=== PATIENT | male | born 1970 | race American Indian/Alaskan Native ===

== ENCOUNTER 2018-10-30 13:00 | Inpatient (IN) | payer OTHER ==
--- NOTE | 2018-10-30 13:41 | EDM.PDOC ---
ED HPI GENERAL MEDICAL PROBLEM - General Chief Complaint: Gastrointestinal Problem Stated Complaint: [facility] Time Seen by Provider: 10/30/18 13:40 Source of Information: Reports: Patient History Limitations: Reports: No Limitations - History of Present Illness INITIAL COMMENTS - FREE TEXT/NARRATIVE: pt arrived with jaundice and fatique. Onset: Gradual, Other (pt noticed the jaundice on thur. He has a known history of etoh abuse. He is not having pain. ) Duration: Hour(s): Location: Reports: Abdomen Associated Symptoms: Reports: Loss of Appetite, Weakness, Other (pt is very jaundiced. ) Abdomen Pain Score (Numeric/FACES): 1 - Related Data Allergies Allergy/AdvReac Type Severity Reaction Status Date / Time simvastatin Allergy Cannot Verified 10/30/18 13:08 Remember Home Meds: Home Meds Omeprazole [Prilosec] 40 mg PO DAILY 10/12/13 [History] traZODone 50 mg PO BEDTIME 06/09/16 [History] Baclofen 10 mg PO BEDTIME 10/30/18 [History] diphenhydrAMINE [Benadryl] 25 mg PO BEDTIME 10/30/18 [History] Past Medical History HEENT History: Reports: Allergic Rhinitis Cardiovascular History: Reports: High Cholesterol Respiratory History: Reports: Bronchitis, Recurrent, COPD Gastrointestinal History: Reports: GERD, Hiatal Hernia Musculoskeletal History: Reports: Back Pain, Chronic, Fracture, Osteoarthritis Hematologic History: Reports: B12 Deficiency Dermatologic History: Reports: Eczema - Infectious Disease History Infectious Disease History: Reports: Chicken Pox - Past Surgical History Dermatological Surgical History: Reports: None Social & Family History - Tobacco Use Smoking Status *Q: Former Smoker Used Tobacco, but Quit: Yes Month/Year Tobacco Last Used: 30 - Alcohol Use Days Per Week of Alcohol Use: 7 Number of Drinks Per Day: 5 Total Drinks Per Week: 35 - Recreational Drug Use Recreational Drug Use: No ED ROS GENERAL - Review of Systems Review Of Systems: See Below Constitutional: Reports: Weakness, Fatigue HEENT: Reports: No Symptoms Respiratory: Reports: No Symptoms Cardiovascular: Reports: No Symptoms Endocrine: Reports: No Symptoms GI/Abdominal: Reports: Other ( abdoman is soft. There is no sig tenderness. ) : Reports: No Symptoms Musculoskeletal: Reports: No Symptoms Skin: Reports: Jaundice Neurological: Reports: No Symptoms ED EXAM, GI/ABD - Physical Exam Exam: See Below Text/Narrative:: Pt arrived from [facility] very jaundiced. He has a 21,000 wbc. He does not have sig abdomanal pain. He is not vomiting. He has been drinking heavily until 1 week ago when he quit. General Appearance: Alert, Anxious, Mild Distress, Other (eyes show marked jaundice present. ) Ears: Normal TMs Nose: Normal Inspection Throat/Mouth: Normal Inspection Head: Atraumatic Neck: Normal Inspection Respiratory/Chest: No Respiratory Distress Cardiovascular: Regular Rate, Rhythm GI/Abdominal Exam: Soft, Other (mild lower abdomanal tenderness, no guarding. ) (Male) Exam: Deferred Rectal (Males) Exam: Deferred Back Exam: Normal Inspection Extremities: Normal Inspection Neurological: Alert, Oriented, Normal Cognition Psychiatric: Normal Affect Course - Vital Signs Last Recorded V/S: Last Vital Signs Temp 37.8 C 11/04/18 19:12 Pulse 89 11/04/18 19:12 Resp 18 11/04/18 19:12 BP 117/71 11/04/18 19:12 Pulse Ox 97 11/04/18 19:12 - Orders/Labs/Meds Orders: Medication Orders Al Hydroxide/Mg Hydroxide (Mag-Al Plus) 30 ml PO Q2H PRN PRN Reason: Epigastric pain Baclofen (Lioresal) 10 mg PO BEDTIME BONG Last Admin: 11/03/18 21:36 Dose: 10 mg Admin: 11/02/18 23:07 Dose: 10 mg Admin: 11/01/18 22:02 Dose: 10 mg Admin: 10/31/18 22:24 Dose: 10 mg Admin: 10/30/18 23:35 Dose: Not Given Diphenhydramine HCl (Benadryl) 25 mg PO Q6H PRN PRN Reason: Itching Last Admin: 11/03/18 21:36 Dose: 25 mg Furosemide (Lasix) 40 mg PO BIDDIURETIC BONG Piperacillin/Tazobactam/ (Dextrose 3.375 gm/ Premix) 50 mls @ 100 mls/hr IV Q6H BONG Last Admin: 11/04/18 17:46 Dose: 100 mls/hr Admin: 11/04/18 12:24 Dose: 100 mls/hr Admin: 11/04/18 05:50 Dose: 100 mls/hr Admin: 11/03/18 23:39 Dose: 100 mls/hr Admin: 11/03/18 17:16 Dose: 100 mls/hr Admin: 11/03/18 12:23 Dose: 100 mls/hr Admin: 11/03/18 06:14 Dose: 100 mls/hr Admin: 11/03/18 00:45 Dose: 100 mls/hr Admin: 11/02/18 17:59 Dose: 100 mls/hr Admin: 11/02/18 13:06 Dose: 100 mls/hr Admin: 11/02/18 05:50 Dose: 100 mls/hr Admin: 11/02/18 00:16 Dose: 100 mls/hr Admin: 11/01/18 18:48 Dose: 100 mls/hr Admin: 11/01/18 11:23 Dose: 100 mls/hr Admin: 11/01/18 05:24 Dose: 100 mls/hr Admin: 11/01/18 00:05 Dose: 100 mls/hr Admin: 10/31/18 17:45 Dose: 100 mls/hr Admin: 10/31/18 11:22 Dose: 100 mls/hr Melatonin (Melatonin) 9 mg PO BEDTIME [facility] Last Admin: 11/03/18 21:37 Dose: Not Given Admin: 11/02/18 23:07 Dose: 9 mg Admin: 11/01/18 22:02 Dose: 9 mg Admin: 10/31/18 22:24 Dose: 9 mg Admin: 10/30/18 23:35 Dose: Not Given Ondansetron HCl (Zofran) 4 mg IV Q4H PRN PRN Reason: Nausea/Vomiting Oxycodone HCl (Oxycodone) 5 mg PO Q4H PRN PRN Reason: Pain (moderate 4-6) Last Admin: 11/04/18 16:30 Dose: 5 mg Admin: 11/04/18 12:23 Dose: 5 mg Admin: 11/04/18 07:57 Dose: 5 mg Admin: 11/02/18 23:12 Dose: 5 mg Admin: 11/02/18 17:59 Dose: 5 mg Admin: 11/02/18 11:13 Dose: 5 mg Admin: 11/01/18 19:15 Dose: 5 mg Pantoprazole Sodium (Protonix Iv) 40 mg IVPUSH Q12H [facility] Last Admin: 11/04/18 11:10 Dose: 40 mg Admin: 11/03/18 23:39 Dose: 40 mg Admin: 11/03/18 12:15 Dose: 40 mg Phytonadione (Aquamephyton) 5 mg PO DAILY [facility] Last Admin: 11/04/18 11:04 Dose: 5 mg Admin: 11/03/18 09:26 Dose: 5 mg Admin: 11/02/18 09:20 Dose: 5 mg Admin: 11/01/18 15:36 Dose: 5 mg Senna/Docusate Sodium (Senna Plus) 1 tab PO BID PRN PRN Reason: Constipation Sodium Chloride (Saline Flush) 10 ml FLUSH ASDIRECTED PRN PRN Reason: Keep Vein Open Spironolactone (Aldactone) 25 mg PO BID [facility] Last Admin: 11/04/18 08:35 Dose: 25 mg Admin: 11/03/18 21:36 Dose: 25 mg Admin: 11/03/18 12:16 Dose: 25 mg Labs: Laboratory Tests 10/30/18 10/30/18 10/30/18 Range/Units 04:50 04:50 04:50 Ammonia (11-32) mmol/L [id number] 224 H (90-200) mg/dL Anti-Mitochondrial Ab 13.4 (0.0-20.0) Units Hepatitis A IgM Ab Negative (Negative) Hep Bs Antigen Negative (Negative) Hep B Core IgM Ab Negative (Negative) Hepatitis C Antibody <0.1 (0.0-0.9) s/co ratio 10/30/18 Range/Units 14:10 Ammonia 43 H (11-32) mmol/L [id number]-[id number] (90-200) mg/dL Anti-Mitochondrial Ab (0.0-20.0) Units Hepatitis A IgM Ab (Negative) Hep Bs Antigen (Negative) Hep B Core IgM Ab (Negative) Hepatitis C Antibody (0.0-0.9) s/co ratio Meds: Medications Generic Name Dose Route Start Last Admin Trade Name Freq PRN Reason Stop Dose Admin Al Hydroxide/Mg Hydroxide 30 ml 10/30/18 18:49 Mag-Al Plus PO Q2H PRN Epigastric pain Baclofen 10 mg 10/30/18 21:00 11/03/18 21:36 Lioresal PO 10 mg BEDTIME BONG Administration Diphenhydramine HCl 25 mg 11/03/18 11:52 11/03/18 21:36 Benadryl PO 25 mg Q6H PRN Administration Itching Furosemide 40 mg 11/05/18 08:00 Lasix PO BIDDIURETIC BONG Piperacillin/Tazobactam/ 50 mls @ 100 mls/hr 10/31/18 12:00 11/04/18 17:46 Dextrose 3.375 gm/ Premix IV 100 mls/hr Q6H BONG Administration Melatonin 9 mg 10/30/18 21:00 11/03/18 21:37 Melatonin PO Not Given BEDTIME BONG Ondansetron HCl 4 mg 10/30/18 16:45 Zofran IV Q4H PRN Nausea/Vomiting Oxycodone HCl 5 mg 10/30/18 16:45 11/04/18 16:30 Oxycodone PO 5 mg Q4H PRN Administration Pain (moderate 4-6) Pantoprazole Sodium 40 mg 11/03/18 11:30 11/04/18 11:10 Protonix Iv IVPUSH 40 mg Q12H BONG Administration Phytonadione 5 mg 11/01/18 15:00 11/04/18 11:04 Aquamephyton PO 5 mg DAILY BONG Administration Senna/Docusate Sodium 1 tab 10/30/18 16:45 Senna Plus PO BID PRN Constipation Sodium Chloride 10 ml 10/30/18 16:45 Saline Flush FLUSH ASDIRECTED PRN Keep Vein Open Spironolactone 25 mg 11/03/18 11:30 11/04/18 08:35 Aldactone PO 25 mg BID BONG Administration Discontinued Medications Generic Name Dose Route Start Last Admin Trade Name Freq PRN Reason Stop Dose Admin Bisacodyl 10 mg 10/30/18 15:02 10/30/18 16:49 Dulcolax RECTAL 10/30/18 15:03 10 mg ONETIME ONE Administration Bisacodyl Confirm 10/30/18 16:53 10/30/18 17:45 Dulcolax Administered 10/30/18 16:54 10 mg Dose Administration 10 mg .ROUTE .STK-MED ONE Bisacodyl 10 mg 11/02/18 10:30 11/02/18 10:38 Dulcolax PO 11/02/18 10:31 10 mg ONETIME ONE Administration Bisacodyl 10 mg 11/02/18 20:00 11/02/18 19:47 Dulcolax PO 11/02/18 20:01 10 mg ONETIME ONE Administration Fentanyl Confirm 11/03/18 07:45 Sublimaze Administered 11/03/18 07:46 Dose 100 mcg .ROUTE .STK-MED ONE Furosemide 20 mg 11/03/18 12:00 11/03/18 12:17 Lasix IVPUSH 11/03/18 12:01 20 mg NOW ONE Administration Furosemide 20 mg 11/04/18 10:15 11/04/18 11:10 Lasix IVPUSH 11/04/18 10:16 20 mg ONETIME ONE Administration Furosemide 20 mg 11/04/18 16:00 11/04/18 16:22 Lasix IVPUSH 11/04/18 16:01 20 mg ONETIME ONE Administration Sodium Chloride 1,000 mls @ 500 mls/hr 10/30/18 13:45 10/30/18 13:44 Normal Saline IV 500 mls/hr ASDIRECTED BONG Administration Sodium Chloride 100 mls @ 3 mls/sec 10/30/18 14:32 10/30/18 16:44 Normal Saline IV 10/30/18 14:33 3 mls/sec ONETIME ONE Administration Sodium Chloride 79 mls @ 3 mls/sec 10/30/18 15:05 10/30/18 15:09 Normal Saline IV 10/30/18 15:06 3 mls/sec ONETIME ONE Administration Piperacillin/Tazobactam/ 50 mls @ 100 mls/hr 10/30/18 18:00 10/31/18 05:38 Dextrose 3.375 gm/ Premix IV 100 mls/hr Q6H BONG Administration Sodium Chloride 1,000 mls @ 125 mls/hr 10/30/18 16:45 10/31/18 11:23 Normal Saline IV 125 mls/hr ASDIRECTED BONG Administration Potassium Chloride 20 meq/ 102 mls @ 51 mls/hr 10/31/18 06:00 10/31/18 05:59 Lidocaine HCl 2 ml/ Premix IV 10/31/18 07:59 51 mls/hr ONETIME ONE Administration Potassium Chloride Confirm 10/31/18 05:54 10/31/18 10:39 Kcl 20 Meq In Water 100 Ml Administered 10/31/18 05:55 Not Given Dose 100 mls @ as directed .ROUTE .STK-MED ONE Sodium Chloride 1,000 mls @ 500 mls/hr 11/01/18 20:30 11/01/18 20:50 Normal Saline IV 500 mls/hr ASDIRECTED BONG Administration Sodium Chloride 1,000 mls @ 125 mls/hr 11/01/18 22:00 11/02/18 05:52 Normal Saline IV 125 mls/hr ASDIRECTED BONG Administration Sodium Chloride 1,000 mls @ 50 mls/hr 11/02/18 10:00 11/02/18 19:47 Normal Saline IV 50 mls/hr ASDIRECTED BONG Administration Sodium Chloride 100 mls @ 3.5 mls/sec 11/02/18 12:04 11/02/18 12:17 Normal Saline IV 11/02/18 12:05 3 mls/sec ONETIME ONE Administration Ibuprofen 600 mg 10/30/18 23:28 11/02/18 17:13 Motrin PO 600 mg Q6H PRN Administration Fever Influenza Virus Vaccine 1 each 10/31/18 14:00 10/31/18 15:14 Pharmacy To Dose - Influenza Vaccine IM 10/31/18 14:01 Not Given ONETIME ONE Influenza Virus Vaccine 60 mcg 11/01/18 10:00 11/01/18 11:21 Fluzone Quad 2731-6905 Syringe IM 11/01/18 10:01 60 mcg .ONCE ONE Administration Iohexol 20 ml 11/02/18 10:30 11/02/18 12:18 Omnipaque PO 20 ml ASDIRECTED BONG Administration Iopamidol 150 ml 10/30/18 14:45 10/30/18 15:09 Isovue-300 (61%) IV 128 ml . DIRECTED BONG Administration Iopamidol 128 ml 10/30/18 15:15 Isovue-300 (61%) IV . DIRECTED BONG Iopamidol 100 ml 11/02/18 12:15 11/02/18 12:23 Isovue-300 (61%) IV 11/02/18 13:00 100 ml . DIRECTED BONG Administration Midazolam HCl Confirm 11/03/18 07:45 Versed 1 Mg/Ml Administered 11/03/18 07:46 Dose 2 mg .ROUTE .STK-MED ONE Polyethylene Glycol 238 gm 11/02/18 17:00 11/02/18 16:49 Miralax PO 11/02/18 17:01 238 gm ONETIME ONE Administration Potassium Chloride 20 meq 10/31/18 05:38 10/31/18 10:39 Klor-Con M20 PO 10/31/18 05:39 Not Given ONETIME ONE Potassium Chloride 40 meq 10/31/18 09:00 10/31/18 11:22 Klor-Con M20 PO 10/31/18 09:01 40 meq ONETIME ONE Administration Potassium Chloride 40 meq 10/31/18 14:30 10/31/18 15:30 Klor-Con M20 PO 10/31/18 14:31 40 meq ONETIME ONE Administration Potassium Chloride 40 meq 11/01/18 09:00 11/01/18 15:31 Klor-Con M20 PO 11/01/18 09:01 40 meq ONETIME ONE Administration Potassium Chloride 40 meq 11/01/18 15:00 11/01/18 15:51 Klor-Con M20 PO 11/01/18 15:01 40 meq ONETIME ONE Administration Potassium Chloride 40 meq 11/01/18 21:00 11/01/18 22:02 Klor-Con M20 PO 11/01/18 21:01 40 meq ONETIME ONE Administration Potassium Chloride 40 meq 11/02/18 09:00 11/02/18 09:08 Klor-Con M20 PO 11/02/18 09:01 40 meq ONETIME ONE Administration Potassium Chloride 40 meq 11/02/18 13:00 11/02/18 13:07 Klor-Con M20 PO 11/02/18 13:01 40 meq ONETIME ONE Administration Potassium Chloride 40 meq 11/04/18 09:30 11/04/18 11:10 Klor-Con M20 PO 11/04/18 09:31 40 meq ONETIME ONE Administration Propofol Confirm 11/03/18 07:45 Diprivan 20 Ml Administered 11/03/18 07:46 Dose 200 mg .ROUTE .STK-MED ONE Propofol Confirm 11/03/18 07:55 Diprivan 20 Ml Administered 11/03/18 07:56 Dose 200 mg .ROUTE .STK-MED ONE Sodium Chloride 10 ml 10/30/18 15:05 10/30/18 15:09 Saline Flush FLUSH 10 ml ONETIME PRN Administration PER RADIOLOGY PROTOCOL Sodium Chloride 10 ml 11/02/18 12:04 11/02/18 12:17 Saline Flush FLUSH 11/02/18 12:05 10 ml ONETIME ONE Administration - Re-Assessments/Exams Free Text/Narrative Re-Assessment/Exam: 10/30/18 14:11 pt has a bilirun of 23. He is not vomiting or having severe pain. He has a wbc of 21,000. > Departure - Departure Time of Disposition: 14:38 Disposition: Admitted As Inpatient 68 Condition: Fair Clinical Impression: Liver disease due to alcohol, Jaundice - Discharge Information
[2018-10-30] MEDS ORDERED: Sodium Chloride 0.9% 1,000 ML IV SCH (13:45)
[2018-10-30] MEDS ORDERED: Sodium Chloride 0.9% 100 ML IV ONE (14:32)
[2018-10-30] MEDS ORDERED: Iopamidol 612 MG/ML 150 ML Bottle IV SCH ×2 (14:45→15:15)
[2018-10-30] MEDS ORDERED: Bisacodyl 10 MG Supp RECTAL ONE (15:02)
[2018-10-30] MEDS ORDERED: Sodium Chloride 0.9% 10 ML Syringe FLUSH PRN ×2 (15:05→16:45)
--- NOTE | 2018-10-30 16:38 | PCM.HP ---
H&P History of Present Illness - General Date of Service: 10/30/18 Admit Problem/Dx: Admission Diagnosis/Problem Admission Diagnosis/Problem Jaundice Source of Information: Patient, Family, Provider, RN Notes Reviewed History Limitations: Reports: No Limitations - History of Present Illness Initial Comments - Free Text/Narative: Mr. Mckee is a 48-year-old gentleman who is admitted through the emergency department with jaundice and elevation in bilirubin of 24. He has a known and long-standing history of daily alcohol use, reporting 4-5 drinks per day. For the past week has noted development of significant jaundice and stop consuming alcohol about 6 days ago. He denies any preceding history of liver disease and also denies any family history of liver disease. Current medications include omeprazole, Lipitor, and trazodone. He has no significant risk factors for infectious hepatitis. Associated with development of jaundice has been some nausea and progressive weakness with fatigue. - Related Data Allergies/Adverse Reactions: Allergies Allergy/AdvReac Type Severity Reaction Status Date / Time simvastatin Allergy Cannot Verified 10/30/18 13:08 Remember Home Medications: Home Meds Omeprazole [Prilosec] 40 mg PO DAILY 10/12/13 [History] traZODone 50 mg PO BEDTIME 06/09/16 [History] Baclofen 10 mg PO BEDTIME 10/30/18 [History] diphenhydrAMINE [Benadryl] 25 mg PO BEDTIME 10/30/18 [History] Past Medical History HEENT History: Reports: Allergic Rhinitis Cardiovascular History: Reports: High Cholesterol Respiratory History: Reports: Bronchitis, Recurrent, COPD Gastrointestinal History: Reports: GERD, Hiatal Hernia Musculoskeletal History: Reports: Back Pain, Chronic, Fracture, Osteoarthritis Hematologic History: Reports: B12 Deficiency Dermatologic History: Reports: Eczema - Infectious Disease History Infectious Disease History: Reports: Chicken Pox - Past Surgical History Dermatological Surgical History: Reports: None Social & Family History - Tobacco Use Smoking Status *Q: Former Smoker Used Tobacco, but Quit: Yes Month/Year Tobacco Last Used: 30 - Alcohol Use Days Per Week of Alcohol Use: 7 Number of Drinks Per Day: 5 Total Drinks Per Week: 35 - Recreational Drug Use Recreational Drug Use: No H&P Review of Systems - Review of Systems: Review Of Systems: See Below General: Reports: Weakness. Denies: Fever, Chills HEENT: Reports: No Symptoms Pulmonary: Reports: No Symptoms Cardiovascular: Reports: No Symptoms Gastrointestinal: Reports: Decreased Appetite, Nausea. Denies: Abdominal Pain, Black Stool, Bloody Stool, Constipation, Diarrhea, Difficulty Swallowing, Distension, Vomiting Genitourinary: Reports: No Symptoms Musculoskeletal: Reports: No Symptoms Skin: Reports: Jaundice, Bruising, Change in Color. Denies: Pruritis, Wound, Change in Hair/Nails Psychiatric: Reports: No Symptoms Neurological: Reports: No Symptoms Hematologic/Lymphatic: Reports: No Symptoms Immunologic: Reports: No Symptoms Exam - Exam Exam: See Below - Vital Signs Vital Signs: Last Vital Signs Temp 98.3 F 10/30/18 13:06 Pulse 84 10/30/18 13:54 Resp 18 10/30/18 13:54 BP 122/70 10/30/18 13:54 Pulse Ox 97 10/30/18 13:54 Weight: 188 lb - Exam Quality Assessment: DVT Prophylaxis General: Alert, Oriented, Cooperative, Mild Distress HEENT: Conjunctiva Clear, Hearing Intact, Mucosa Moist & [place], Normal Nasal Septum, Posterior Pharynx Clear, Pupils Equal Neck: Supple, Trachea Midline, +2 Carotid Pulse wo Bruit Lungs: Clear to Auscultation, Normal Respiratory Effort Cardiovascular: Regular Rate, Regular Rhythm, Normal S1, Normal S2. No: Systolic Murmur, Diastolic Murmur GI/Abdominal Exam: Soft, Non-Tender, No Organomegaly, No Distention Back Exam: Normal Inspection, Full Range of Motion Extremities: Non-Tender, No Pedal Edema Skin: Warm, Dry, Intact, Other (Jaundice, spider angiomas upper chest and back) Neurological: Cranial Nerves Intact, Strength Equal Bilateral, Normal Speech, Normal Tone, Sensation Intact. No: Focal Deficit Neuro Extensive - Mental Status: Alert, Oriented x3, Normal Mood/Affect, Normal Cognition, Memory Intact - Patient Data Lab Results Last 24 hrs: Laboratory Results - last 24 hr 10/30/18 Range/Units 14:10 Ammonia 43 H (11-32) mmol/L *Q Meaningful Use (ADM) - VTE Risk Assess *Q Each Risk Factor Represents 1 Point: Age 41 - 59 years, Obesity ( BMI > 25 kg/m2 ) Total Score 1 Point Risk Factors: 2 Each Risk Factor Represents 2 Points: None Total Score 2 Point Risk Factors: 0 Each Risk Factor Represents 3 Points: None Total Score 3 Point Risk Factors: 0 Each Risk Factor Represents 5 Points: None Total Score 5 Point Risk Factors: 0 Venous Thromboembolism Risk Factor Score *Q: 2 Problem List Initiated/Reviewed/Updated: Yes Orders Last 24hrs: Active Orders 24 hr Category Date Time Status Patient Status Manage Transfer [TRANSFER] Routine ADT 10/30/18 15:59 Active Enema [RC] ASDIRECTED Care 10/30/18 15:02 Active Abdomen Ltd [US] Stat Exams 10/30/18 13:35 Taken Abdomen Pelvis w Cont [CT] Stat Exams 10/30/18 14:22 Taken Iopamidol [Isovue-300 (61%)] Med 10/30/18 15:15 Active 128 ml IV . DIRECTED Sodium Chloride 0.9% [Normal Saline] 1,000 ml Med 10/30/18 13:45 Active IV ASDIRECTED Sodium Chloride 0.9% [Saline Flush] Med 10/30/18 15:05 Active 10 ml FLUSH ONETIME PRN Resuscitation Status Routine Resus Stat 10/30/18 16:02 Ordered Medication Orders Sodium Chloride (Normal Saline) 1,000 mls @ 500 mls/hr IV ASDIRECTED BONG Last Admin: 10/30/18 13:44 Dose: 500 mls/hr Iopamidol (Isovue-300 (61%)) 128 ml IV . DIRECTED BONG Sodium Chloride (Saline Flush) 10 ml FLUSH ONETIME PRN PRN Reason: PER RADIOLOGY PROTOCOL Last Admin: 10/30/18 15:09 Dose: 10 ml Assessment/Plan Comment:: ASSESSMENT AND PLAN SEVERE JAUNDICE-likely secondary to underlying cirrhosis, history of chronic alcohol use. Will require further evaluation for other underlying liver disease. CT scan shows evidence of cirrhosis, spider angiomas noted upper chest and back. Bilirubin elevated at 24 with a direct bilirubin of 19. Ferritin level significantly elevated at 2400. -Stop all alcohol use -IV fluids for hydration -Medication for pain and nausea as needed -Further laboratory evaluation including; iron and iron-binding, serology for viral hepatitis, alpha-1 antitrypsin, JAQUELINE, anti-smooth muscle antibody, antimitochondrial antibody, ceruloplasmin -MRCP in a.m. to rule out obstructing process -Outpatient referral to gastroenterology CHRONIC ALCOHOL DEPENDENCE -Alcohol cessation -Outpatient alcohol treatment MAINTENANCE ISSUES -DVT prophylaxis; INR elevated at greater than 2 -GI prophylaxis; not indicated -Oneal catheter; not indicated -Nutrition; regular diet -Nicotine dependence; not required CODE STATUS-FULL CODE ADMISSION STATUS-patient will be admitted to inpatient status, expect at least a 2 night hospital stay for evaluation and management of problems as outlined above. At the time of this admission I do not reasonably expected evaluation and management of this problem will require more than a 96 hour hospital stay. DISPOSITION-anticipate discharge to home after the hospital stay. PRIMARY CARE PROVIDER-
[2018-10-30] MEDS ORDERED: Ondansetron 4 MG/2 ML SDV IV PRN (16:45)
[2018-10-30] MEDS ORDERED: Bisacodyl 10 MG Supp ONE (16:53)
[2018-10-30] MEDS: Sodium Chloride 0.9% 1,000 ML IV SCH (17:40)
[2018-10-30] MEDS: Piperacillin/Tazobactam/Dext 3.375 GM in Premix Bag 1 BAG IV SCH ×2 (17:41→23:39)
[2018-10-30] MEDS ORDERED: Aluminum Hydroxide/Magnesium Hydroxide/Simethicone Susp 30 ML Cup PO PRN (18:49)
[2018-10-30] MEDS: Baclofen 10 MG Tab PO SCH (23:35)
[2018-10-30] MEDS: Melatonin 3 MG Tab PO SCH (23:35)
[2018-10-30] MEDS: Ibuprofen 600 MG Tab PO PRN (23:38)
--- NOTE | 2018-10-31 01:04 | PCM.SN ---
- Free Text/Narrative Note: call at 23:28 call from [address] [place] [address], request for medication for fever O:temp 101.5-94-18 B/P 119/73 O2 sat 96% A: fever P: continue IV fluids and medications, add Motrin 600mg po every 6 hours as needed for pain or fever.
[2018-10-31] MEDS: Sodium Chloride 0.9% 1,000 ML IV SCH ×2 (02:50→11:23)
[2018-10-31] MEDS: Piperacillin/Tazobactam/Dext 3.375 GM in Premix Bag 1 BAG IV SCH ×3 (05:38→17:45)
[2018-10-31] MEDS ORDERED: Potassium Chloride 20 MEQ Tab.ER PO ONE ×3 (05:38→14:30)
[2018-10-31] MEDS ORDERED: Potassium Chloride 20 MEQ, Lidocaine 1% 2 ML in Sodium Chloride 0.9% 100 ML IV SCH (05:45)
[2018-10-31] MEDS ORDERED: Potassium Chloride 100 ML ONE (05:54)
[2018-10-31] MEDS ORDERED: Potassium Chloride 20 MEQ, Lidocaine 1% 2 ML in Premix Bag 1 BAG IV ONE (06:00)
--- NOTE | 2018-10-31 14:11 | PCM.PN ---
- General Info Date of Service: 10/31/18 Subjective Update: Mr. Mckee has been stable since yesterday, he's had no nausea or vomiting and appetite has been excellent. Modest improvement in bilirubin level since admission. Evaluation for underlying etiology pending with several laboratory studies having been sent to the reference lab. Functional Status: Reports: Pain Controlled, Tolerating Diet, Urinating - Review of Systems General: Reports: Fever, Weakness. Denies: Chills Pulmonary: Reports: No Symptoms Cardiovascular: Reports: No Symptoms Gastrointestinal: Denies: Abdominal Pain, Difficulty Swallowing, Nausea, Vomiting Skin: Reports: Jaundice - Patient Data Vitals - Most Recent: Last Vital Signs Temp 96.4 F 10/31/18 10:29 Pulse 91 10/31/18 10:29 Resp 16 10/31/18 10:29 BP 136/73 10/31/18 10:29 Pulse Ox 98 10/31/18 10:29 Weight - Most Recent: 186 lb 5.99 oz I&O - Last 24 Hours: Intake & Output 10/30/18 10/31/18 10/31/18 22:59 06:59 14:59 Intake Total 1379 240 Output Total 300 Balance -300 1379 240 Lab Results Last 24 Hours: Laboratory Results - last 24 hr 10/30/18 10/30/18 10/31/18 Range/Units 14:10 16:45 04:50 WBC 19.4 H (4.5-11.0) K/uL RBC 3.77 L (4.30-5.90) M/uL Hgb 12.9 D (12.0-15.0) g/dL Hct 36.1 L (40.0-54.0) % MCV 96 (80-98) fL MCH 34 H (27-31) pg MCHC 36 (32-36) % Plt Count 328 (150-400) K/uL Neut % (Auto) 83 H (36-66) % Lymph % (Auto) 6 L (24-44) % [place] % (Auto) 10 H (2-6) % Eos % (Auto) 1 L (2-4) % Baso % (Auto) 1 (0-1) % PT (9.5-12.0) sec INR (0.80-1.20) Sodium (140-148) mmol/L Potassium (3.6-5.2) mmol/L Chloride (100-108) mmol/L Carbon Dioxide (21-32) mmol/L Anion Gap (5.0-14.0) mmol/L BUN (7-18) mg/dL Creatinine (0.8-1.3) mg/dL Est Cr Clr Drug Dosing mL/min Estimated GFR (MDRD) (>60) Glucose (74-106) mg/dL Calcium (8.5-10.1) mg/dL Magnesium (1.8-2.4) mg/dL Iron (65-175) ug/dL TIBC (250-450) ug/dl % Saturation (20-55) % Ferritin 2417 H (8-388) ng/ml Total Bilirubin (0.2-1.0) mg/dL Direct Bilirubin 19.83 H (0.0-0.2) mg/dL AST (15-37) U/L ALT (12-78) U/L Alkaline Phosphatase (46-116) U/L Ammonia 43 H (11-32) mmol/L Total Protein (6.4-8.2) g/dL Albumin (3.4-5.0) g/dL Globulin (2.3-3.5) g/dL Albumin/Globulin Ratio (1.2-2.2) 10/31/18 10/31/18 10/31/18 Range/Units 04:50 04:50 04:50 WBC (4.5-11.0) K/uL RBC (4.30-5.90) M/uL Hgb (12.0-15.0) g/dL Hct (40.0-54.0) % MCV (80-98) fL MCH (27-31) pg MCHC (32-36) % Plt Count (150-400) K/uL Neut % (Auto) (36-66) % Lymph % (Auto) (24-44) % [place] % (Auto) (2-6) % Eos % (Auto) (2-4) % Baso % (Auto) (0-1) % PT 22.6 H (9.5-12.0) sec INR 2.15 H (0.80-1.20) Sodium 136 L (140-148) mmol/L Potassium 2.8 L* (3.6-5.2) mmol/L Chloride 101 (100-108) mmol/L Carbon Dioxide 24 (21-32) mmol/L Anion Gap 13.8 (5.0-14.0) mmol/L BUN 15 (7-18) mg/dL Creatinine 1.2 (0.8-1.3) mg/dL Est Cr Clr Drug Dosing 74.42 mL/min Estimated GFR (MDRD) > 60 (>60) Glucose 94 (74-106) mg/dL Calcium 7.2 L (8.5-10.1) mg/dL Magnesium (1.8-2.4) mg/dL Iron 78 (65-175) ug/dL TIBC 90 L (250-450) ug/dl % Saturation 87 H (20-55) % Ferritin (8-388) ng/ml Total Bilirubin 21.0 H D (0.2-1.0) mg/dL Direct Bilirubin 18.55 H (0.0-0.2) mg/dL AST 130 H (15-37) U/L ALT 43 (12-78) U/L Alkaline Phosphatase 190 H (46-116) U/L Ammonia (11-32) mmol/L Total Protein 5.9 L (6.4-8.2) g/dL Albumin 1.5 L (3.4-5.0) g/dL Globulin 4.4 H (2.3-3.5) g/dL Albumin/Globulin Ratio 0.3 L (1.2-2.2) 10/31/18 Range/Units 05:37 WBC (4.5-11.0) K/uL RBC (4.30-5.90) M/uL Hgb (12.0-15.0) g/dL Hct (40.0-54.0) % MCV (80-98) fL MCH (27-31) pg MCHC (32-36) % Plt Count (150-400) K/uL Neut % (Auto) (36-66) % Lymph % (Auto) (24-44) % [place] % (Auto) (2-6) % Eos % (Auto) (2-4) % Baso % (Auto) (0-1) % PT (9.5-12.0) sec INR (0.80-1.20) Sodium (140-148) mmol/L Potassium (3.6-5.2) mmol/L Chloride (100-108) mmol/L Carbon Dioxide (21-32) mmol/L Anion Gap (5.0-14.0) mmol/L BUN (7-18) mg/dL Creatinine (0.8-1.3) mg/dL Est Cr Clr Drug Dosing mL/min Estimated GFR (MDRD) (>60) Glucose (74-106) mg/dL Calcium (8.5-10.1) mg/dL Magnesium 2.1 (1.8-2.4) mg/dL Iron (65-175) ug/dL TIBC (250-450) ug/dl % Saturation (20-55) % Ferritin (8-388) ng/ml Total Bilirubin (0.2-1.0) mg/dL Direct Bilirubin (0.0-0.2) mg/dL AST (15-37) U/L ALT (12-78) U/L Alkaline Phosphatase (46-116) U/L Ammonia (11-32) mmol/L Total Protein (6.4-8.2) g/dL Albumin (3.4-5.0) g/dL Globulin (2.3-3.5) g/dL Albumin/Globulin Ratio (1.2-2.2) Med Orders - Current: Current Medications Al Hydroxide/Mg Hydroxide (Mag-Al Plus) 30 ml PO Q2H PRN PRN Reason: Epigastric pain Baclofen (Lioresal) 10 mg PO BEDTIME [facility] Last Admin: 10/30/18 23:35 Dose: Not Given Piperacillin/Tazobactam/ (Dextrose 3.375 gm/ Premix) 50 mls @ 100 mls/hr IV Q6H [facility] Last Admin: 10/31/18 11:22 Dose: 100 mls/hr Ibuprofen (Motrin) 600 mg PO Q6H PRN PRN Reason: Fever Last Admin: 10/30/18 23:38 Dose: 600 mg Melatonin (Melatonin) 9 mg PO BEDTIME [facility] Last Admin: 10/30/18 23:35 Dose: Not Given Ondansetron HCl (Zofran) 4 mg IV Q4H PRN PRN Reason: Nausea/Vomiting Oxycodone HCl (Oxycodone) 5 mg PO Q4H PRN PRN Reason: Pain (moderate 4-6) Potassium Chloride (Klor-Con M20) 40 meq PO ONETIME ONE Stop: 10/31/18 14:31 Senna/Docusate Sodium (Senna Plus) 1 tab PO BID PRN PRN Reason: Constipation Sodium Chloride (Saline Flush) 10 ml FLUSH ASDIRECTED PRN PRN Reason: Keep Vein Open Discontinued Medications Bisacodyl (Dulcolax) 10 mg RECTAL ONETIME ONE Stop: 10/30/18 15:03 Last Admin: 10/30/18 16:49 Dose: 10 mg Bisacodyl (Dulcolax) Confirm Administered Dose 10 mg .ROUTE .STK-MED ONE Stop: 10/30/18 16:54 Last Admin: 10/30/18 17:45 Dose: 10 mg Sodium Chloride (Normal Saline) 1,000 mls @ 500 mls/hr IV ASDIRECTED [facility] Last Admin: 10/30/18 13:44 Dose: 500 mls/hr Sodium Chloride (Normal Saline) 100 mls @ 3 mls/sec IV ONETIME ONE Stop: 10/30/18 14:33 Last Admin: 10/30/18 16:44 Dose: 3 mls/sec Sodium Chloride (Normal Saline) 79 mls @ 3 mls/sec IV ONETIME ONE Stop: 10/30/18 15:06 Last Admin: 10/30/18 15:09 Dose: 3 mls/sec Piperacillin/Tazobactam/ (Dextrose 3.375 gm/ Premix) 50 mls @ 100 mls/hr IV Q6H [facility] Last Admin: 10/31/18 05:38 Dose: 100 mls/hr Sodium Chloride (Normal Saline) 1,000 mls @ 125 mls/hr IV ASDIRECTED [facility] Last Admin: 10/31/18 11:23 Dose: 125 mls/hr Potassium Chloride 20 meq/ (Lidocaine HCl 2 ml/ Premix) 102 mls @ 51 mls/hr IV ONETIME ONE Stop: 10/31/18 07:59 Last Admin: 10/31/18 05:59 Dose: 51 mls/hr Potassium Chloride (Kcl 20 Meq In Water 100 Ml) Confirm Administered Dose 100 mls @ as directed .ROUTE .STK-MED ONE Stop: 10/31/18 05:55 Last Admin: 10/31/18 10:39 Dose: Not Given Influenza Virus Vaccine (Pharmacy To Dose - Influenza Vaccine) 1 each IM ONETIME ONE Stop: 10/31/18 14:01 Iopamidol (Isovue-300 (61%)) 150 ml IV . DIRECTED [facility] Last Admin: 10/30/18 15:09 Dose: 128 ml Iopamidol (Isovue-300 (61%)) 128 ml IV . DIRECTED [facility] Potassium Chloride (Klor-Con M20) 20 meq PO ONETIME ONE Stop: 10/31/18 05:39 Last Admin: 10/31/18 10:39 Dose: Not Given Potassium Chloride (Klor-Con M20) 40 meq PO ONETIME ONE Stop: 10/31/18 09:01 Last Admin: 10/31/18 11:22 Dose: 40 meq Sodium Chloride (Saline Flush) 10 ml FLUSH ONETIME PRN PRN Reason: PER RADIOLOGY PROTOCOL Last Admin: 10/30/18 15:09 Dose: 10 ml - Exam Quality Assessment: DVT Prophylaxis General: Alert, Oriented, Cooperative, Mild Distress Lungs: Clear to Auscultation, Normal Respiratory Effort Cardiovascular: Regular Rate, Regular Rhythm, No Murmurs GI/Abdominal Exam: Soft, Non-Tender, No Organomegaly, No Distention Extremities: Normal Inspection, Non-Tender, No Pedal Edema Skin: Other (Jaundice) - Problem List Review Problem List Initiated/Reviewed/Updated: Yes - My Orders Last 24 Hours: My Active Orders 10/30/18 16:02 Resuscitation Status Routine 10/30/18 16:45 Patient Status [ADT] Routine Ambulate [RC] QID Height and Weight [RC] DAILY Intake and Output [RC] QSHIFT Notify Provider Vital Signs [RC] ASDIRECTED Oxygen Therapy [RC] PRN Peripheral IV Care [RC] Q12H Up to Chair [RC] QID Vital Signs [RC] Q4H Docusate Sodium/Sennosides [Senna Plus] 1 tab PO BID PRN Ondansetron [Zofran] 4 mg IV Q4H PRN Sodium Chloride 0.9% [Saline Flush] 10 ml FLUSH ASDIRECTED PRN oxyCODONE 5 mg PO Q4H PRN Peripheral IV Insertion Adult [OM.PC] Routine Sequential Compression Device [OM.PC] Per Unit Routine 10/30/18 17:00 ACTIN (SMOOTH MUSCLE) ANTIBODY Routine JAQUELINE W/RFX TO ALL IF POSITIVE Routine CERULOPLASMIN Routine 10/30/18 18:49 Alum Hydrox/Mag Hydrox/Simeth [Mag-Al Plus] 30 ml PO Q2H PRN 10/30/18 21:00 Baclofen [Lioresal] 10 mg PO BEDTIME Melatonin 9 mg PO BEDTIME 10/31/18 12:00 Piperacillin/Tazobactam/Dext [Zosyn in Dextrose Iso-Osmotic 3.375 GM] 3.375 gm Premix Bag 1 bag IV Q6H 10/31/18 13:58 Potassium Chloride [Klor-Con M20] 40 meq PO ONETIME ONE 10/31/18 14:00 Convert IV to Saline Lock [OM.PC] Routine 10/31/18 17:00 POTASSIUM,K [CHEM] Stat 11/01/18 05:00 CBC WITH AUTO DIFF [HEME] Timed COMPREHENSIVE METABOLIC PN,CMP [CHEM] Timed MAGNESIUM [CHEM] Timed 11/01/18 08:00 Cholangiopancreatography [MR] Urgent - Plan Plan:: ASSESSMENT AND PLAN SEVERE JAUNDICE-likely secondary to underlying cirrhosis, history of chronic alcohol use. Will require further evaluation for other underlying liver disease. CT scan shows evidence of cirrhosis, spider angiomas noted upper chest and back. On June improvement in bilirubin since yesterday, no nausea or vomiting, appetite improved. Unable to obtain MRCP today because of the weather , staff was unable to make it into the hospital. -Stop all alcohol use -Saline lock IV -Medication for pain and nausea as needed -Further laboratory evaluation including; serology for viral hepatitis, alpha-1 antitrypsin, JAQUELINE, anti-smooth muscle antibody, antimitochondrial antibody, ceruloplasmin -MRCP in a.m. to rule out obstructing process -Outpatient referral to gastroenterology CHRONIC ALCOHOL DEPENDENCE -Alcohol cessation -Outpatient alcohol treatment MAINTENANCE ISSUES -DVT prophylaxis; INR elevated at greater than 2 -GI prophylaxis; not indicated -Oneal catheter; not indicated -Nutrition; regular diet -Nicotine dependence; not required CODE STATUS-FULL CODE ADMISSION STATUS-patient will be admitted to inpatient status, expect at least a 2 night hospital stay for evaluation and management of problems as outlined above. At the time of this admission I do not reasonably expected evaluation and management of this problem will require more than a 96 hour hospital stay. DISPOSITION-anticipate discharge to home after the hospital stay. PRIMARY CARE PROVIDER-
[2018-10-31] MEDS: Ibuprofen 600 MG Tab PO PRN (19:32)
[2018-10-31] MEDS: Melatonin 3 MG Tab PO SCH (22:24)
[2018-10-31] MEDS: Baclofen 10 MG Tab PO SCH (22:24)
[2018-11-01] MEDS: Piperacillin/Tazobactam/Dext 3.375 GM in Premix Bag 1 BAG IV SCH ×4 (00:05→18:48)
[2018-11-01] MEDS ORDERED: Potassium Chloride 20 MEQ Tab.ER PO ONE ×3 (09:00→21:00)
--- NOTE | 2018-11-01 13:46 | MR ---
MRCP Technique: Routine MRCP sequences. The gallbladder wall is markedly thickened. The wall measures 9 mm. There is pericholecystic fluid. There is trace ascites around the margins of the liver. There is material within the gallbladder. The findings may reflect tumefactive sludge. Stones are not excluded. The common bile duct is within normal limits. The duct measures 5 mm. There is fatty infiltration throughout the liver. There are no focal hepatic lesions. The liver is enlarged measuring 23 cm. The pancreas is unremarkable. The spleen is normal in size. Impression: 1. Fatty infiltration of the liver. There is hepatomegaly. 2. Trace ascites. 3. Gallbladder wall thickening with sludge and/or stones. There is pericholecystic fluid. There is no evidence for common bile duct obstruction.
--- NOTE | 2018-11-01 14:58 | PCM.PN ---
- General Info Date of Service: 11/01/18 Subjective Update: Mr. Mehta has noted further improvement since yesterday, no nausea, vomiting, or abdominal pain. Appetite has been good with stable vital signs. White count remains elevated but he has been afebrile since yesterday. Over the last 24 hours has noted some intermittent blood in the stool, which he reports is a fairly small amount. MRCP performed today showing no evidence of ductal obstruction but does document appearance of acute cholecystitis. Functional Status: Reports: Tolerating Diet, Urinating - Review of Systems General: Reports: Weakness. Denies: Fever, Chills Pulmonary: Reports: Shortness of Breath. Denies: Pleuritic Chest Pain, Cough, Sputum, Hemoptysis, Wheezing Cardiovascular: Reports: Dyspnea on Exertion. Denies: Chest Pain, Palpitations , Orthopnea, PND, Edema, Lightheadedness Gastrointestinal: Reports: No Symptoms - Patient Data Vitals - Most Recent: Last Vital Signs Temp 98.7 F 11/01/18 14:36 Pulse 91 11/01/18 14:36 Resp 16 11/01/18 14:36 BP 123/67 11/01/18 14:36 Pulse Ox 95 11/01/18 14:36 Weight - Most Recent: 194 lb I&O - Last 24 Hours: Intake & Output 10/31/18 11/01/18 11/01/18 22:59 06:59 14:59 Intake Total 650 605 Output Total 825 Balance 650 -220 Lab Results Last 24 Hours: Laboratory Results - last 24 hr 10/31/18 11/01/18 11/01/18 Range/Units 17:00 04:15 04:15 WBC 18.7 H (4.5-11.0) K/uL RBC 3.73 L (4.30-5.90) M/uL Hgb 13.0 (12.0-15.0) g/dL Hct 35.9 L (40.0-54.0) % MCV 96 (80-98) fL MCH 35 H (27-31) pg MCHC 36 (32-36) % Plt Count 332 (150-400) K/uL Neut % (Auto) 81 H (36-66) % Lymph % (Auto) 6 L (24-44) % [place] % (Auto) 12 H (2-6) % Eos % (Auto) 1 L (2-4) % Baso % (Auto) 0 (0-1) % Sodium 136 L (140-148) mmol/L Potassium 3.2 L 3.1 L (3.6-5.2) mmol/L Chloride 104 (100-108) mmol/L Carbon Dioxide 19 L (21-32) mmol/L Anion Gap 16.1 H (5.0-14.0) mmol/L BUN 14 (7-18) mg/dL Creatinine 1.0 (0.8-1.3) mg/dL Est Cr Clr Drug Dosing 89.63 mL/min Estimated GFR (MDRD) > 60 (>60) Glucose 94 (74-106) mg/dL Calcium 7.1 L (8.5-10.1) mg/dL Magnesium 2.2 (1.8-2.4) mg/dL Total Bilirubin 19.6 H (0.2-1.0) mg/dL AST 129 H (15-37) U/L ALT 41 (12-78) U/L Alkaline Phosphatase 214 H (46-116) U/L Total Protein 5.7 L (6.4-8.2) g/dL Albumin 1.5 L (3.4-5.0) g/dL Globulin 4.2 H (2.3-3.5) g/dL Albumin/Globulin Ratio 0.4 L (1.2-2.2) Med Orders - Current: Current Medications Al Hydroxide/Mg Hydroxide (Mag-Al Plus) 30 ml PO Q2H PRN PRN Reason: Epigastric pain Baclofen (Lioresal) 10 mg PO BEDTIME [facility] Last Admin: 10/31/18 22:24 Dose: 10 mg Piperacillin/Tazobactam/ (Dextrose 3.375 gm/ Premix) 50 mls @ 100 mls/hr IV Q6H [facility] Last Admin: 11/01/18 11:23 Dose: 100 mls/hr Ibuprofen (Motrin) 600 mg PO Q6H PRN PRN Reason: Fever Last Admin: 10/31/18 19:32 Dose: 600 mg Melatonin (Melatonin) 9 mg PO BEDTIME [facility] Last Admin: 10/31/18 22:24 Dose: 9 mg Ondansetron HCl (Zofran) 4 mg IV Q4H PRN PRN Reason: Nausea/Vomiting Oxycodone HCl (Oxycodone) 5 mg PO Q4H PRN PRN Reason: Pain (moderate 4-6) Phytonadione (Aquamephyton) 5 mg PO DAILY [facility] Potassium Chloride (Klor-Con M20) 40 meq PO ONETIME ONE Stop: 11/01/18 15:01 Potassium Chloride (Klor-Con M20) 40 meq PO ONETIME ONE Stop: 11/01/18 21:01 Senna/Docusate Sodium (Senna Plus) 1 tab PO BID PRN PRN Reason: Constipation Sodium Chloride (Saline Flush) 10 ml FLUSH ASDIRECTED PRN PRN Reason: Keep Vein Open Discontinued Medications Bisacodyl (Dulcolax) 10 mg RECTAL ONETIME ONE Stop: 10/30/18 15:03 Last Admin: 10/30/18 16:49 Dose: 10 mg Bisacodyl (Dulcolax) Confirm Administered Dose 10 mg .ROUTE .STK-MED ONE Stop: 10/30/18 16:54 Last Admin: 10/30/18 17:45 Dose: 10 mg Sodium Chloride (Normal Saline) 1,000 mls @ 500 mls/hr IV ASDIRECTED [facility] Last Admin: 10/30/18 13:44 Dose: 500 mls/hr Sodium Chloride (Normal Saline) 100 mls @ 3 mls/sec IV ONETIME ONE Stop: 10/30/18 14:33 Last Admin: 10/30/18 16:44 Dose: 3 mls/sec Sodium Chloride (Normal Saline) 79 mls @ 3 mls/sec IV ONETIME ONE Stop: 10/30/18 15:06 Last Admin: 10/30/18 15:09 Dose: 3 mls/sec Piperacillin/Tazobactam/ (Dextrose 3.375 gm/ Premix) 50 mls @ 100 mls/hr IV Q6H [facility] Last Admin: 10/31/18 05:38 Dose: 100 mls/hr Sodium Chloride (Normal Saline) 1,000 mls @ 125 mls/hr IV ASDIRECTED [facility] Last Admin: 10/31/18 11:23 Dose: 125 mls/hr Potassium Chloride 20 meq/ (Lidocaine HCl 2 ml/ Premix) 102 mls @ 51 mls/hr IV ONETIME ONE Stop: 10/31/18 07:59 Last Admin: 10/31/18 05:59 Dose: 51 mls/hr Potassium Chloride (Kcl 20 Meq In Water 100 Ml) Confirm Administered Dose 100 mls @ as directed .ROUTE .STK-MED ONE Stop: 10/31/18 05:55 Last Admin: 10/31/18 10:39 Dose: Not Given Influenza Virus Vaccine (Pharmacy To Dose - Influenza Vaccine) 1 each IM ONETIME ONE Stop: 10/31/18 14:01 Last Admin: 10/31/18 15:14 Dose: Not Given Influenza Virus Vaccine (Fluzone Quad [id number] Syringe) 60 mcg IM .ONCE ONE Stop: 11/01/18 10:01 Last Admin: 11/01/18 11:21 Dose: 60 mcg Iopamidol (Isovue-300 (61%)) 150 ml IV . DIRECTED [facility] Last Admin: 10/30/18 15:09 Dose: 128 ml Iopamidol (Isovue-300 (61%)) 128 ml IV . DIRECTED [facility] Potassium Chloride (Klor-Con M20) 20 meq PO ONETIME ONE Stop: 10/31/18 05:39 Last Admin: 10/31/18 10:39 Dose: Not Given Potassium Chloride (Klor-Con M20) 40 meq PO ONETIME ONE Stop: 10/31/18 09:01 Last Admin: 10/31/18 11:22 Dose: 40 meq Potassium Chloride (Klor-Con M20) 40 meq PO ONETIME ONE Stop: 10/31/18 14:31 Last Admin: 10/31/18 15:30 Dose: 40 meq Potassium Chloride (Klor-Con M20) 40 meq PO ONETIME ONE Stop: 11/01/18 09:01 Sodium Chloride (Saline Flush) 10 ml FLUSH ONETIME PRN PRN Reason: PER RADIOLOGY PROTOCOL Last Admin: 10/30/18 15:09 Dose: 10 ml - Exam Quality Assessment: DVT Prophylaxis General: Alert, Oriented, Cooperative, No Acute Distress Lungs: Clear to Auscultation, Normal Respiratory Effort Cardiovascular: Regular Rate, Regular Rhythm, No Murmurs GI/Abdominal Exam: Soft, Non-Tender, No Organomegaly, No Distention Extremities: Non-Tender, No Pedal Edema - Problem List Review Problem List Initiated/Reviewed/Updated: Yes - My Orders Last 24 Hours: My Active Orders 10/31/18 14:00 Convert IV to Saline Lock [OM.PC] Routine 11/01/18 14:46 Potassium Chloride [Klor-Con M20] 40 meq PO ONETIME ONE 11/01/18 15:00 Phytonadione [AquaMephyton] 5 mg PO DAILY 11/01/18 17:00 HGB [HEMOGLOBIN] [HEME] Stat POTASSIUM,K [CHEM] Stat 11/01/18 21:00 Potassium Chloride [Klor-Con M20] 40 meq PO ONETIME ONE 11/01/18 Dinner Low Fat Diet [DIET] 11/02/18 05:00 CBC WITH AUTO DIFF [HEME] Timed COMPREHENSIVE METABOLIC PN,CMP [CHEM] Timed INR,PT,PROTHROMBIN TIME [COAG] Timed MAGNESIUM [CHEM] Timed - Plan Plan:: ASSESSMENT AND PLAN HEPATIC CIRRHOSIS- with elevation in bilirubin and INR, history of chronic alcohol use. Will require further evaluation for other underlying liver disease. CT scan shows evidence of cirrhosis, spider angiomas noted upper chest and back. Bilirubin modestly improved over the last 24 hours. MRCP shows no evidence of ductal obstruction, but does show evidence of acute cholecystitis -Stop all alcohol use -Saline lock IV -Consider upper GI endoscopy when stable -Medication for pain and nausea as needed -Further laboratory evaluation including; serology for viral hepatitis, alpha-1 antitrypsin, JAQUELINE, anti-smooth muscle antibody, antimitochondrial antibody, ceruloplasmin -Outpatient referral to gastroenterology ACUTE CHOLECYSTITIS-evidence of gallbladder infection noted on MRCP as well as ultrasound. White blood cell count remains elevated but he is symptomatically improved since admission. -Continue current IV antibiotic therapy with Zosyn -He'll need cholecystectomy, will try and defer this until his liver situation has improved and stabilized LOWER GI BLEED-by description seems to be fairly mild, complicated by elevated INR -Serial hemoglobin levels -Colonoscopy, try to defer until stable, if bleeding increases we'll need to do emergently CHRONIC ALCOHOL DEPENDENCE -Alcohol cessation -Outpatient alcohol treatment MAINTENANCE ISSUES -DVT prophylaxis; INR elevated at greater than 2 -GI prophylaxis; not indicated -Oneal catheter; not indicated -Nutrition; regular diet -Nicotine dependence; not required CODE STATUS-FULL CODE ADMISSION STATUS-patient will be admitted to inpatient status, expect at least a 2 night hospital stay for evaluation and management of problems as outlined above. At the time of this admission I do not reasonably expected evaluation and management of this problem will require more than a 96 hour hospital stay. DISPOSITION-anticipate discharge to home after the hospital stay. PRIMARY CARE PROVIDER-Landon Koenig
[2018-11-01] MEDS: Phytonadione ORAL 5mg/5ml Soln Simple Syrup U/D PO SCH (15:36)
[2018-11-01] MEDS: oxyCODONE 5 MG Tab PO PRN (19:15)
--- NOTE | 2018-11-01 20:22 | PCM.SN ---
- Free Text/Narrative Note: Time 17:30 call from [address] [place] [address], concerns of increased shortness of breath , increased abdominal distension, decreased urine output.
[2018-11-01] MEDS ORDERED: Sodium Chloride 0.9% 1,000 ML IV SCH (20:30)
[2018-11-01] MEDS: Baclofen 10 MG Tab PO SCH (22:02)
[2018-11-01] MEDS: Melatonin 3 MG Tab PO SCH (22:02)
[2018-11-01] MEDS: Sodium Chloride 0.9% 1,000 ML IV SCH (22:57)
[2018-11-02] MEDS: Piperacillin/Tazobactam/Dext 3.375 GM in Premix Bag 1 BAG IV SCH ×4 (00:16→17:59)
[2018-11-02] MEDS: Sodium Chloride 0.9% 1,000 ML IV SCH ×3 (05:52→19:47)
[2018-11-02 08:13] LABS: HBSAG SCREEN Negative (Negative); HEP A AB, IGM Negative (Negative); HEP B CORE AB, IGM Negative (Negative); HEP C VIRUS AB <0.1 s/co ratio (0.0-0.9)
[2018-11-02] MEDS ORDERED: Potassium Chloride 20 MEQ Tab.ER PO ONE ×2 (09:00→13:00)
[2018-11-02] MEDS: Phytonadione ORAL 5mg/5ml Soln Simple Syrup U/D PO SCH (09:20)
--- NOTE | 2018-11-02 09:54 | PCM.PN ---
- General Info Date of Service: 11/02/18 Subjective Update: Mr. Mckee has not felt as well over the last 24 hours, experienced dyspnea last night but that has resolved. Chest x-ray showed no obvious infiltrates or fluid. He has had ongoing difficulty with hematochezia and this morning had one stool that appeared to be black and tarry. Hemoglobin has remained fairly stable. White count remains elevated and he is now developed some abdominal distention and right lower quadrant abdominal pain. Functional Status: Reports: Tolerating Diet, Ambulating, Urinating - Review of Systems General: Reports: Weakness. Denies: Fever, Chills Pulmonary: Reports: No Symptoms Cardiovascular: Reports: No Symptoms Gastrointestinal: Reports: Abdominal Pain, Diarrhea, Hematochezia, Melena. Denies: Constipation, Difficulty Swallowing, Nausea, Vomiting Skin: Reports: Jaundice - Patient Data Vitals - Most Recent: Last Vital Signs Temp 99.9 F 11/02/18 07:45 Pulse 89 11/02/18 07:45 Resp 16 11/02/18 07:45 BP 119/72 11/02/18 07:45 Pulse Ox 97 11/02/18 07:45 Weight - Most Recent: 194 lb I&O - Last 24 Hours: Intake & Output 11/01/18 11/02/18 11/02/18 22:59 06:59 14:59 Intake Total 2090 1545 240 Output Total 50 325 Balance 2040 1220 240 Lab Results Last 24 Hours: Laboratory Results - last 24 hr 10/30/18 11/01/18 11/01/18 Range/Units 04:50 18:50 18:50 WBC (4.5-11.0) K/uL RBC (4.30-5.90) M/uL Hgb 12.2 (12.0-15.0) g/dL Hct (40.0-54.0) % MCV (80-98) fL MCH (27-31) pg MCHC (32-36) % Plt Count (150-400) K/uL Neut % (Auto) (36-66) % Lymph % (Auto) (24-44) % Jerome % (Auto) (2-6) % Eos % (Auto) (2-4) % Baso % (Auto) (0-1) % PT (9.5-12.0) sec INR (0.80-1.20) Sodium (140-148) mmol/L Potassium 3.7 (3.6-5.2) mmol/L Chloride (100-108) mmol/L Carbon Dioxide (21-32) mmol/L Anion Gap (5.0-14.0) mmol/L BUN (7-18) mg/dL Creatinine (0.8-1.3) mg/dL Est Cr Clr Drug Dosing mL/min Estimated GFR (MDRD) (>60) Glucose (74-106) mg/dL Calcium (8.5-10.1) mg/dL Magnesium (1.8-2.4) mg/dL Total Bilirubin (0.2-1.0) mg/dL AST (15-37) U/L ALT (12-78) U/L Alkaline Phosphatase (46-116) U/L Total Protein (6.4-8.2) g/dL Albumin (3.4-5.0) g/dL Globulin (2.3-3.5) g/dL Albumin/Globulin Ratio (1.2-2.2) Hepatitis A IgM Ab Negative (Negative) Hep Bs Antigen Negative (Negative) Hep B Core IgM Ab Negative (Negative) Hepatitis C Antibody <0.1 (0.0-0.9) s/co ratio 11/02/18 11/02/18 11/02/18 Range/Units 04:00 04:00 04:00 WBC 18.4 H (4.5-11.0) K/uL RBC 3.84 L (4.30-5.90) M/uL Hgb 13.0 (12.0-15.0) g/dL Hct 37.4 L (40.0-54.0) % MCV 97 (80-98) fL MCH 34 H (27-31) pg MCHC 35 (32-36) % Plt Count 334 (150-400) K/uL Neut % (Auto) 79 H (36-66) % Lymph % (Auto) 7 L (24-44) % Jerome % (Auto) 12 H (2-6) % Eos % (Auto) 1 L (2-4) % Baso % (Auto) 1 (0-1) % PT 16.8 H (9.5-12.0) sec INR 1.57 H (0.80-1.20) Sodium 136 L (140-148) mmol/L Potassium 3.6 (3.6-5.2) mmol/L Chloride 103 (100-108) mmol/L Carbon Dioxide 23 (21-32) mmol/L Anion Gap 13.6 (5.0-14.0) mmol/L BUN 13 (7-18) mg/dL Creatinine 1.0 (0.8-1.3) mg/dL Est Cr Clr Drug Dosing 89.63 mL/min Estimated GFR (MDRD) > 60 (>60) Glucose 87 (74-106) mg/dL Calcium 7.2 L (8.5-10.1) mg/dL Magnesium 2.1 (1.8-2.4) mg/dL Total Bilirubin 20.6 H (0.2-1.0) mg/dL AST 154 H (15-37) U/L ALT 48 (12-78) U/L Alkaline Phosphatase 218 H (46-116) U/L Total Protein 6.2 L (6.4-8.2) g/dL Albumin 1.6 L (3.4-5.0) g/dL Globulin 4.6 H (2.3-3.5) g/dL Albumin/Globulin Ratio 0.4 L (1.2-2.2) Hepatitis A IgM Ab (Negative) Hep Bs Antigen (Negative) Hep B Core IgM Ab (Negative) Hepatitis C Antibody (0.0-0.9) s/co ratio Med Orders - Current: Current Medications Al Hydroxide/Mg Hydroxide (Mag-Al Plus) 30 ml PO Q2H PRN PRN Reason: Epigastric pain Baclofen (Lioresal) 10 mg PO BEDTIME [facility] Last Admin: 11/01/18 22:02 Dose: 10 mg Bisacodyl (Dulcolax) 10 mg PO ONETIME ONE Stop: 11/02/18 09:48 Bisacodyl (Dulcolax) 10 mg PO ONETIME ONE Stop: 11/02/18 20:01 Piperacillin/Tazobactam/ (Dextrose 3.375 gm/ Premix) 50 mls @ 100 mls/hr IV Q6H [facility] Last Admin: 11/02/18 05:50 Dose: 100 mls/hr Sodium Chloride (Normal Saline) 1,000 mls @ 125 mls/hr IV ASDIRECTED [facility] Last Admin: 11/02/18 05:52 Dose: 125 mls/hr Ibuprofen (Motrin) 600 mg PO Q6H PRN PRN Reason: Fever Last Admin: 10/31/18 19:32 Dose: 600 mg Melatonin (Melatonin) 9 mg PO BEDTIME [facility] Last Admin: 11/01/18 22:02 Dose: 9 mg Ondansetron HCl (Zofran) 4 mg IV Q4H PRN PRN Reason: Nausea/Vomiting Oxycodone HCl (Oxycodone) 5 mg PO Q4H PRN PRN Reason: Pain (moderate 4-6) Last Admin: 11/01/18 19:15 Dose: 5 mg Phytonadione (Aquamephyton) 5 mg PO DAILY [facility] Last Admin: 11/02/18 09:20 Dose: 5 mg Polyethylene Glycol (Miralax) 238 gm PO ONETIME ONE Stop: 11/02/18 17:01 Potassium Chloride (Klor-Con M20) 40 meq PO ONETIME ONE Stop: 11/02/18 13:01 Senna/Docusate Sodium (Senna Plus) 1 tab PO BID PRN PRN Reason: Constipation Sodium Chloride (Saline Flush) 10 ml FLUSH ASDIRECTED PRN PRN Reason: Keep Vein Open Discontinued Medications Bisacodyl (Dulcolax) 10 mg RECTAL ONETIME ONE Stop: 10/30/18 15:03 Last Admin: 10/30/18 16:49 Dose: 10 mg Bisacodyl (Dulcolax) Confirm Administered Dose 10 mg .ROUTE .STK-MED ONE Stop: 10/30/18 16:54 Last Admin: 10/30/18 17:45 Dose: 10 mg Sodium Chloride (Normal Saline) 1,000 mls @ 500 mls/hr IV ASDIRECTED [facility] Last Admin: 10/30/18 13:44 Dose: 500 mls/hr Sodium Chloride (Normal Saline) 100 mls @ 3 mls/sec IV ONETIME ONE Stop: 10/30/18 14:33 Last Admin: 10/30/18 16:44 Dose: 3 mls/sec Sodium Chloride (Normal Saline) 79 mls @ 3 mls/sec IV ONETIME ONE Stop: 10/30/18 15:06 Last Admin: 10/30/18 15:09 Dose: 3 mls/sec Piperacillin/Tazobactam/ (Dextrose 3.375 gm/ Premix) 50 mls @ 100 mls/hr IV Q6H [facility] Last Admin: 10/31/18 05:38 Dose: 100 mls/hr Sodium Chloride (Normal Saline) 1,000 mls @ 125 mls/hr IV ASDIRECTED [facility] Last Admin: 10/31/18 11:23 Dose: 125 mls/hr Potassium Chloride 20 meq/ (Lidocaine HCl 2 ml/ Premix) 102 mls @ 51 mls/hr IV ONETIME ONE Stop: 10/31/18 07:59 Last Admin: 10/31/18 05:59 Dose: 51 mls/hr Potassium Chloride (Kcl 20 Meq In Water 100 Ml) Confirm Administered Dose 100 mls @ as directed .ROUTE .STK-MED ONE Stop: 10/31/18 05:55 Last Admin: 10/31/18 10:39 Dose: Not Given Sodium Chloride (Normal Saline) 1,000 mls @ 500 mls/hr IV ASDIRECTED [facility] Last Admin: 11/01/18 20:50 Dose: 500 mls/hr Influenza Virus Vaccine (Pharmacy To Dose - Influenza Vaccine) 1 each IM ONETIME ONE Stop: 10/31/18 14:01 Last Admin: 10/31/18 15:14 Dose: Not Given Influenza Virus Vaccine (Fluzone Quad 6210-7467 Syringe) 60 mcg IM .ONCE ONE Stop: 11/01/18 10:01 Last Admin: 11/01/18 11:21 Dose: 60 mcg Iopamidol (Isovue-300 (61%)) 150 ml IV . DIRECTED [facility] Last Admin: 10/30/18 15:09 Dose: 128 ml Iopamidol (Isovue-300 (61%)) 128 ml IV . DIRECTED [facility] Potassium Chloride (Klor-Con M20) 20 meq PO ONETIME ONE Stop: 10/31/18 05:39 Last Admin: 10/31/18 10:39 Dose: Not Given Potassium Chloride (Klor-Con M20) 40 meq PO ONETIME ONE Stop: 10/31/18 09:01 Last Admin: 10/31/18 11:22 Dose: 40 meq Potassium Chloride (Klor-Con M20) 40 meq PO ONETIME ONE Stop: 10/31/18 14:31 Last Admin: 10/31/18 15:30 Dose: 40 meq Potassium Chloride (Klor-Con M20) 40 meq PO ONETIME ONE Stop: 11/01/18 09:01 Last Admin: 11/01/18 15:31 Dose: 40 meq Potassium Chloride (Klor-Con M20) 40 meq PO ONETIME ONE Stop: 11/01/18 15:01 Last Admin: 11/01/18 15:51 Dose: 40 meq Potassium Chloride (Klor-Con M20) 40 meq PO ONETIME ONE Stop: 11/01/18 21:01 Last Admin: 11/01/18 22:02 Dose: 40 meq Potassium Chloride (Klor-Con M20) 40 meq PO ONETIME ONE Stop: 11/02/18 09:01 Last Admin: 11/02/18 09:08 Dose: 40 meq Sodium Chloride (Saline Flush) 10 ml FLUSH ONETIME PRN PRN Reason: PER RADIOLOGY PROTOCOL Last Admin: 10/30/18 15:09 Dose: 10 ml - Exam Quality Assessment: DVT Prophylaxis General: Alert, Oriented, Cooperative, Mild Distress Lungs: Clear to Auscultation, Normal Respiratory Effort Cardiovascular: Regular Rate, Regular Rhythm, No Murmurs GI/Abdominal Exam: Soft, No Organomegaly, Distended, Tender. No: Guarding, Rigid, Rebound Extremities: Non-Tender, No Pedal Edema - Problem List Review Problem List Initiated/Reviewed/Updated: Yes - My Orders Last 24 Hours: My Active Orders 11/01/18 15:00 Phytonadione [AquaMephyton] 5 mg PO DAILY 11/01/18 Dinner Low Fat Diet [DIET] 11/02/18 09:44 Abdomen Pelvis w Cont [CT] Routine 11/02/18 09:46 Consult to Physician [CONS] Routine 11/02/18 09:47 Notify Provider Consults [RC] ASDIRECTED Verify Patient Consent Obtain [RC] ASDIRECTED Bisacodyl [Dulcolax] 10 mg PO ONETIME ONE Schedule Procedure [COMM] Routine 11/02/18 13:00 Potassium Chloride [Klor-Con M20] 40 meq PO ONETIME ONE 11/02/18 17:00 Polyethylene Glycol 3350 [MiraLAX] 238 gm PO ONETIME ONE 11/02/18 20:00 Bisacodyl [Dulcolax] 10 mg PO ONETIME ONE 11/03/18 05:00 CBC WITH AUTO DIFF [HEME] Timed COMPREHENSIVE METABOLIC PN,CMP [CHEM] Timed INR,PT,PROTHROMBIN TIME [COAG] Timed MAGNESIUM [CHEM] Timed 11/03/18 Breakfast Nothing per Oral After Midnight Diet [DIET] - Plan Plan:: ASSESSMENT AND PLAN HEPATIC CIRRHOSIS- with elevation in bilirubin and INR, history of chronic alcohol use. Will require further evaluation for other underlying liver disease. CT scan shows evidence of cirrhosis, spider angiomas noted upper chest and back. Bilirubin up slightly today, INR improved. He has noted increased abdominal distention associated with right lower quadrant abdominal pain -CT scan of the abdomen and pelvis with IV and oral contrast -Stop all alcohol use -Saline lock IV -Medication for pain and nausea as needed -Further laboratory evaluation including; serology for viral hepatitis, alpha-1 antitrypsin, JAQUELINE, anti-smooth muscle antibody, antimitochondrial antibody, ceruloplasmin -Outpatient referral to gastroenterology ACUTE CHOLECYSTITIS-evidence of gallbladder infection noted on MRCP as well as ultrasound. White blood cell count remains elevated but he is symptomatically improved since admission. -Continue current IV antibiotic therapy with Zosyn -He'll need cholecystectomy, will try and defer this until his liver situation has improved and stabilized HEMATOCHEZIA AND MELENA-black tarry stool noted this morning with intermittent episodes of red blood per rectum -Serial hemoglobin levels -Consult Dr. Lowery for EGD and colonoscopy CHRONIC ALCOHOL DEPENDENCE -Alcohol cessation -Outpatient alcohol treatment MAINTENANCE ISSUES -DVT prophylaxis; INR elevated at greater than 2 -GI prophylaxis; not indicated -Oneal catheter; not indicated -Nutrition; regular diet -Nicotine dependence; not required CODE STATUS-FULL CODE ADMISSION STATUS-patient will be admitted to inpatient status, expect at least a 2 night hospital stay for evaluation and management of problems as outlined above. At the time of this admission I do not reasonably expected evaluation and management of this problem will require more than a 96 hour hospital stay. DISPOSITION-anticipate discharge to home after the hospital stay. PRIMARY CARE PROVIDER-Landon Koenig
[2018-11-02] MEDS ORDERED: Bisacodyl 5 MG Tab PO ONE ×2 (10:30→20:00)
[2018-11-02] MEDS: Iohexol 300 MG/ML 30 ML Bottle PO SCH ×2 (10:37→12:18)
[2018-11-02] MEDS: oxyCODONE 5 MG Tab PO PRN ×3 (11:13→23:12)
[2018-11-02] MEDS ORDERED: Sodium Chloride 0.9% 100 ML IV ONE (12:04)
[2018-11-02] MEDS ORDERED: Sodium Chloride 0.9% 10 ML Syringe FLUSH ONE (12:04)
[2018-11-02] MEDS ORDERED: Iopamidol 612 MG/ML 100 ML Bottle IV SCH (12:15)
[2018-11-02] MEDS ORDERED: Polyethylene Glycol 3350 Powder 238 GM Bot PO ONE (17:00)
[2018-11-02] MEDS: Ibuprofen 600 MG Tab PO PRN (17:13)
[2018-11-02] MEDS: Melatonin 3 MG Tab PO SCH (23:07)
[2018-11-02] MEDS: Baclofen 10 MG Tab PO SCH (23:07)
[2018-11-03] MEDS: Piperacillin/Tazobactam/Dext 3.375 GM in Premix Bag 1 BAG IV SCH ×5 (00:45→23:39)
[2018-11-03] MEDS ORDERED: Midazolam 1 MG/ML 2 ML SDV ONE (07:45)
[2018-11-03] MEDS ORDERED: Propofol 200 MG/20 ML SDV ONE ×2 (07:45→07:55)
[2018-11-03] MEDS ORDERED: fentaNYL 100 MCG/2 ML SDV ONE (07:45)
[2018-11-03] MEDS: Phytonadione ORAL 5mg/5ml Soln Simple Syrup U/D PO SCH (09:26)
--- NOTE | 2018-11-03 11:34 | PCM.PN ---
- General Info Date of Service: 11/03/18 Subjective Update: Mr. Mehta has been stable since yesterday, no further red blood or melenic- appearing stools. EGD was performed this morning by Dr. Lowery that did show evidence of 1 esophageal varicie as well as gastritis and duodenitis. Continues to feel abdominal distention likely related to progressive ascites. Bilirubin levels stable from yesterday, INR improved from admission at 1.57. Functional Status: Reports: Pain Controlled, Tolerating Diet, Urinating - Review of Systems General: Reports: Weakness. Denies: Fever, Chills Pulmonary: Reports: No Symptoms Cardiovascular: Reports: No Symptoms Gastrointestinal: Reports: Abdominal Pain (Distention). Denies: Difficulty Swallowing, Hematochezia, Melena, Nausea, Vomiting - Patient Data Vitals - Most Recent: Last Vital Signs Temp 97.9 F 11/03/18 11:05 Pulse 86 11/03/18 11:05 Resp 16 11/03/18 11:05 BP 110/75 11/03/18 11:05 Pulse Ox 97 11/03/18 11:05 Weight - Most Recent: 204 lb 6.4 oz I&O - Last 24 Hours: Intake & Output 11/02/18 11/03/18 11/03/18 22:59 06:59 14:59 Intake Total 1058 50 150 Output Total 100 Balance 958 50 150 Lab Results Last 24 Hours: Laboratory Results - last 24 hr 10/30/18 10/30/18 11/02/18 Range/Units 04:50 17:00 17:00 WBC (4.5-11.0) K/uL RBC (4.30-5.90) M/uL Hgb 13.2 (12.0-15.0) g/dL Hct (40.0-54.0) % MCV (80-98) fL MCH (27-31) pg MCHC (32-36) % Plt Count (150-400) K/uL Neut % (Auto) (36-66) % Lymph % (Auto) (24-44) % [place] % (Auto) (2-6) % Eos % (Auto) (2-4) % Baso % (Auto) (0-1) % PT (9.5-12.0) sec INR (0.80-1.20) Sodium (140-148) mmol/L Potassium (3.6-5.2) mmol/L Chloride (100-108) mmol/L Carbon Dioxide (21-32) mmol/L Anion Gap (5.0-14.0) mmol/L BUN (7-18) mg/dL Creatinine (0.8-1.3) mg/dL Est Cr Clr Drug Dosing mL/min Estimated GFR (MDRD) (>60) Glucose (74-106) mg/dL Lactic Acid (0.4-2.0) mmol/L Calcium (8.5-10.1) mg/dL Magnesium (1.8-2.4) mg/dL Total Bilirubin (0.2-1.0) mg/dL AST (15-37) U/L ALT (12-78) U/L Alkaline Phosphatase (46-116) U/L Total Protein (6.4-8.2) g/dL Albumin (3.4-5.0) g/dL Globulin (2.3-3.5) g/dL Albumin/Globulin Ratio (1.2-2.2) Anti-Mitochondrial Ab 13.4 (0.0-20.0) Units Anti-Smooth Muscle Ab 26 H (0-19) Units 11/03/18 11/03/18 11/03/18 Range/Units 05:30 05:30 05:30 WBC 16.7 H (4.5-11.0) K/uL RBC 3.68 L (4.30-5.90) M/uL Hgb 12.6 (12.0-15.0) g/dL Hct 36.0 L (40.0-54.0) % MCV 98 (80-98) fL MCH 34 H (27-31) pg MCHC 35 (32-36) % Plt Count 333 (150-400) K/uL Neut % (Auto) 82 H (36-66) % Lymph % (Auto) 6 L (24-44) % [place] % (Auto) 10 H (2-6) % Eos % (Auto) 2 (2-4) % Baso % (Auto) 1 (0-1) % PT 16.7 H (9.5-12.0) sec INR 1.56 H (0.80-1.20) Sodium 133 L (140-148) mmol/L Potassium 3.9 (3.6-5.2) mmol/L Chloride 105 (100-108) mmol/L Carbon Dioxide 19 L (21-32) mmol/L Anion Gap 12.9 (5.0-14.0) mmol/L BUN 13 (7-18) mg/dL Creatinine 0.9 (0.8-1.3) mg/dL Est Cr Clr Drug Dosing 99.22 mL/min Estimated GFR (MDRD) > 60 (>60) Glucose 88 (74-106) mg/dL Lactic Acid (0.4-2.0) mmol/L Calcium 7.5 L (8.5-10.1) mg/dL Magnesium 2.1 (1.8-2.4) mg/dL Total Bilirubin 20.2 H (0.2-1.0) mg/dL AST 138 H (15-37) U/L ALT 45 (12-78) U/L Alkaline Phosphatase 212 H (46-116) U/L Total Protein 5.7 L (6.4-8.2) g/dL Albumin 1.3 L (3.4-5.0) g/dL Globulin 4.4 H (2.3-3.5) g/dL Albumin/Globulin Ratio 0.3 L (1.2-2.2) Anti-Mitochondrial Ab (0.0-20.0) Units Anti-Smooth Muscle Ab (0-19) Units 11/03/18 Range/Units 08:42 WBC (4.5-11.0) K/uL RBC (4.30-5.90) M/uL Hgb (12.0-15.0) g/dL Hct (40.0-54.0) % MCV (80-98) fL MCH (27-31) pg MCHC (32-36) % Plt Count (150-400) K/uL Neut % (Auto) (36-66) % Lymph % (Auto) (24-44) % [place] % (Auto) (2-6) % Eos % (Auto) (2-4) % Baso % (Auto) (0-1) % PT (9.5-12.0) sec INR (0.80-1.20) Sodium (140-148) mmol/L Potassium (3.6-5.2) mmol/L Chloride (100-108) mmol/L Carbon Dioxide (21-32) mmol/L Anion Gap (5.0-14.0) mmol/L BUN (7-18) mg/dL Creatinine (0.8-1.3) mg/dL Est Cr Clr Drug Dosing mL/min Estimated GFR (MDRD) (>60) Glucose (74-106) mg/dL Lactic Acid 1.5 (0.4-2.0) mmol/L Calcium (8.5-10.1) mg/dL Magnesium (1.8-2.4) mg/dL Total Bilirubin (0.2-1.0) mg/dL AST (15-37) U/L ALT (12-78) U/L Alkaline Phosphatase (46-116) U/L Total Protein (6.4-8.2) g/dL Albumin (3.4-5.0) g/dL Globulin (2.3-3.5) g/dL Albumin/Globulin Ratio (1.2-2.2) Anti-Mitochondrial Ab (0.0-20.0) Units Anti-Smooth Muscle Ab (0-19) Units Med Orders - Current: Current Medications Al Hydroxide/Mg Hydroxide (Mag-Al Plus) 30 ml PO Q2H PRN PRN Reason: Epigastric pain Baclofen (Lioresal) 10 mg PO BEDTIME [facility] Last Admin: 11/02/18 23:07 Dose: 10 mg Furosemide (Lasix) 20 mg IVPUSH NOW ONE Stop: 11/03/18 11:23 Piperacillin/Tazobactam/ (Dextrose 3.375 gm/ Premix) 50 mls @ 100 mls/hr IV Q6H [facility] Last Admin: 11/03/18 06:14 Dose: 100 mls/hr Ibuprofen (Motrin) 600 mg PO Q6H PRN PRN Reason: Fever Last Admin: 11/02/18 17:13 Dose: 600 mg Melatonin (Melatonin) 9 mg PO BEDTIME [facility] Last Admin: 11/02/18 23:07 Dose: 9 mg Ondansetron HCl (Zofran) 4 mg IV Q4H PRN PRN Reason: Nausea/Vomiting Oxycodone HCl (Oxycodone) 5 mg PO Q4H PRN PRN Reason: Pain (moderate 4-6) Last Admin: 11/02/18 23:12 Dose: 5 mg Pantoprazole Sodium (Protonix Iv) 40 mg IVPUSH Q12H [facility] Phytonadione (Aquamephyton) 5 mg PO DAILY [facility] Last Admin: 11/03/18 09:26 Dose: 5 mg Senna/Docusate Sodium (Senna Plus) 1 tab PO BID PRN PRN Reason: Constipation Sodium Chloride (Saline Flush) 10 ml FLUSH ASDIRECTED PRN PRN Reason: Keep Vein Open Spironolactone (Aldactone) 25 mg PO BID [facility] Discontinued Medications Bisacodyl (Dulcolax) 10 mg RECTAL ONETIME ONE Stop: 10/30/18 15:03 Last Admin: 10/30/18 16:49 Dose: 10 mg Bisacodyl (Dulcolax) Confirm Administered Dose 10 mg .ROUTE .STK-MED ONE Stop: 10/30/18 16:54 Last Admin: 10/30/18 17:45 Dose: 10 mg Bisacodyl (Dulcolax) 10 mg PO ONETIME ONE Stop: 11/02/18 10:31 Last Admin: 11/02/18 10:38 Dose: 10 mg Bisacodyl (Dulcolax) 10 mg PO ONETIME ONE Stop: 11/02/18 20:01 Last Admin: 11/02/18 19:47 Dose: 10 mg Fentanyl (Sublimaze) Confirm Administered Dose 100 mcg .ROUTE .STK-MED ONE Stop: 11/03/18 07:46 Sodium Chloride (Normal Saline) 1,000 mls @ 500 mls/hr IV ASDIRECTED [facility] Last Admin: 10/30/18 13:44 Dose: 500 mls/hr Sodium Chloride (Normal Saline) 100 mls @ 3 mls/sec IV ONETIME ONE Stop: 10/30/18 14:33 Last Admin: 10/30/18 16:44 Dose: 3 mls/sec Sodium Chloride (Normal Saline) 79 mls @ 3 mls/sec IV ONETIME ONE Stop: 10/30/18 15:06 Last Admin: 10/30/18 15:09 Dose: 3 mls/sec Piperacillin/Tazobactam/ (Dextrose 3.375 gm/ Premix) 50 mls @ 100 mls/hr IV Q6H [facility] Last Admin: 10/31/18 05:38 Dose: 100 mls/hr Sodium Chloride (Normal Saline) 1,000 mls @ 125 mls/hr IV ASDIRECTED [facility] Last Admin: 10/31/18 11:23 Dose: 125 mls/hr Potassium Chloride 20 meq/ (Lidocaine HCl 2 ml/ Premix) 102 mls @ 51 mls/hr IV ONETIME ONE Stop: 10/31/18 07:59 Last Admin: 10/31/18 05:59 Dose: 51 mls/hr Potassium Chloride (Kcl 20 Meq In Water 100 Ml) Confirm Administered Dose 100 mls @ as directed .ROUTE .STK-MED ONE Stop: 10/31/18 05:55 Last Admin: 10/31/18 10:39 Dose: Not Given Sodium Chloride (Normal Saline) 1,000 mls @ 500 mls/hr IV ASDIRECTED [facility] Last Admin: 11/01/18 20:50 Dose: 500 mls/hr Sodium Chloride (Normal Saline) 1,000 mls @ 125 mls/hr IV ASDIRECTED [facility] Last Admin: 11/02/18 05:52 Dose: 125 mls/hr Sodium Chloride (Normal Saline) 1,000 mls @ 50 mls/hr IV ASDIRECTED [facility] Last Admin: 11/02/18 19:47 Dose: 50 mls/hr Sodium Chloride (Normal Saline) 100 mls @ 3.5 mls/sec IV ONETIME ONE Stop: 11/02/18 12:05 Last Admin: 11/02/18 12:17 Dose: 3 mls/sec Influenza Virus Vaccine (Pharmacy To Dose - Influenza Vaccine) 1 each IM ONETIME ONE Stop: 10/31/18 14:01 Last Admin: 10/31/18 15:14 Dose: Not Given Influenza Virus Vaccine (Fluzone Quad 9300-1017 Syringe) 60 mcg IM .ONCE ONE Stop: 11/01/18 10:01 Last Admin: 11/01/18 11:21 Dose: 60 mcg Iohexol (Omnipaque) 20 ml PO ASDIRECTED [facility] Last Admin: 11/02/18 12:18 Dose: 20 ml Iopamidol (Isovue-300 (61%)) 150 ml IV . DIRECTED [facility] Last Admin: 10/30/18 15:09 Dose: 128 ml Iopamidol (Isovue-300 (61%)) 128 ml IV . DIRECTED [facility] Iopamidol (Isovue-300 (61%)) 100 ml IV . DIRECTED [facility] Stop: 11/02/18 13:00 Last Admin: 11/02/18 12:23 Dose: 100 ml Midazolam HCl (Versed 1 Mg/Ml) Confirm Administered Dose 2 mg .ROUTE .STK-MED ONE Stop: 11/03/18 07:46 Polyethylene Glycol (Miralax) 238 gm PO ONETIME ONE Stop: 11/02/18 17:01 Last Admin: 11/02/18 16:49 Dose: 238 gm Potassium Chloride (Klor-Con M20) 20 meq PO ONETIME ONE Stop: 10/31/18 05:39 Last Admin: 10/31/18 10:39 Dose: Not Given Potassium Chloride (Klor-Con M20) 40 meq PO ONETIME ONE Stop: 10/31/18 09:01 Last Admin: 10/31/18 11:22 Dose: 40 meq Potassium Chloride (Klor-Con M20) 40 meq PO ONETIME ONE Stop: 10/31/18 14:31 Last Admin: 10/31/18 15:30 Dose: 40 meq Potassium Chloride (Klor-Con M20) 40 meq PO ONETIME ONE Stop: 11/01/18 09:01 Last Admin: 11/01/18 15:31 Dose: 40 meq Potassium Chloride (Klor-Con M20) 40 meq PO ONETIME ONE Stop: 11/01/18 15:01 Last Admin: 11/01/18 15:51 Dose: 40 meq Potassium Chloride (Klor-Con M20) 40 meq PO ONETIME ONE Stop: 11/01/18 21:01 Last Admin: 11/01/18 22:02 Dose: 40 meq Potassium Chloride (Klor-Con M20) 40 meq PO ONETIME ONE Stop: 11/02/18 09:01 Last Admin: 11/02/18 09:08 Dose: 40 meq Potassium Chloride (Klor-Con M20) 40 meq PO ONETIME ONE Stop: 11/02/18 13:01 Last Admin: 11/02/18 13:07 Dose: 40 meq Propofol (Diprivan 20 Ml) Confirm Administered Dose 200 mg .ROUTE .STK-MED ONE Stop: 11/03/18 07:46 Propofol (Diprivan 20 Ml) Confirm Administered Dose 200 mg .ROUTE .STK-MED ONE Stop: 11/03/18 07:56 Sodium Chloride (Saline Flush) 10 ml FLUSH ONETIME PRN PRN Reason: PER RADIOLOGY PROTOCOL Last Admin: 10/30/18 15:09 Dose: 10 ml Sodium Chloride (Saline Flush) 10 ml FLUSH ONETIME ONE Stop: 11/02/18 12:05 Last Admin: 11/02/18 12:17 Dose: 10 ml - Exam General: Alert, Oriented, Cooperative, Mild Distress Lungs: Clear to Auscultation, Normal Respiratory Effort Cardiovascular: Regular Rate, Regular Rhythm, No Murmurs GI/Abdominal Exam: Soft, Non-Tender, Distended, Tender. No: Guarding, Rigid, Rebound Extremities: Non-Tender, No Pedal Edema - Problem List Review Problem List Initiated/Reviewed/Updated: Yes - My Orders Last 24 Hours: My Active Orders 11/03/18 11:20 Convert IV to Saline Lock [OM.PC] Routine 11/03/18 11:22 Furosemide [Lasix] 20 mg IVPUSH NOW ONE 11/03/18 11:30 Pantoprazole [ProTONIX IV] 40 mg IVPUSH Q12H Spironolactone [Aldactone] 25 mg PO BID 11/03/18 Breakfast Nothing per Oral After Midnight Diet [DIET] 11/04/18 05:00 CBC WITH AUTO DIFF [HEME] Timed COMPREHENSIVE METABOLIC PN,CMP [CHEM] Timed INR,PT,PROTHROMBIN TIME [COAG] Timed - Plan Plan:: ASSESSMENT AND PLAN HEPATIC CIRRHOSIS- with elevation in bilirubin and INR, history of chronic alcohol use. Will require further evaluation for other underlying liver disease. CT scan shows evidence of cirrhosis, spider angiomas noted upper chest and back. Bilirubin up slightly today, INR improved. He has noted increased abdominal distention associated with abdominal pain. Repeat CT scan obtained yesterday shows no acute or new findings to otherwise explain his increase in abdominal pain, moderate amount of ascites was noted to be present. EGD performed by Dr. Lowery that show evidence of esophageal varices. Ferritin levels significantly elevated at 2400, iron saturation significantly elevated. Anti-smooth muscle antibody slightly elevated, other labs are pending -Stop all alcohol use -Saline lock IV -Medication for pain and nausea as needed -Further laboratory evaluation including; serology for viral hepatitis, alpha-1 antitrypsin, JAQUELINE, antimitochondrial antibody, ceruloplasmin -Outpatient referral to gastroenterology ACUTE CHOLECYSTITIS-evidence of gallbladder infection noted on MRCP as well as ultrasound. White blood cell count improved from admission, but still elevated. -Continue conservative management -IV Zosyn ASCITES-IV fluids have been used intermittently since admission because of low urine output and dehydration on initial presentation. During that period time ascites has moderately progressed with sensation of abdominal distention. -Discontinue IV fluids -Spironolactone 25 mg by mouth twice daily -Furosemide 20 mg IV now GASTRITIS AND DUODENITIS-no further bleeding noted since yesterday, she D showed evidence of inflammation in the stomach and duodenum as well as esophageal varices -Protonix 40 mg IV every 12 hours -Surgical follow-up per Dr. Lowery CHRONIC ALCOHOL DEPENDENCE -Alcohol cessation -Outpatient alcohol treatment MAINTENANCE ISSUES -DVT prophylaxis; INR elevated at greater than 2 -GI prophylaxis; not indicated -Oneal catheter; not indicated -Nutrition; regular diet -Nicotine dependence; not required CODE STATUS-FULL CODE ADMISSION STATUS-patient will be admitted to inpatient status, expect at least a 2 night hospital stay for evaluation and management of problems as outlined above. At the time of this admission I do not reasonably expected evaluation and management of this problem will require more than a 96 hour hospital stay. DISPOSITION-anticipate discharge to home after the hospital stay. PRIMARY CARE PROVIDER-Landon Koenig
[2018-11-03] MEDS ORDERED: diphenhydrAMINE 25 MG Cap PO PRN (11:52)
[2018-11-03] MEDS ORDERED: Furosemide 20 MG/2 ML VIAL IVPUSH ONE (12:00)
[2018-11-03] MEDS: Pantoprazole 40 MG Vial IVPUSH SCH ×2 (12:15→23:39)
[2018-11-03] MEDS: Spironolactone 25 MG Tab PO SCH ×2 (12:16→21:36)
[2018-11-03] MEDS: Baclofen 10 MG Tab PO SCH (21:36)
[2018-11-03] MEDS: Melatonin 3 MG Tab PO SCH (21:37)
[2018-11-04] MEDS: Piperacillin/Tazobactam/Dext 3.375 GM in Premix Bag 1 BAG IV SCH ×4 (05:50→23:16)
[2018-11-04] MEDS: oxyCODONE 5 MG Tab PO PRN ×4 (07:57→23:17)
[2018-11-04] MEDS: Spironolactone 25 MG Tab PO SCH ×2 (08:35→20:31)
[2018-11-04] MEDS ORDERED: Potassium Chloride 20 MEQ Tab.ER PO ONE (09:30)
--- NOTE | 2018-11-04 09:55 | PCM.PN ---
- General Info Date of Service: 11/04/18 Subjective Update: There were no acute events overnight. Patient does report a couple more episodes of bright red blood per rectum. Abdominal distention persists but is a little better today. His abdominal pain did improve after diuresis yesterday. Most of his abdominal pain is right upper quadrant. Appetite has been good. Bilirubin slightly better today but still very elevated. He has not had any fevers. Functional Status: Reports: Pain Controlled, Tolerating Diet - Review of Systems General: Reports: Weakness Cardiovascular: Reports: Dyspnea on Exertion Gastrointestinal: Reports: Abdominal Pain, Hematochezia - Patient Data Vitals - Most Recent: Last Vital Signs Temp 37.4 C 11/04/18 07:00 Pulse 94 11/04/18 07:00 Resp 18 11/04/18 07:00 BP 123/74 11/04/18 07:00 Pulse Ox 97 11/04/18 07:00 Weight - Most Recent: 93.939 kg I&O - Last 24 Hours: Intake & Output 11/03/18 11/04/18 11/04/18 22:59 06:59 14:59 Intake Total 480 600 Output Total 500 500 175 Balance -20 100 -175 Lab Results Last 24 Hours: Laboratory Results - last 24 hr 10/30/18 10/30/18 11/04/18 Range/Units 04:50 17:00 04:30 WBC 17.5 H (4.5-11.0) K/uL RBC 3.42 L (4.30-5.90) M/uL Hgb 12.1 (12.0-15.0) g/dL Hct 33.1 L (40.0-54.0) % MCV 97 (80-98) fL MCH 35 H (27-31) pg MCHC 37 H (32-36) % Plt Count 279 (150-400) K/uL Neut % (Auto) 80 H (36-66) % Lymph % (Auto) 6 L (24-44) % Calvert % (Auto) 13 H (2-6) % Eos % (Auto) 1 L (2-4) % Baso % (Auto) 1 (0-1) % PT (9.5-12.0) sec INR (0.80-1.20) Sodium (140-148) mmol/L Potassium (3.6-5.2) mmol/L Chloride (100-108) mmol/L Carbon Dioxide (21-32) mmol/L Anion Gap (5.0-14.0) mmol/L BUN (7-18) mg/dL Creatinine (0.8-1.3) mg/dL Est Cr Clr Drug Dosing mL/min Estimated GFR (MDRD) (>60) Glucose (74-106) mg/dL Calcium (8.5-10.1) mg/dL Total Bilirubin (0.2-1.0) mg/dL AST (15-37) U/L ALT (12-78) U/L Alkaline Phosphatase (46-116) U/L Total Protein (6.4-8.2) g/dL Albumin (3.4-5.0) g/dL Globulin (2.3-3.5) g/dL Albumin/Globulin Ratio (1.2-2.2) Anti-Mitochondrial Ab 13.4 (0.0-20.0) Units Anti-Smooth Muscle Ab 26 H (0-19) Units 11/04/18 11/04/18 Range/Units 04:30 05:00 WBC (4.5-11.0) K/uL RBC (4.30-5.90) M/uL Hgb (12.0-15.0) g/dL Hct (40.0-54.0) % MCV (80-98) fL MCH (27-31) pg MCHC (32-36) % Plt Count (150-400) K/uL Neut % (Auto) (36-66) % Lymph % (Auto) (24-44) % Calvert % (Auto) (2-6) % Eos % (Auto) (2-4) % Baso % (Auto) (0-1) % PT 15.6 H (9.5-12.0) sec INR 1.45 H (0.80-1.20) Sodium 133 L (140-148) mmol/L Potassium 3.3 L (3.6-5.2) mmol/L Chloride 104 (100-108) mmol/L Carbon Dioxide 17 L (21-32) mmol/L Anion Gap 15.3 H (5.0-14.0) mmol/L BUN 13 (7-18) mg/dL Creatinine 1.0 (0.8-1.3) mg/dL Est Cr Clr Drug Dosing 89.30 mL/min Estimated GFR (MDRD) > 60 (>60) Glucose 120 H (74-106) mg/dL Calcium 7.5 L (8.5-10.1) mg/dL Total Bilirubin 19.2 H (0.2-1.0) mg/dL AST 153 H (15-37) U/L ALT 49 (12-78) U/L Alkaline Phosphatase 207 H (46-116) U/L Total Protein 5.5 L (6.4-8.2) g/dL Albumin 1.2 L (3.4-5.0) g/dL Globulin 4.3 H (2.3-3.5) g/dL Albumin/Globulin Ratio 0.3 L (1.2-2.2) Anti-Mitochondrial Ab (0.0-20.0) Units Anti-Smooth Muscle Ab (0-19) Units Raymond Results Last 24 Hours: Microbiology 11/03/18 08:05 CLOtest - Final Stomach NEGATIVE CLOTEST Med Orders - Current: Current Medications Al Hydroxide/Mg Hydroxide (Mag-Al Plus) 30 ml PO Q2H PRN PRN Reason: Epigastric pain Baclofen (Lioresal) 10 mg PO BEDTIME [facility] Last Admin: 11/03/18 21:36 Dose: 10 mg Diphenhydramine HCl (Benadryl) 25 mg PO Q6H PRN PRN Reason: Itching Last Admin: 11/03/18 21:36 Dose: 25 mg Piperacillin/Tazobactam/ (Dextrose 3.375 gm/ Premix) 50 mls @ 100 mls/hr IV Q6H [facility] Last Admin: 11/04/18 05:50 Dose: 100 mls/hr Melatonin (Melatonin) 9 mg PO BEDTIME [facility] Last Admin: 11/03/18 21:37 Dose: Not Given Ondansetron HCl (Zofran) 4 mg IV Q4H PRN PRN Reason: Nausea/Vomiting Oxycodone HCl (Oxycodone) 5 mg PO Q4H PRN PRN Reason: Pain (moderate 4-6) Last Admin: 11/04/18 07:57 Dose: 5 mg Pantoprazole Sodium (Protonix Iv) 40 mg IVPUSH Q12H [facility] Last Admin: 11/03/18 23:39 Dose: 40 mg Phytonadione (Aquamephyton) 5 mg PO DAILY [facility] Last Admin: 11/03/18 09:26 Dose: 5 mg Senna/Docusate Sodium (Senna Plus) 1 tab PO BID PRN PRN Reason: Constipation Sodium Chloride (Saline Flush) 10 ml FLUSH ASDIRECTED PRN PRN Reason: Keep Vein Open Spironolactone (Aldactone) 25 mg PO BID [facility] Last Admin: 11/04/18 08:35 Dose: 25 mg Discontinued Medications Bisacodyl (Dulcolax) 10 mg RECTAL ONETIME ONE Stop: 10/30/18 15:03 Last Admin: 10/30/18 16:49 Dose: 10 mg Bisacodyl (Dulcolax) Confirm Administered Dose 10 mg .ROUTE .STK-MED ONE Stop: 10/30/18 16:54 Last Admin: 10/30/18 17:45 Dose: 10 mg Bisacodyl (Dulcolax) 10 mg PO ONETIME ONE Stop: 11/02/18 10:31 Last Admin: 11/02/18 10:38 Dose: 10 mg Bisacodyl (Dulcolax) 10 mg PO ONETIME ONE Stop: 11/02/18 20:01 Last Admin: 11/02/18 19:47 Dose: 10 mg Fentanyl (Sublimaze) Confirm Administered Dose 100 mcg .ROUTE .STK-MED ONE Stop: 11/03/18 07:46 Furosemide (Lasix) 20 mg IVPUSH NOW ONE Stop: 11/03/18 12:01 Last Admin: 11/03/18 12:17 Dose: 20 mg Sodium Chloride (Normal Saline) 1,000 mls @ 500 mls/hr IV ASDIRECTED [facility] Last Admin: 10/30/18 13:44 Dose: 500 mls/hr Sodium Chloride (Normal Saline) 100 mls @ 3 mls/sec IV ONETIME ONE Stop: 10/30/18 14:33 Last Admin: 10/30/18 16:44 Dose: 3 mls/sec Sodium Chloride (Normal Saline) 79 mls @ 3 mls/sec IV ONETIME ONE Stop: 10/30/18 15:06 Last Admin: 10/30/18 15:09 Dose: 3 mls/sec Piperacillin/Tazobactam/ (Dextrose 3.375 gm/ Premix) 50 mls @ 100 mls/hr IV Q6H [facility] Last Admin: 10/31/18 05:38 Dose: 100 mls/hr Sodium Chloride (Normal Saline) 1,000 mls @ 125 mls/hr IV ASDIRECTED [facility] Last Admin: 10/31/18 11:23 Dose: 125 mls/hr Potassium Chloride 20 meq/ (Lidocaine HCl 2 ml/ Premix) 102 mls @ 51 mls/hr IV ONETIME ONE Stop: 10/31/18 07:59 Last Admin: 10/31/18 05:59 Dose: 51 mls/hr Potassium Chloride (Kcl 20 Meq In Water 100 Ml) Confirm Administered Dose 100 mls @ as directed .ROUTE .STK-MED ONE Stop: 10/31/18 05:55 Last Admin: 10/31/18 10:39 Dose: Not Given Sodium Chloride (Normal Saline) 1,000 mls @ 500 mls/hr IV ASDIRECTED [facility] Last Admin: 11/01/18 20:50 Dose: 500 mls/hr Sodium Chloride (Normal Saline) 1,000 mls @ 125 mls/hr IV ASDIRECTED [facility] Last Admin: 11/02/18 05:52 Dose: 125 mls/hr Sodium Chloride (Normal Saline) 1,000 mls @ 50 mls/hr IV ASDIRECTED [facility] Last Admin: 11/02/18 19:47 Dose: 50 mls/hr Sodium Chloride (Normal Saline) 100 mls @ 3.5 mls/sec IV ONETIME ONE Stop: 11/02/18 12:05 Last Admin: 11/02/18 12:17 Dose: 3 mls/sec Ibuprofen (Motrin) 600 mg PO Q6H PRN PRN Reason: Fever Last Admin: 11/02/18 17:13 Dose: 600 mg Influenza Virus Vaccine (Pharmacy To Dose - Influenza Vaccine) 1 each IM ONETIME ONE Stop: 10/31/18 14:01 Last Admin: 10/31/18 15:14 Dose: Not Given Influenza Virus Vaccine (Fluzone Quad [id number] Syringe) 60 mcg IM .ONCE ONE Stop: 11/01/18 10:01 Last Admin: 11/01/18 11:21 Dose: 60 mcg Iohexol (Omnipaque) 20 ml PO ASDIRECTED [facility] Last Admin: 11/02/18 12:18 Dose: 20 ml Iopamidol (Isovue-300 (61%)) 150 ml IV . DIRECTED [facility] Last Admin: 10/30/18 15:09 Dose: 128 ml Iopamidol (Isovue-300 (61%)) 128 ml IV . DIRECTED [facility]ONG Iopamidol (Isovue-300 (61%)) 100 ml IV . DIRECTED BONG Stop: 11/02/18 13:00 Last Admin: 11/02/18 12:23 Dose: 100 ml Midazolam HCl (Versed 1 Mg/Ml) Confirm Administered Dose 2 mg .ROUTE .STK-MED ONE Stop: 11/03/18 07:46 Polyethylene Glycol (Miralax) 238 gm PO ONETIME ONE Stop: 11/02/18 17:01 Last Admin: 11/02/18 16:49 Dose: 238 gm Potassium Chloride (Klor-Con M20) 20 meq PO ONETIME ONE Stop: 10/31/18 05:39 Last Admin: 10/31/18 10:39 Dose: Not Given Potassium Chloride (Klor-Con M20) 40 meq PO ONETIME ONE Stop: 10/31/18 09:01 Last Admin: 10/31/18 11:22 Dose: 40 meq Potassium Chloride (Klor-Con M20) 40 meq PO ONETIME ONE Stop: 10/31/18 14:31 Last Admin: 10/31/18 15:30 Dose: 40 meq Potassium Chloride (Klor-Con M20) 40 meq PO ONETIME ONE Stop: 11/01/18 09:01 Last Admin: 11/01/18 15:31 Dose: 40 meq Potassium Chloride (Klor-Con M20) 40 meq PO ONETIME ONE Stop: 11/01/18 15:01 Last Admin: 11/01/18 15:51 Dose: 40 meq Potassium Chloride (Klor-Con M20) 40 meq PO ONETIME ONE Stop: 11/01/18 21:01 Last Admin: 11/01/18 22:02 Dose: 40 meq Potassium Chloride (Klor-Con M20) 40 meq PO ONETIME ONE Stop: 11/02/18 09:01 Last Admin: 11/02/18 09:08 Dose: 40 meq Potassium Chloride (Klor-Con M20) 40 meq PO ONETIME ONE Stop: 11/02/18 13:01 Last Admin: 11/02/18 13:07 Dose: 40 meq Potassium Chloride (Klor-Con M20) 40 meq PO ONETIME ONE Stop: 11/04/18 09:31 Propofol (Diprivan 20 Ml) Confirm Administered Dose 200 mg .ROUTE .STK-MED ONE Stop: 11/03/18 07:46 Propofol (Diprivan 20 Ml) Confirm Administered Dose 200 mg .ROUTE .STK-MED ONE Stop: 11/03/18 07:56 Sodium Chloride (Saline Flush) 10 ml FLUSH ONETIME PRN PRN Reason: PER RADIOLOGY PROTOCOL Last Admin: 10/30/18 15:09 Dose: 10 ml Sodium Chloride (Saline Flush) 10 ml FLUSH ONETIME ONE Stop: 11/02/18 12:05 Last Admin: 11/02/18 12:17 Dose: 10 ml - Exam Quality Assessment: No: Supplemental Oxygen General: Alert, Oriented, Cooperative, No Acute Distress Lungs: Clear to Auscultation, Normal Respiratory Effort Cardiovascular: Regular Rate, Regular Rhythm GI/Abdominal Exam: Soft, Distended, Tender Extremities: Pedal Edema (Right > left ). No: Increased Warmth Skin: Other (jaundice) Psy/Mental Status: Alert, Normal Affect - Problem List Review Problem List Initiated/Reviewed/Updated: Yes - My Orders Last 24 Hours: My Active Orders 11/05/18 05:00 CBC W/O DIFF,HEMOGRAM [HEME] Timed (1) COMPREHENSIVE METABOLIC PN,CMP [CHEM] Timed - Plan Plan:: ASSESSMENT AND PLAN HEPATIC CIRRHOSIS - history of chronic alcohol use and this is suspected to be the cause for his liver disease but additional workup is still pending as discussed below. Ferritin significantly elevated. Anti-smooth muscle antibody was mildly positive. CT scan showed cirrhosis. Bilirubin slightly better today. -Stop all alcohol use -Saline lock IV -Medication for pain and nausea as needed -Further laboratory evaluation including alpha-1 antitrypsin, antimitochondrial antibody, ceruloplasmin -Outpatient referral to gastroenterology ACUTE CHOLECYSTITIS - evidence of gallbladder infection noted on MRCP as well as ultrasound. White blood cell count has normalized. -Continue conservative management -IV Zosyn ASCITES - slightly better with diuresis yesterday but still significant distention. -Spironolactone 25 mg by mouth twice daily -Furosemide 20 mg IV again this morning GASTRITIS AND DUODENITIS - no further bleeding noted, EGD showed evidence of inflammation in the stomach and duodenum as well as esophageal varices -Protonix 40 mg IV every 12 hours -Surgical follow-up per Dr. Lowery CHRONIC ALCOHOL DEPENDENCE -Alcohol cessation -Outpatient alcohol treatment MAINTENANCE ISSUES -DVT prophylaxis; mechanical with elevated INR and recent bleeding -GI prophylaxis; not indicated -Oneal catheter; not indicated -Nutrition; regular diet DISPOSITION - anticipate discharge to home after the hospital stay. Magdaleno Hutchinson MD
--- NOTE | 2018-11-04 09:58 | CR ---
Chest 2V HISTORY: Shortness of breath COMPARISON: Chest x-ray 10/12/2013. FINDINGS: Limited inspiration. Minimal subsegmental atelectatic change at both lung bases. No dense infiltrate or effusion. No acute congestive change. Cardiac size is normal. Impression: Limited inspiration with atelectatic change. No acute infiltrates.
--- NOTE | 2018-11-04 10:01 | CR ---
Abdomen 2V AP Flat Upright HISTORY: Cirrhosis COMPARISON: Prior CT scan 10/30/2018. FINDINGS: Bowel gas pattern is nonobstructive. There is no free air seen. No suspicious calcifications. Vascular calcifications left hemipelvis. Impression: No evidence for obstruction or free air.
[2018-11-04 10:09] LABS: ANA DIRECT Negative (Negative)
[2018-11-04] MEDS ORDERED: Furosemide 20 MG/2 ML VIAL IVPUSH ONE ×2 (10:15→16:00)
[2018-11-04] MEDS: Phytonadione ORAL 5mg/5ml Soln Simple Syrup U/D PO SCH (11:04)
[2018-11-04] MEDS: Pantoprazole 40 MG Vial IVPUSH SCH ×2 (11:10→23:20)
--- NOTE | 2018-11-04 14:03 | PN ---
DATE OF SERVICE: 11/04/2018 SUBJECTIVE: Igor had a temperature max of 100.8. Potassium this morning is 3.3. He had panendoscopy yesterday. Currently, he has a low-grade temp of 99.4. He states his weight is up 12 pounds since admission, increased abdominal distention, shortness of breath. States it is hard for him to bend over. No chest pain. Abdomen tenderness in the right and left upper quadrants bilaterally. States the excessive fluid in his abdomen is pushing on his rib cage. Oral intake in the past 24 hours was 1530. He did have Lasix yesterday, which he states did help with his breathing and abdominal distention, has had four bowel movements. Extremities are without pain or peripheral edema. Skin and neuro intact. Negative for any dizziness, loss of coordination. Psychiatric, negative. REVIEW OF SYSTEMS: Remainder of review of systems negative for any pertinent positives and negatives. OBJECTIVE: GENERAL: Igor Mckee is a 48-year-old male, alert and orientated. He is short of breath. VITAL SIGNS: TPR is 99.4, 94, 18, blood pressure 123/74. HEENT: Negative. NECK: Supple. HEART: Regular rate and rhythm. LUNGS: Clear, but he is unable to completely take a deep breath. ABDOMEN: Firm, rounded. He does have tenderness in all 4 quadrants. The right upper quadrant and left upper quadrant are the most tender. He states the pain is greater on the right than the left side. EXTREMITIES: Without peripheral edema. Full range of motion. SKIN: Without rash. PSYCHIATRIC: Mood and affect appropriate. ASSESSMENT: 1. Hepatic cirrhosis. 2. Acute cholecystitis. Continue conservative management. Potassium 3.3. 3. Ascites. 4. Gastritis and duodenitis. PLAN: Continue to monitor lab values and the pain, we will evaluate p.r.n. or in a.m. Rae Ogden PA-C /[id number]
[2018-11-04] MEDS: Melatonin 3 MG Tab PO SCH (20:31)
[2018-11-04] MEDS: Baclofen 10 MG Tab PO SCH (20:31)
[2018-11-05] MEDS: Piperacillin/Tazobactam/Dext 3.375 GM in Premix Bag 1 BAG IV SCH ×4 (05:01→23:26)
[2018-11-05] MEDS: Spironolactone 25 MG Tab PO SCH ×2 (08:39→20:02)
[2018-11-05] MEDS: Furosemide 40 MG Tab PO SCH ×2 (08:39→14:04)
[2018-11-05] MEDS: Phytonadione ORAL 5mg/5ml Soln Simple Syrup U/D PO SCH (08:42)
[2018-11-05] MEDS ORDERED: Potassium Chloride 20 MEQ Tab.ER PO ONE (09:30)
--- NOTE | 2018-11-05 11:29 | PN ---
DATE OF SERVICE: 11/05/2018 The patient was afebrile with stable vital signs. Generally, he is not complaining much in the way of abdominal pain other than that what would be associated with his ascites and associated distention. He does not appear to be significantly tender over the area of the gallbladder. The bilirubin remains around 20. At this point, there would not appear to be any obvious surgical indication for gallbladder removal or such. We will continue to follow the case. Valdemar Lowery MD /[id number]
[2018-11-05] MEDS: Pantoprazole 40 MG Vial IVPUSH SCH (12:05)
--- NOTE | 2018-11-05 13:55 | PCM.PN ---
- General Info Date of Service: 11/05/18 Subjective Update: There were no acute events overnight. Anasarca seems to be slowly improving. Abdomen seems less distended and is less painful today. No significant right upper quadrant pain this morning. Hematochezia seems to be decreasing with only small quantities of blood noted this morning. He has not had any fevers or vomiting. Bilirubin is stable from yesterday. In general he is feeling better today than he has the past couple of days. Functional Status: Reports: Pain Controlled - Review of Systems General: Denies: Fever Gastrointestinal: Reports: Abdominal Pain Skin: Reports: Jaundice - Patient Data Vitals - Most Recent: Last Vital Signs Temp 37.2 C 11/05/18 10:45 Pulse 87 11/05/18 10:45 Resp 16 11/05/18 10:45 BP 113/63 11/05/18 10:45 Pulse Ox 96 11/05/18 10:45 Weight - Most Recent: 92.533 kg I&O - Last 24 Hours: Intake & Output 11/04/18 11/05/18 11/05/18 22:59 06:59 14:59 Intake Total 910 700 480 Output Total 2100 500 100 Balance -1190 200 380 Lab Results Last 24 Hours: Laboratory Results - last 24 hr 11/05/18 11/05/18 Range/Units 05:15 05:15 WBC 19.1 H (4.5-11.0) K/uL RBC 3.58 L (4.30-5.90) M/uL Hgb 12.4 (12.0-15.0) g/dL Hct 34.8 L (40.0-54.0) % MCV 97 (80-98) fL MCH 35 H (27-31) pg MCHC 36 (32-36) % Plt Count 274 (150-400) K/uL Sodium 133 L (140-148) mmol/L Potassium 3.5 L (3.6-5.2) mmol/L Chloride 103 (100-108) mmol/L Carbon Dioxide 18 L (21-32) mmol/L Anion Gap 15.5 H (5.0-14.0) mmol/L BUN 11 (7-18) mg/dL Creatinine 1.0 (0.8-1.3) mg/dL Est Cr Clr Drug Dosing 89.30 mL/min Estimated GFR (MDRD) > 60 (>60) Glucose 92 (74-106) mg/dL Calcium 7.9 L (8.5-10.1) mg/dL Total Bilirubin 20.9 H (0.2-1.0) mg/dL AST 144 H (15-37) U/L ALT 54 (12-78) U/L Alkaline Phosphatase 213 H (46-116) U/L Total Protein 5.9 L (6.4-8.2) g/dL Albumin 1.3 L (3.4-5.0) g/dL Globulin 4.6 H (2.3-3.5) g/dL Albumin/Globulin Ratio 0.3 L (1.2-2.2) Raymond Results Last 24 Hours: Microbiology 11/03/18 08:05 CLOtest - Final Stomach NEGATIVE CLOTEST Med Orders - Current: Current Medications Al Hydroxide/Mg Hydroxide (Mag-Al Plus) 30 ml PO Q2H PRN PRN Reason: Epigastric pain Baclofen (Lioresal) 10 mg PO BEDTIME [facility] Last Admin: 11/04/18 20:31 Dose: 10 mg Diphenhydramine HCl (Benadryl) 25 mg PO Q6H PRN PRN Reason: Itching Last Admin: 11/03/18 21:36 Dose: 25 mg Furosemide (Lasix) 40 mg PO BIDDIURETIC [facility] Last Admin: 11/05/18 08:39 Dose: 40 mg Piperacillin/Tazobactam/ (Dextrose 3.375 gm/ Premix) 50 mls @ 100 mls/hr IV Q6H [facility] Last Admin: 11/05/18 12:06 Dose: 100 mls/hr Melatonin (Melatonin) 9 mg PO BEDTIME [facility] Last Admin: 11/04/18 20:31 Dose: 9 mg Ondansetron HCl (Zofran) 4 mg IV Q4H PRN PRN Reason: Nausea/Vomiting Oxycodone HCl (Oxycodone) 5 mg PO Q4H PRN PRN Reason: Pain (moderate 4-6) Last Admin: 11/04/18 23:17 Dose: 5 mg Phytonadione (Aquamephyton) 5 mg PO DAILY [facility] Last Admin: 11/05/18 08:42 Dose: 5 mg Senna/Docusate Sodium (Senna Plus) 1 tab PO BID PRN PRN Reason: Constipation Sodium Chloride (Saline Flush) 10 ml FLUSH ASDIRECTED PRN PRN Reason: Keep Vein Open Spironolactone (Aldactone) 25 mg PO BID [facility] Last Admin: 11/05/18 08:39 Dose: 25 mg Discontinued Medications Bisacodyl (Dulcolax) 10 mg RECTAL ONETIME ONE Stop: 10/30/18 15:03 Last Admin: 10/30/18 16:49 Dose: 10 mg Bisacodyl (Dulcolax) Confirm Administered Dose 10 mg .ROUTE .STK-MED ONE Stop: 10/30/18 16:54 Last Admin: 10/30/18 17:45 Dose: 10 mg Bisacodyl (Dulcolax) 10 mg PO ONETIME ONE Stop: 11/02/18 10:31 Last Admin: 11/02/18 10:38 Dose: 10 mg Bisacodyl (Dulcolax) 10 mg PO ONETIME ONE Stop: 11/02/18 20:01 Last Admin: 11/02/18 19:47 Dose: 10 mg Fentanyl (Sublimaze) Confirm Administered Dose 100 mcg .ROUTE .STK-MED ONE Stop: 11/03/18 07:46 Furosemide (Lasix) 20 mg IVPUSH NOW ONE Stop: 11/03/18 12:01 Last Admin: 11/03/18 12:17 Dose: 20 mg Furosemide (Lasix) 20 mg IVPUSH ONETIME ONE Stop: 11/04/18 10:16 Last Admin: 11/04/18 11:10 Dose: 20 mg Furosemide (Lasix) 20 mg IVPUSH ONETIME ONE Stop: 11/04/18 16:01 Last Admin: 11/04/18 16:22 Dose: 20 mg Sodium Chloride (Normal Saline) 1,000 mls @ 500 mls/hr IV ASDIRECTED [facility] Last Admin: 10/30/18 13:44 Dose: 500 mls/hr Sodium Chloride (Normal Saline) 100 mls @ 3 mls/sec IV ONETIME ONE Stop: 10/30/18 14:33 Last Admin: 10/30/18 16:44 Dose: 3 mls/sec Sodium Chloride (Normal Saline) 79 mls @ 3 mls/sec IV ONETIME ONE Stop: 10/30/18 15:06 Last Admin: 10/30/18 15:09 Dose: 3 mls/sec Piperacillin/Tazobactam/ (Dextrose 3.375 gm/ Premix) 50 mls @ 100 mls/hr IV Q6H [facility] Last Admin: 10/31/18 05:38 Dose: 100 mls/hr Sodium Chloride (Normal Saline) 1,000 mls @ 125 mls/hr IV ASDIRECTED [facility] Last Admin: 10/31/18 11:23 Dose: 125 mls/hr Potassium Chloride 20 meq/ (Lidocaine HCl 2 ml/ Premix) 102 mls @ 51 mls/hr IV ONETIME ONE Stop: 10/31/18 07:59 Last Admin: 10/31/18 05:59 Dose: 51 mls/hr Potassium Chloride (Kcl 20 Meq In Water 100 Ml) Confirm Administered Dose 100 mls @ as directed .ROUTE .STK-MED ONE Stop: 10/31/18 05:55 Last Admin: 10/31/18 10:39 Dose: Not Given Sodium Chloride (Normal Saline) 1,000 mls @ 500 mls/hr IV ASDIRECTED [facility] Last Admin: 11/01/18 20:50 Dose: 500 mls/hr Sodium Chloride (Normal Saline) 1,000 mls @ 125 mls/hr IV ASDIRECTED [facility] Last Admin: 11/02/18 05:52 Dose: 125 mls/hr Sodium Chloride (Normal Saline) 1,000 mls @ 50 mls/hr IV ASDIRECTED [facility] Last Admin: 11/02/18 19:47 Dose: 50 mls/hr Sodium Chloride (Normal Saline) 100 mls @ 3.5 mls/sec IV ONETIME ONE Stop: 11/02/18 12:05 Last Admin: 11/02/18 12:17 Dose: 3 mls/sec Ibuprofen (Motrin) 600 mg PO Q6H PRN PRN Reason: Fever Last Admin: 11/02/18 17:13 Dose: 600 mg Influenza Virus Vaccine (Pharmacy To Dose - Influenza Vaccine) 1 each IM ONETIME ONE Stop: 10/31/18 14:01 Last Admin: 10/31/18 15:14 Dose: Not Given Influenza Virus Vaccine (Fluzone Quad [id number] Syringe) 60 mcg IM .ONCE ONE Stop: 11/01/18 10:01 Last Admin: 11/01/18 11:21 Dose: 60 mcg Iohexol (Omnipaque) 20 ml PO ASDIRECTED [facility] Last Admin: 11/02/18 12:18 Dose: 20 ml Iopamidol (Isovue-300 (61%)) 150 ml IV . DIRECTED [facility] Last Admin: 10/30/18 15:09 Dose: 128 ml Iopamidol (Isovue-300 (61%)) 128 ml IV . DIRECTED [facility] Iopamidol (Isovue-300 (61%)) 100 ml IV . DIRECTED [facility] Stop: 11/02/18 13:00 Last Admin: 11/02/18 12:23 Dose: 100 ml Midazolam HCl (Versed 1 Mg/Ml) Confirm Administered Dose 2 mg .ROUTE .STK-MED ONE Stop: 11/03/18 07:46 Pantoprazole Sodium (Protonix Iv) 40 mg IVPUSH Q12H [facility] Last Admin: 11/05/18 12:05 Dose: 40 mg Polyethylene Glycol (Miralax) 238 gm PO ONETIME ONE Stop: 11/02/18 17:01 Last Admin: 11/02/18 16:49 Dose: 238 gm Potassium Chloride (Klor-Con M20) 20 meq PO ONETIME ONE Stop: 10/31/18 05:39 Last Admin: 10/31/18 10:39 Dose: Not Given Potassium Chloride (Klor-Con M20) 40 meq PO ONETIME ONE Stop: 10/31/18 09:01 Last Admin: 10/31/18 11:22 Dose: 40 meq Potassium Chloride (Klor-Con M20) 40 meq PO ONETIME ONE Stop: 10/31/18 14:31 Last Admin: 10/31/18 15:30 Dose: 40 meq Potassium Chloride (Klor-Con M20) 40 meq PO ONETIME ONE Stop: 11/01/18 09:01 Last Admin: 11/01/18 15:31 Dose: 40 meq Potassium Chloride (Klor-Con M20) 40 meq PO ONETIME ONE Stop: 11/01/18 15:01 Last Admin: 11/01/18 15:51 Dose: 40 meq Potassium Chloride (Klor-Con M20) 40 meq PO ONETIME ONE Stop: 11/01/18 21:01 Last Admin: 11/01/18 22:02 Dose: 40 meq Potassium Chloride (Klor-Con M20) 40 meq PO ONETIME ONE Stop: 11/02/18 09:01 Last Admin: 11/02/18 09:08 Dose: 40 meq Potassium Chloride (Klor-Con M20) 40 meq PO ONETIME ONE Stop: 11/02/18 13:01 Last Admin: 11/02/18 13:07 Dose: 40 meq Potassium Chloride (Klor-Con M20) 40 meq PO ONETIME ONE Stop: 11/04/18 09:31 Last Admin: 11/04/18 11:10 Dose: 40 meq Potassium Chloride (Klor-Con M20) 40 meq PO ONETIME ONE Stop: 11/05/18 09:31 Last Admin: 11/05/18 08:45 Dose: 40 meq Propofol (Diprivan 20 Ml) Confirm Administered Dose 200 mg .ROUTE .STK-MED ONE Stop: 11/03/18 07:46 Propofol (Diprivan 20 Ml) Confirm Administered Dose 200 mg .ROUTE .STK-MED ONE Stop: 11/03/18 07:56 Sodium Chloride (Saline Flush) 10 ml FLUSH ONETIME PRN PRN Reason: PER RADIOLOGY PROTOCOL Last Admin: 10/30/18 15:09 Dose: 10 ml Sodium Chloride (Saline Flush) 10 ml FLUSH ONETIME ONE Stop: 11/02/18 12:05 Last Admin: 11/02/18 12:17 Dose: 10 ml - Exam Quality Assessment: No: Supplemental Oxygen General: Alert, Oriented, Cooperative, No Acute Distress Lungs: Normal Respiratory Effort Cardiovascular: Regular Rate, Regular Rhythm GI/Abdominal Exam: Soft, Distended, Tender (Mild generalized) Extremities: Pedal Edema. No: Increased Warmth Psy/Mental Status: Alert, Normal Affect - Problem List Review Problem List Initiated/Reviewed/Updated: Yes - My Orders Last 24 Hours: My Active Orders 11/05/18 08:00 Furosemide [Lasix] 40 mg PO BIDDIURETIC 11/06/18 08:00 Pantoprazole [ProTONIX] 40 mg PO BIDAC - Plan Plan:: ASSESSMENT AND PLAN HEPATIC CIRRHOSIS - history of chronic alcohol use and this is suspected to be the cause for his liver disease but additional workup is still pending as discussed below. Ferritin significantly elevated. Anti-smooth muscle antibody was mildly positive. CT scan showed cirrhosis. MRCP did not suggest obstruction. Bilirubin stable. -Stop all alcohol use -Saline lock IV -Medication for pain and nausea as needed -Further laboratory evaluation including alpha-1 antitrypsin, antimitochondrial antibody, ceruloplasmin -Outpatient referral to gastroenterology ACUTE CHOLECYSTITIS - evidence of gallbladder infection noted on MRCP as well as ultrasound. White blood cell count remains elevated but he does not have significant pain or fevers. No obvious indication for surgical intervention at this time. -Continue conservative management -IV Zosyn, transition to oral antibiotics tomorrow morning ASCITES - slightly better with diuresis but still significant distention. -Spironolactone 25 mg by mouth twice daily -Furosemide 40 mg twice daily GASTRITIS AND DUODENITIS - patient only passing small quantities of red blood at this time. No significant epigastric pain. -Protonix 40 mg twice daily -Surgical follow-up per Dr. Lowery CHRONIC ALCOHOL DEPENDENCE -Alcohol cessation -Outpatient alcohol treatment MAINTENANCE ISSUES -DVT prophylaxis; mechanical with elevated INR and recent bleeding -GI prophylaxis; not indicated -Oneal catheter; not indicated -Nutrition; regular diet DISPOSITION - anticipate discharge to home after the hospital stay. Magdaleno Hutchinson MD
[2018-11-05] MEDS: oxyCODONE 5 MG Tab PO PRN ×2 (14:06→18:18)
[2018-11-05] MEDS: Baclofen 10 MG Tab PO SCH (20:02)
[2018-11-05] MEDS: Melatonin 3 MG Tab PO SCH (20:02)
[2018-11-06] MEDS: oxyCODONE 5 MG Tab PO PRN ×4 (00:23→21:01)
[2018-11-06] MEDS: Piperacillin/Tazobactam/Dext 3.375 GM in Premix Bag 1 BAG IV SCH ×2 (05:46→13:02)
[2018-11-06] MEDS: Furosemide 40 MG Tab PO SCH ×2 (08:14→14:00)
[2018-11-06] MEDS: Spironolactone 25 MG Tab PO SCH ×2 (08:14→14:00)
[2018-11-06] MEDS: Pantoprazole 40 MG Tab.CR PO SCH ×2 (08:14→15:48)
[2018-11-06] MEDS: Phytonadione ORAL 5mg/5ml Soln Simple Syrup U/D PO SCH (08:21)
--- NOTE | 2018-11-06 11:03 | PCM.PN ---
- General Info Date of Service: 11/06/18 Subjective Update: There were no acute events overnight. Abdominal pain is minimal at this time and is currently located mostly in the midabdomen. Lower extremity edema persists but is maybe a little bit better today. Abdominal distention is about the same today. He continues to have small quantities of bright red blood in his stool. He has not had any fevers. Appetite has been good. Functional Status: Reports: Pain Controlled, Tolerating Diet - Review of Systems General: Denies: Fever Cardiovascular: Reports: Edema Gastrointestinal: Reports: Abdominal Pain - Patient Data Vitals - Most Recent: Last Vital Signs Temp 36.6 C 11/06/18 08:11 Pulse 85 11/06/18 08:11 Resp 16 11/06/18 08:11 BP 110/66 11/06/18 08:11 Pulse Ox 96 11/06/18 08:11 Weight - Most Recent: 92.533 kg I&O - Last 24 Hours: Intake & Output 11/05/18 11/06/18 11/06/18 22:59 06:59 14:59 Intake Total 580 120 Output Total 1275 500 400 Balance -1275 80 -280 Med Orders - Current: Current Medications Al Hydroxide/Mg Hydroxide (Mag-Al Plus) 30 ml PO Q2H PRN PRN Reason: Epigastric pain Amoxicillin/Clavulanate Potassium (Augmentin 875 Mg/125 Mg) 1 tab PO Q12HR [facility] Baclofen (Lioresal) 10 mg PO BEDTIME [facility] Last Admin: 11/05/18 20:02 Dose: 10 mg Diphenhydramine HCl (Benadryl) 25 mg PO Q6H PRN PRN Reason: Itching Last Admin: 11/03/18 21:36 Dose: 25 mg Furosemide (Lasix) 40 mg PO BIDDIURETIC [facility] Last Admin: 11/06/18 08:14 Dose: 40 mg Piperacillin/Tazobactam/ (Dextrose 3.375 gm/ Premix) 50 mls @ 100 mls/hr IV Q6H [facility] Stop: 11/06/18 14:00 Last Admin: 11/06/18 05:46 Dose: 100 mls/hr Melatonin (Melatonin) 9 mg PO BEDTIME [facility] Last Admin: 11/05/18 20:02 Dose: 9 mg Ondansetron HCl (Zofran) 4 mg IV Q4H PRN PRN Reason: Nausea/Vomiting Oxycodone HCl (Oxycodone) 5 mg PO Q4H PRN PRN Reason: Pain (moderate 4-6) Last Admin: 11/06/18 00:23 Dose: 5 mg Pantoprazole Sodium (Protonix) 40 mg PO BIDAC [facility] Last Admin: 11/06/18 08:14 Dose: 40 mg Phytonadione (Aquamephyton) 5 mg PO DAILY [facility] Last Admin: 11/06/18 08:21 Dose: 5 mg Senna/Docusate Sodium (Senna Plus) 1 tab PO BID PRN PRN Reason: Constipation Sodium Chloride (Saline Flush) 10 ml FLUSH ASDIRECTED PRN PRN Reason: Keep Vein Open Discontinued Medications Bisacodyl (Dulcolax) 10 mg RECTAL ONETIME ONE Stop: 10/30/18 15:03 Last Admin: 10/30/18 16:49 Dose: 10 mg Bisacodyl (Dulcolax) Confirm Administered Dose 10 mg .ROUTE .STK-MED ONE Stop: 10/30/18 16:54 Last Admin: 10/30/18 17:45 Dose: 10 mg Bisacodyl (Dulcolax) 10 mg PO ONETIME ONE Stop: 11/02/18 10:31 Last Admin: 11/02/18 10:38 Dose: 10 mg Bisacodyl (Dulcolax) 10 mg PO ONETIME ONE Stop: 11/02/18 20:01 Last Admin: 11/02/18 19:47 Dose: 10 mg Fentanyl (Sublimaze) Confirm Administered Dose 100 mcg .ROUTE .STK-MED ONE Stop: 11/03/18 07:46 Furosemide (Lasix) 20 mg IVPUSH NOW ONE Stop: 11/03/18 12:01 Last Admin: 11/03/18 12:17 Dose: 20 mg Furosemide (Lasix) 20 mg IVPUSH ONETIME ONE Stop: 11/04/18 10:16 Last Admin: 11/04/18 11:10 Dose: 20 mg Furosemide (Lasix) 20 mg IVPUSH ONETIME ONE Stop: 11/04/18 16:01 Last Admin: 11/04/18 16:22 Dose: 20 mg Sodium Chloride (Normal Saline) 1,000 mls @ 500 mls/hr IV ASDIRECTED [facility] Last Admin: 10/30/18 13:44 Dose: 500 mls/hr Sodium Chloride (Normal Saline) 100 mls @ 3 mls/sec IV ONETIME ONE Stop: 10/30/18 14:33 Last Admin: 10/30/18 16:44 Dose: 3 mls/sec Sodium Chloride (Normal Saline) 79 mls @ 3 mls/sec IV ONETIME ONE Stop: 10/30/18 15:06 Last Admin: 10/30/18 15:09 Dose: 3 mls/sec Piperacillin/Tazobactam/ (Dextrose 3.375 gm/ Premix) 50 mls @ 100 mls/hr IV Q6H [facility] Last Admin: 10/31/18 05:38 Dose: 100 mls/hr Sodium Chloride (Normal Saline) 1,000 mls @ 125 mls/hr IV ASDIRECTED [facility] Last Admin: 10/31/18 11:23 Dose: 125 mls/hr Potassium Chloride 20 meq/ (Lidocaine HCl 2 ml/ Premix) 102 mls @ 51 mls/hr IV ONETIME ONE Stop: 10/31/18 07:59 Last Admin: 10/31/18 05:59 Dose: 51 mls/hr Potassium Chloride (Kcl 20 Meq In Water 100 Ml) Confirm Administered Dose 100 mls @ as directed .ROUTE .STK-MED ONE Stop: 10/31/18 05:55 Last Admin: 10/31/18 10:39 Dose: Not Given Sodium Chloride (Normal Saline) 1,000 mls @ 500 mls/hr IV ASDIRECTED [facility] Last Admin: 11/01/18 20:50 Dose: 500 mls/hr Sodium Chloride (Normal Saline) 1,000 mls @ 125 mls/hr IV ASDIRECTED [facility] Last Admin: 11/02/18 05:52 Dose: 125 mls/hr Sodium Chloride (Normal Saline) 1,000 mls @ 50 mls/hr IV ASDIRECTED [facility] Last Admin: 11/02/18 19:47 Dose: 50 mls/hr Sodium Chloride (Normal Saline) 100 mls @ 3.5 mls/sec IV ONETIME ONE Stop: 11/02/18 12:05 Last Admin: 11/02/18 12:17 Dose: 3 mls/sec Ibuprofen (Motrin) 600 mg PO Q6H PRN PRN Reason: Fever Last Admin: 11/02/18 17:13 Dose: 600 mg Influenza Virus Vaccine (Pharmacy To Dose - Influenza Vaccine) 1 each IM ONETIME ONE Stop: 10/31/18 14:01 Last Admin: 10/31/18 15:14 Dose: Not Given Influenza Virus Vaccine (Fluzone Quad [id number] Syringe) 60 mcg IM .ONCE ONE Stop: 11/01/18 10:01 Last Admin: 11/01/18 11:21 Dose: 60 mcg Iohexol (Omnipaque) 20 ml PO ASDIRECTED [facility] Last Admin: 11/02/18 12:18 Dose: 20 ml Iopamidol (Isovue-300 (61%)) 150 ml IV . DIRECTED [facility] Last Admin: 10/30/18 15:09 Dose: 128 ml Iopamidol (Isovue-300 (61%)) 128 ml IV . DIRECTED [facility] Iopamidol (Isovue-300 (61%)) 100 ml IV . DIRECTED [facility] Stop: 11/02/18 13:00 Last Admin: 11/02/18 12:23 Dose: 100 ml Midazolam HCl (Versed 1 Mg/Ml) Confirm Administered Dose 2 mg .ROUTE .STK-MED ONE Stop: 11/03/18 07:46 Pantoprazole Sodium (Protonix Iv) 40 mg IVPUSH Q12H [facility] Last Admin: 11/05/18 12:05 Dose: 40 mg Polyethylene Glycol (Miralax) 238 gm PO ONETIME ONE Stop: 11/02/18 17:01 Last Admin: 11/02/18 16:49 Dose: 238 gm Potassium Chloride (Klor-Con M20) 20 meq PO ONETIME ONE Stop: 10/31/18 05:39 Last Admin: 10/31/18 10:39 Dose: Not Given Potassium Chloride (Klor-Con M20) 40 meq PO ONETIME ONE Stop: 10/31/18 09:01 Last Admin: 10/31/18 11:22 Dose: 40 meq Potassium Chloride (Klor-Con M20) 40 meq PO ONETIME ONE Stop: 10/31/18 14:31 Last Admin: 10/31/18 15:30 Dose: 40 meq Potassium Chloride (Klor-Con M20) 40 meq PO ONETIME ONE Stop: 11/01/18 09:01 Last Admin: 11/01/18 15:31 Dose: 40 meq Potassium Chloride (Klor-Con M20) 40 meq PO ONETIME ONE Stop: 11/01/18 15:01 Last Admin: 11/01/18 15:51 Dose: 40 meq Potassium Chloride (Klor-Con M20) 40 meq PO ONETIME ONE Stop: 11/01/18 21:01 Last Admin: 11/01/18 22:02 Dose: 40 meq Potassium Chloride (Klor-Con M20) 40 meq PO ONETIME ONE Stop: 11/02/18 09:01 Last Admin: 11/02/18 09:08 Dose: 40 meq Potassium Chloride (Klor-Con M20) 40 meq PO ONETIME ONE Stop: 11/02/18 13:01 Last Admin: 11/02/18 13:07 Dose: 40 meq Potassium Chloride (Klor-Con M20) 40 meq PO ONETIME ONE Stop: 11/04/18 09:31 Last Admin: 11/04/18 11:10 Dose: 40 meq Potassium Chloride (Klor-Con M20) 40 meq PO ONETIME ONE Stop: 11/05/18 09:31 Last Admin: 11/05/18 08:45 Dose: 40 meq Propofol (Diprivan 20 Ml) Confirm Administered Dose 200 mg .ROUTE .STK-MED ONE Stop: 11/03/18 07:46 Propofol (Diprivan 20 Ml) Confirm Administered Dose 200 mg .ROUTE .STK-MED ONE Stop: 11/03/18 07:56 Sodium Chloride (Saline Flush) 10 ml FLUSH ONETIME PRN PRN Reason: PER RADIOLOGY PROTOCOL Last Admin: 10/30/18 15:09 Dose: 10 ml Sodium Chloride (Saline Flush) 10 ml FLUSH ONETIME ONE Stop: 11/02/18 12:05 Last Admin: 11/02/18 12:17 Dose: 10 ml Spironolactone (Aldactone) 25 mg PO BID [facility] Last Admin: 11/06/18 08:14 Dose: 25 mg - Exam Quality Assessment: No: Supplemental Oxygen General: Alert, Oriented, Cooperative, No Acute Distress Lungs: Normal Respiratory Effort Cardiovascular: Regular Rate, Regular Rhythm GI/Abdominal Exam: Soft, Distended, Tender (Mild periumbilical pain) Extremities: Pedal Edema Skin: Warm, Dry, Other (Jaundiced) Psy/Mental Status: Alert, Normal Affect - Problem List Review Problem List Initiated/Reviewed/Updated: Yes - My Orders Last 24 Hours: My Active Orders 11/06/18 07:30 Pantoprazole [ProTONIX] 40 mg PO BIDAC 11/06/18 14:00 Spironolactone [Aldactone] 25 mg PO BIDDIURETIC 11/06/18 21:00 Amoxicillin/Clavulanate K [Augmentin 875 MG/125 MG] 1 tab PO Q12HR 11/07/18 05:00 CBC W/O DIFF,HEMOGRAM [HEME] Timed (1) COMPREHENSIVE METABOLIC PN,CMP [CHEM] Timed - Plan Plan:: ASSESSMENT AND PLAN HEPATIC CIRRHOSIS - complicated by coagulopathy and ascites. history of chronic alcohol use and this is suspected to be the cause for his liver disease. Ferritin significantly elevated. Anti-smooth muscle antibody was mildly positive. JAQUELINE and hepatitis panel are negative. Alpha-1 antitrypsin and ceruloplasmin are still pending. CT scan showed cirrhosis. MRCP did not suggest obstruction. Bilirubin stable. -Stop all alcohol use -Saline lock IV -Medication for pain and nausea as needed -Further laboratory evaluation including alpha-1 antitrypsin, ceruloplasmin -Outpatient referral to gastroenterology Scheduled for December 10 ACUTE CHOLECYSTITIS - evidence of gallbladder infection noted on MRCP as well as ultrasound. White blood cell count remains elevated but he does not have significant pain or fevers. No obvious indication for surgical intervention at this time. -Continue conservative management -Transition to Augmentin today ASCITES - slightly better with diuresis but still significant distention. -Spironolactone 25 mg by mouth twice daily -Furosemide 40 mg twice daily GASTRITIS AND DUODENITIS - patient only passing small quantities of red blood at this time. No significant epigastric pain. -Protonix 40 mg twice daily -Surgical follow-up per Dr. Lowery CHRONIC ALCOHOL DEPENDENCE -Alcohol cessation -Outpatient alcohol treatment MAINTENANCE ISSUES -DVT prophylaxis; mechanical with elevated INR and recent bleeding -GI prophylaxis; not indicated -Oneal catheter; not indicated -Nutrition; regular diet DISPOSITION - anticipate discharge to home after the hospital stay. Magdaleno Hutchinson MD
[2018-11-06] MEDS: Amoxicillin/Clavulanate K 875-125 MG Tab PO SCH (21:00)
[2018-11-06] MEDS: Baclofen 10 MG Tab PO SCH (21:00)
[2018-11-06] MEDS: Melatonin 3 MG Tab PO SCH (21:01)
[2018-11-07] MEDS ORDERED: Potassium Chloride 20 MEQ in Premix Bag 1 BAG IV ONE (06:26)
--- NOTE | 2018-11-07 06:29 | PCM.SN ---
- Free Text/Narrative Note: call from [address] [place] [address], lab Potassium 2.9 A: Hypokalemia P: give IV Potassium 20 meq now. continue present plan of care.
[2018-11-07] MEDS: Spironolactone 25 MG Tab PO SCH ×2 (07:49→13:57)
[2018-11-07] MEDS: Pantoprazole 40 MG Tab.CR PO SCH ×2 (07:49→16:41)
[2018-11-07] MEDS: Furosemide 40 MG Tab PO SCH ×2 (07:50→13:57)
[2018-11-07] MEDS: oxyCODONE 5 MG Tab PO PRN ×3 (08:00→22:12)
[2018-11-07] MEDS ORDERED: Potassium Chloride 20 MEQ, Lidocaine 1% 2 ML in Sodium Chloride 0.9% 100 ML IV ONE (08:00)
[2018-11-07] MEDS: Amoxicillin/Clavulanate K 875-125 MG Tab PO SCH ×2 (08:01→22:12)
[2018-11-07] MEDS: Phytonadione ORAL 5mg/5ml Soln Simple Syrup U/D PO SCH (08:01)
[2018-11-07] MEDS: Potassium Chloride 20 MEQ Tab.ER PO SCH ×2 (09:38→22:13)
--- NOTE | 2018-11-07 10:07 | PCM.PN ---
- General Info Date of Service: 11/07/18 Subjective Update: there were no acute events overnight. Patient has mild 2 out of 10 abdominal pain at this time which is stable from yesterday. Lower extremity edema is a little better after the HAYDE stockings were placed. Good response to diuretics again yesterday. Appetite has been good. Bilirubin remained significantly elevated white count is slightly higher today. Potassium remains low despite supplementation. Functional Status: Reports: Pain Controlled, Tolerating Diet - Review of Systems General: Reports: Fever, Weakness Cardiovascular: Reports: Edema Gastrointestinal: Reports: Abdominal Pain - Patient Data Vitals - Most Recent: Last Vital Signs Temp 37.0 C 11/07/18 08:00 Pulse 81 11/07/18 08:00 Resp 16 11/07/18 08:00 BP 116/68 11/07/18 08:00 Pulse Ox 95 11/07/18 08:00 Weight - Most Recent: 90.083 kg I&O - Last 24 Hours: Intake & Output 11/06/18 11/07/18 11/07/18 22:59 06:59 14:59 Intake Total 400 480 Output Total 1350 500 400 Balance -950 -500 80 Lab Results Last 24 Hours: Laboratory Results - last 24 hr 11/07/18 11/07/18 Range/Units 04:50 04:50 WBC 21.5 H (4.5-11.0) K/uL RBC 3.44 L (4.30-5.90) M/uL Hgb 11.8 L (12.0-15.0) g/dL Hct 33.3 L (40.0-54.0) % MCV 97 (80-98) fL MCH 34 H (27-31) pg MCHC 35 (32-36) % Plt Count 236 (150-400) K/uL Sodium 132 L (140-148) mmol/L Potassium 2.9 L* (3.6-5.2) mmol/L Chloride 100 (100-108) mmol/L Carbon Dioxide 21 (21-32) mmol/L Anion Gap 13.9 (5.0-14.0) mmol/L BUN 15 (7-18) mg/dL Creatinine 1.0 (0.8-1.3) mg/dL Est Cr Clr Drug Dosing 89.30 mL/min Estimated GFR (MDRD) > 60 (>60) Glucose 104 (74-106) mg/dL Calcium 8.2 L (8.5-10.1) mg/dL Total Bilirubin 20.2 H (0.2-1.0) mg/dL AST 155 H (15-37) U/L ALT 56 (12-78) U/L Alkaline Phosphatase 206 H (46-116) U/L Total Protein 5.8 L (6.4-8.2) g/dL Albumin 1.3 L (3.4-5.0) g/dL Globulin 4.5 H (2.3-3.5) g/dL Albumin/Globulin Ratio 0.3 L (1.2-2.2) Med Orders - Current: Current Medications Al Hydroxide/Mg Hydroxide (Mag-Al Plus) 30 ml PO Q2H PRN PRN Reason: Epigastric pain Amoxicillin/Clavulanate Potassium (Augmentin 875 Mg/125 Mg) 1 tab PO Q12H [facility] Last Admin: 11/07/18 08:01 Dose: 1 tab Baclofen (Lioresal) 10 mg PO BEDTIME [facility] Last Admin: 11/06/18 21:00 Dose: 10 mg Diphenhydramine HCl (Benadryl) 25 mg PO Q6H PRN PRN Reason: Itching Last Admin: 11/03/18 21:36 Dose: 25 mg Furosemide (Lasix) 40 mg PO BIDDIURETIC [facility] Last Admin: 11/07/18 07:50 Dose: 40 mg Melatonin (Melatonin) 9 mg PO BEDTIME [facility] Last Admin: 11/06/18 21:01 Dose: 9 mg Ondansetron HCl (Zofran) 4 mg IV Q4H PRN PRN Reason: Nausea/Vomiting Oxycodone HCl (Oxycodone) 5 mg PO Q4H PRN PRN Reason: Pain (moderate 4-6) Last Admin: 11/07/18 08:00 Dose: 5 mg Pantoprazole Sodium (Protonix) 40 mg PO BIDAC [facility] Last Admin: 11/07/18 07:49 Dose: 40 mg Phytonadione (Aquamephyton) 5 mg PO DAILY [facility] Last Admin: 11/07/18 08:01 Dose: 5 mg Potassium Chloride (Klor-Con M20) 40 meq PO BID [facility] Last Admin: 11/07/18 09:38 Dose: 40 meq Senna/Docusate Sodium (Senna Plus) 1 tab PO BID PRN PRN Reason: Constipation Sodium Chloride (Saline Flush) 10 ml FLUSH ASDIRECTED PRN PRN Reason: Keep Vein Open Spironolactone (Aldactone) 25 mg PO BIDDIURETIC [facility] Last Admin: 11/07/18 07:49 Dose: 25 mg Discontinued Medications Bisacodyl (Dulcolax) 10 mg RECTAL ONETIME ONE Stop: 10/30/18 15:03 Last Admin: 10/30/18 16:49 Dose: 10 mg Bisacodyl (Dulcolax) Confirm Administered Dose 10 mg .ROUTE .STK-MED ONE Stop: 10/30/18 16:54 Last Admin: 10/30/18 17:45 Dose: 10 mg Bisacodyl (Dulcolax) 10 mg PO ONETIME ONE Stop: 11/02/18 10:31 Last Admin: 11/02/18 10:38 Dose: 10 mg Bisacodyl (Dulcolax) 10 mg PO ONETIME ONE Stop: 11/02/18 20:01 Last Admin: 11/02/18 19:47 Dose: 10 mg Fentanyl (Sublimaze) Confirm Administered Dose 100 mcg .ROUTE .STK-MED ONE Stop: 11/03/18 07:46 Furosemide (Lasix) 20 mg IVPUSH NOW ONE Stop: 11/03/18 12:01 Last Admin: 11/03/18 12:17 Dose: 20 mg Furosemide (Lasix) 20 mg IVPUSH ONETIME ONE Stop: 11/04/18 10:16 Last Admin: 11/04/18 11:10 Dose: 20 mg Furosemide (Lasix) 20 mg IVPUSH ONETIME ONE Stop: 11/04/18 16:01 Last Admin: 11/04/18 16:22 Dose: 20 mg Sodium Chloride (Normal Saline) 1,000 mls @ 500 mls/hr IV ASDIRECTED [facility] Last Admin: 10/30/18 13:44 Dose: 500 mls/hr Sodium Chloride (Normal Saline) 100 mls @ 3 mls/sec IV ONETIME ONE Stop: 10/30/18 14:33 Last Admin: 10/30/18 16:44 Dose: 3 mls/sec Sodium Chloride (Normal Saline) 79 mls @ 3 mls/sec IV ONETIME ONE Stop: 10/30/18 15:06 Last Admin: 10/30/18 15:09 Dose: 3 mls/sec Piperacillin/Tazobactam/ (Dextrose 3.375 gm/ Premix) 50 mls @ 100 mls/hr IV Q6H [facility] Last Admin: 10/31/18 05:38 Dose: 100 mls/hr Sodium Chloride (Normal Saline) 1,000 mls @ 125 mls/hr IV ASDIRECTED [facility] Last Admin: 10/31/18 11:23 Dose: 125 mls/hr Potassium Chloride 20 meq/ (Lidocaine HCl 2 ml/ Premix) 102 mls @ 51 mls/hr IV ONETIME ONE Stop: 10/31/18 07:59 Last Admin: 10/31/18 05:59 Dose: 51 mls/hr Potassium Chloride (Kcl 20 Meq In Water 100 Ml) Confirm Administered Dose 100 mls @ as directed .ROUTE .STK-MED ONE Stop: 10/31/18 05:55 Last Admin: 10/31/18 10:39 Dose: Not Given Piperacillin/Tazobactam/ (Dextrose 3.375 gm/ Premix) 50 mls @ 100 mls/hr IV Q6H [facility] Stop: 11/06/18 14:00 Last Admin: 11/06/18 13:02 Dose: 100 mls/hr Sodium Chloride (Normal Saline) 1,000 mls @ 500 mls/hr IV ASDIRECTED [facility] Last Admin: 11/01/18 20:50 Dose: 500 mls/hr Sodium Chloride (Normal Saline) 1,000 mls @ 125 mls/hr IV ASDIRECTED [facility] Last Admin: 11/02/18 05:52 Dose: 125 mls/hr Sodium Chloride (Normal Saline) 1,000 mls @ 50 mls/hr IV ASDIRECTED [facility] Last Admin: 11/02/18 19:47 Dose: 50 mls/hr Sodium Chloride (Normal Saline) 100 mls @ 3.5 mls/sec IV ONETIME ONE Stop: 11/02/18 12:05 Last Admin: 11/02/18 12:17 Dose: 3 mls/sec Potassium Chloride 20 meq/Lidocaine HCl 2 ml/ Sodium Chloride 112 mls @ 56 mls/ hr IV ONETIME ONE Stop: 11/07/18 09:59 Last Admin: 11/07/18 07:49 Dose: 56 mls/hr Ibuprofen (Motrin) 600 mg PO Q6H PRN PRN Reason: Fever Last Admin: 11/02/18 17:13 Dose: 600 mg Influenza Virus Vaccine (Pharmacy To Dose - Influenza Vaccine) 1 each IM ONETIME ONE Stop: 10/31/18 14:01 Last Admin: 10/31/18 15:14 Dose: Not Given Influenza Virus Vaccine (Fluzone Quad 1037-1174 Syringe) 60 mcg IM .ONCE ONE Stop: 11/01/18 10:01 Last Admin: 11/01/18 11:21 Dose: 60 mcg Iohexol (Omnipaque) 20 ml PO ASDIRECTED [facility] Last Admin: 11/02/18 12:18 Dose: 20 ml Iopamidol (Isovue-300 (61%)) 150 ml IV . DIRECTED [facility] Last Admin: 10/30/18 15:09 Dose: 128 ml Iopamidol (Isovue-300 (61%)) 128 ml IV . DIRECTED [facility] Iopamidol (Isovue-300 (61%)) 100 ml IV . DIRECTED [facility] Stop: 11/02/18 13:00 Last Admin: 11/02/18 12:23 Dose: 100 ml Midazolam HCl (Versed 1 Mg/Ml) Confirm Administered Dose 2 mg .ROUTE .STK-MED ONE Stop: 11/03/18 07:46 Pantoprazole Sodium (Protonix Iv) 40 mg IVPUSH Q12H [facility] Last Admin: 11/05/18 12:05 Dose: 40 mg Polyethylene Glycol (Miralax) 238 gm PO ONETIME ONE Stop: 11/02/18 17:01 Last Admin: 11/02/18 16:49 Dose: 238 gm Potassium Chloride (Klor-Con M20) 20 meq PO ONETIME ONE Stop: 10/31/18 05:39 Last Admin: 10/31/18 10:39 Dose: Not Given Potassium Chloride (Klor-Con M20) 40 meq PO ONETIME ONE Stop: 10/31/18 09:01 Last Admin: 10/31/18 11:22 Dose: 40 meq Potassium Chloride (Klor-Con M20) 40 meq PO ONETIME ONE Stop: 10/31/18 14:31 Last Admin: 10/31/18 15:30 Dose: 40 meq Potassium Chloride (Klor-Con M20) 40 meq PO ONETIME ONE Stop: 11/01/18 09:01 Last Admin: 11/01/18 15:31 Dose: 40 meq Potassium Chloride (Klor-Con M20) 40 meq PO ONETIME ONE Stop: 11/01/18 15:01 Last Admin: 11/01/18 15:51 Dose: 40 meq Potassium Chloride (Klor-Con M20) 40 meq PO ONETIME ONE Stop: 11/01/18 21:01 Last Admin: 11/01/18 22:02 Dose: 40 meq Potassium Chloride (Klor-Con M20) 40 meq PO ONETIME ONE Stop: 11/02/18 09:01 Last Admin: 11/02/18 09:08 Dose: 40 meq Potassium Chloride (Klor-Con M20) 40 meq PO ONETIME ONE Stop: 11/02/18 13:01 Last Admin: 11/02/18 13:07 Dose: 40 meq Potassium Chloride (Klor-Con M20) 40 meq PO ONETIME ONE Stop: 11/04/18 09:31 Last Admin: 11/04/18 11:10 Dose: 40 meq Potassium Chloride (Klor-Con M20) 40 meq PO ONETIME ONE Stop: 11/05/18 09:31 Last Admin: 11/05/18 08:45 Dose: 40 meq Propofol (Diprivan 20 Ml) Confirm Administered Dose 200 mg .ROUTE .STK-MED ONE Stop: 11/03/18 07:46 Propofol (Diprivan 20 Ml) Confirm Administered Dose 200 mg .ROUTE .STK-MED ONE Stop: 11/03/18 07:56 Sodium Chloride (Saline Flush) 10 ml FLUSH ONETIME PRN PRN Reason: PER RADIOLOGY PROTOCOL Last Admin: 10/30/18 15:09 Dose: 10 ml Sodium Chloride (Saline Flush) 10 ml FLUSH ONETIME ONE Stop: 11/02/18 12:05 Last Admin: 11/02/18 12:17 Dose: 10 ml Spironolactone (Aldactone) 25 mg PO BID [facility] Last Admin: 11/06/18 08:14 Dose: 25 mg - Exam Quality Assessment: No: Supplemental Oxygen General: Alert, Oriented, Cooperative, No Acute Distress HEENT: Scleral Icterus Lungs: Normal Respiratory Effort Cardiovascular: Regular Rate, Regular Rhythm GI/Abdominal Exam: Distended, Tender. No: Soft Extremities: Pedal Edema Skin: Warm, Dry, Other (jaundiced) Psy/Mental Status: Alert, Normal Affect - Problem List Review Problem List Initiated/Reviewed/Updated: Yes - My Orders Last 24 Hours: My Active Orders 11/06/18 11:47 Antiembolic Devices [RC] .Routine HAYDE Hose [Antiembolic Hose] [OM.PC] Routine 11/06/18 14:00 Spironolactone [Aldactone] 25 mg PO BIDDIURETIC 11/06/18 21:00 Amoxicillin/Clavulanate K [Augmentin 875 MG/125 MG] 1 tab PO Q12H 11/07/18 09:00 Potassium Chloride [Klor-Con M20] 40 meq PO BID 11/07/18 16:00 POTASSIUM,K [CHEM] Timed 11/08/18 05:00 BASIC METABOLIC PANEL,BMP [CHEM] Timed CBC W/O DIFF,HEMOGRAM [HEME] Timed (1) - Plan Plan:: ASSESSMENT AND PLAN HEPATIC CIRRHOSIS - complicated by coagulopathy and ascites. history of chronic alcohol use and this is suspected to be the cause for his liver disease. Ferritin significantly elevated. Anti-smooth muscle antibody was mildly positive. JAQUELINE and hepatitis panel are negative. Alpha-1 antitrypsin mildly positive and ceruloplasmin was negative. CT scan showed cirrhosis. MRCP did not suggest obstruction. Bilirubin stable. -Stop all alcohol use -Saline lock IV -Medication for pain and nausea as needed -Outpatient referral to gastroenterology Scheduled for December 10 ACUTE CHOLECYSTITIS - evidence of gallbladder infection noted on MRCP as well as ultrasound. White blood cell count remains elevated but he does not have significant pain or fevers. No obvious indication for surgical intervention at this time. -Continue conservative management -Transitioned to Augmentin ASCITES - slightly better with diuresis but still significant distention. -Spironolactone 25 mg by mouth twice daily -Furosemide 40 mg twice daily GASTRITIS AND DUODENITIS - hemoglobin stable. No significant pain issues in tolerating diet. -Protonix 40 mg twice daily -Surgical follow-up per Dr. Lowery CHRONIC ALCOHOL DEPENDENCE -Alcohol cessation -Outpatient alcohol treatment MAINTENANCE ISSUES -DVT prophylaxis; mechanical with elevated INR and recent bleeding -GI prophylaxis; not indicated -Oneal catheter; not indicated -Nutrition; regular diet DISPOSITION - anticipate discharge to home after the hospital stay. Magdaleno Hutchinson MD
[2018-11-07] MEDS: Melatonin 3 MG Tab PO SCH (22:14)
[2018-11-07] MEDS: Baclofen 10 MG Tab PO SCH (22:14)
[2018-11-08] MEDS: oxyCODONE 5 MG Tab PO PRN ×5 (03:08→23:58)
[2018-11-08] MEDS: Pantoprazole 40 MG Tab.CR PO SCH ×2 (07:27→15:47)
[2018-11-08] MEDS: Potassium Chloride 20 MEQ Tab.ER PO SCH ×2 (08:08→20:27)
[2018-11-08] MEDS: Spironolactone 25 MG Tab PO SCH ×2 (08:09→13:22)
[2018-11-08] MEDS: Amoxicillin/Clavulanate K 875-125 MG Tab PO SCH (08:09)
[2018-11-08] MEDS: Furosemide 40 MG Tab PO SCH ×2 (08:09→13:22)
[2018-11-08] MEDS ORDERED: hydrOXYzine HCl 25 MG Tab PO PRN (13:41)
--- NOTE | 2018-11-08 13:41 | PCM.PN ---
- General Info Date of Service: 11/08/18 Subjective Update: There were no acute events overnight but this morning the patient reports increased diffuse myalgias. Abdominal pain is mild to moderate and stable. 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 He was up urinating very frequently overnight. Patient had a slightly larger oral intake than previous days but still had a net negative diuresis and slight weight loss from yesterday. Edema is a little bit better. He has diffuse itching. Functional Status: Reports: Tolerating Diet. Denies: Pain Controlled - Review of Systems General: Reports: Weakness. Denies: Fever Gastrointestinal: Reports: Abdominal Pain Musculoskeletal: Reports: Other (diffuse muscle aches) - Patient Data Vitals - Most Recent: Last Vital Signs Temp 37.2 C 11/08/18 12:00 Pulse 88 11/08/18 12:00 Resp 18 11/08/18 12:00 BP 120/52 L 11/08/18 12:00 Pulse Ox 96 11/08/18 12:00 Weight - Most Recent: 89.131 kg I&O - Last 24 Hours: Intake & Output 11/07/18 11/08/18 11/08/18 22:59 06:59 14:59 Intake Total 840 440 360 Output Total 1900 200 900 Balance -1060 240 -540 Lab Results Last 24 Hours: Laboratory Results - last 24 hr 11/07/18 11/08/18 11/08/18 Range/Units 16:50 04:52 04:52 WBC 23.9 H (4.5-11.0) K/uL RBC 3.37 L (4.30-5.90) M/uL Hgb 11.6 L (12.0-15.0) g/dL Hct 32.8 L (40.0-54.0) % MCV 97 (80-98) fL MCH 34 H (27-31) pg MCHC 35 (32-36) % Plt Count 226 (150-400) K/uL Sodium 131 L (140-148) mmol/L Potassium 3.1 L 3.8 (3.6-5.2) mmol/L Chloride 101 (100-108) mmol/L Carbon Dioxide 22 (21-32) mmol/L Anion Gap 11.8 (5.0-14.0) mmol/L BUN 17 (7-18) mg/dL Creatinine 1.1 (0.8-1.3) mg/dL Est Cr Clr Drug Dosing 81.18 mL/min Estimated GFR (MDRD) > 60 (>60) Glucose 111 H (74-106) mg/dL Calcium 7.9 L (8.5-10.1) mg/dL Med Orders - Current: Current Medications Al Hydroxide/Mg Hydroxide (Mag-Al Plus) 30 ml PO Q2H PRN PRN Reason: Epigastric pain Baclofen (Lioresal) 10 mg PO BEDTIME [facility] Last Admin: 11/07/18 22:14 Dose: 10 mg Diphenhydramine HCl (Benadryl) 25 mg PO Q6H PRN PRN Reason: Itching Last Admin: 11/03/18 21:36 Dose: 25 mg Furosemide (Lasix) 40 mg PO BIDDIURETIC [facility] Last Admin: 11/08/18 13:22 Dose: 40 mg Melatonin (Melatonin) 9 mg PO BEDTIME [facility] Last Admin: 11/07/18 22:14 Dose: 9 mg Ondansetron HCl (Zofran) 4 mg IV Q4H PRN PRN Reason: Nausea/Vomiting Oxycodone HCl (Oxycodone) 5 mg PO Q4H PRN PRN Reason: Pain (moderate 4-6) Last Admin: 11/08/18 13:21 Dose: 5 mg Pantoprazole Sodium (Protonix) 40 mg PO BIDAC [facility] Last Admin: 11/08/18 07:27 Dose: 40 mg Potassium Chloride (Klor-Con M20) 40 meq PO BID [facility] Last Admin: 11/08/18 08:08 Dose: 40 meq Senna/Docusate Sodium (Senna Plus) 1 tab PO BID PRN PRN Reason: Constipation Sodium Chloride (Saline Flush) 10 ml FLUSH ASDIRECTED PRN PRN Reason: Keep Vein Open Spironolactone (Aldactone) 25 mg PO BIDDIURETIC [facility] Last Admin: 11/08/18 13:22 Dose: 25 mg Discontinued Medications Amoxicillin/Clavulanate Potassium (Augmentin 875 Mg/125 Mg) 1 tab PO Q12H [facility] Last Admin: 11/08/18 08:09 Dose: 1 tab Bisacodyl (Dulcolax) 10 mg RECTAL ONETIME ONE Stop: 10/30/18 15:03 Last Admin: 10/30/18 16:49 Dose: 10 mg Bisacodyl (Dulcolax) Confirm Administered Dose 10 mg .ROUTE .STK-MED ONE Stop: 10/30/18 16:54 Last Admin: 10/30/18 17:45 Dose: 10 mg Bisacodyl (Dulcolax) 10 mg PO ONETIME ONE Stop: 11/02/18 10:31 Last Admin: 11/02/18 10:38 Dose: 10 mg Bisacodyl (Dulcolax) 10 mg PO ONETIME ONE Stop: 11/02/18 20:01 Last Admin: 11/02/18 19:47 Dose: 10 mg Fentanyl (Sublimaze) Confirm Administered Dose 100 mcg .ROUTE .STK-MED ONE Stop: 11/03/18 07:46 Furosemide (Lasix) 20 mg IVPUSH NOW ONE Stop: 11/03/18 12:01 Last Admin: 11/03/18 12:17 Dose: 20 mg Furosemide (Lasix) 20 mg IVPUSH ONETIME ONE Stop: 11/04/18 10:16 Last Admin: 11/04/18 11:10 Dose: 20 mg Furosemide (Lasix) 20 mg IVPUSH ONETIME ONE Stop: 11/04/18 16:01 Last Admin: 11/04/18 16:22 Dose: 20 mg Sodium Chloride (Normal Saline) 1,000 mls @ 500 mls/hr IV ASDIRECTED [facility] Last Admin: 10/30/18 13:44 Dose: 500 mls/hr Sodium Chloride (Normal Saline) 100 mls @ 3 mls/sec IV ONETIME ONE Stop: 10/30/18 14:33 Last Admin: 10/30/18 16:44 Dose: 3 mls/sec Sodium Chloride (Normal Saline) 79 mls @ 3 mls/sec IV ONETIME ONE Stop: 10/30/18 15:06 Last Admin: 10/30/18 15:09 Dose: 3 mls/sec Piperacillin/Tazobactam/ (Dextrose 3.375 gm/ Premix) 50 mls @ 100 mls/hr IV Q6H [facility] Last Admin: 10/31/18 05:38 Dose: 100 mls/hr Sodium Chloride (Normal Saline) 1,000 mls @ 125 mls/hr IV ASDIRECTED [facility] Last Admin: 10/31/18 11:23 Dose: 125 mls/hr Potassium Chloride 20 meq/ (Lidocaine HCl 2 ml/ Premix) 102 mls @ 51 mls/hr IV ONETIME ONE Stop: 10/31/18 07:59 Last Admin: 10/31/18 05:59 Dose: 51 mls/hr Potassium Chloride (Kcl 20 Meq In Water 100 Ml) Confirm Administered Dose 100 mls @ as directed .ROUTE .STK-MED ONE Stop: 10/31/18 05:55 Last Admin: 10/31/18 10:39 Dose: Not Given Piperacillin/Tazobactam/ (Dextrose 3.375 gm/ Premix) 50 mls @ 100 mls/hr IV Q6H [facility] Stop: 11/06/18 14:00 Last Admin: 11/06/18 13:02 Dose: 100 mls/hr Sodium Chloride (Normal Saline) 1,000 mls @ 500 mls/hr IV ASDIRECTED [facility] Last Admin: 11/01/18 20:50 Dose: 500 mls/hr Sodium Chloride (Normal Saline) 1,000 mls @ 125 mls/hr IV ASDIRECTED [facility] Last Admin: 11/02/18 05:52 Dose: 125 mls/hr Sodium Chloride (Normal Saline) 1,000 mls @ 50 mls/hr IV ASDIRECTED [facility] Last Admin: 11/02/18 19:47 Dose: 50 mls/hr Sodium Chloride (Normal Saline) 100 mls @ 3.5 mls/sec IV ONETIME ONE Stop: 11/02/18 12:05 Last Admin: 11/02/18 12:17 Dose: 3 mls/sec Potassium Chloride 20 meq/Lidocaine HCl 2 ml/ Sodium Chloride 112 mls @ 56 mls/ hr IV ONETIME ONE Stop: 11/07/18 09:59 Last Admin: 11/07/18 07:49 Dose: 56 mls/hr Ibuprofen (Motrin) 600 mg PO Q6H PRN PRN Reason: Fever Last Admin: 11/02/18 17:13 Dose: 600 mg Influenza Virus Vaccine (Pharmacy To Dose - Influenza Vaccine) 1 each IM ONETIME ONE Stop: 10/31/18 14:01 Last Admin: 10/31/18 15:14 Dose: Not Given Influenza Virus Vaccine (Fluzone Quad 8429-9920 Syringe) 60 mcg IM .ONCE ONE Stop: 11/01/18 10:01 Last Admin: 11/01/18 11:21 Dose: 60 mcg Iohexol (Omnipaque) 20 ml PO ASDIRECTED [facility] Last Admin: 11/02/18 12:18 Dose: 20 ml Iopamidol (Isovue-300 (61%)) 150 ml IV . DIRECTED [facility] Last Admin: 10/30/18 15:09 Dose: 128 ml Iopamidol (Isovue-300 (61%)) 128 ml IV . DIRECTED [facility] Iopamidol (Isovue-300 (61%)) 100 ml IV . DIRECTED [facility] Stop: 11/02/18 13:00 Last Admin: 11/02/18 12:23 Dose: 100 ml Midazolam HCl (Versed 1 Mg/Ml) Confirm Administered Dose 2 mg .ROUTE .STK-MED ONE Stop: 11/03/18 07:46 Pantoprazole Sodium (Protonix Iv) 40 mg IVPUSH Q12H [facility] Last Admin: 11/05/18 12:05 Dose: 40 mg Phytonadione (Aquamephyton) 5 mg PO DAILY [facility] Last Admin: 11/07/18 08:01 Dose: 5 mg Polyethylene Glycol (Miralax) 238 gm PO ONETIME ONE Stop: 11/02/18 17:01 Last Admin: 11/02/18 16:49 Dose: 238 gm Potassium Chloride (Klor-Con M20) 20 meq PO ONETIME ONE Stop: 10/31/18 05:39 Last Admin: 10/31/18 10:39 Dose: Not Given Potassium Chloride (Klor-Con M20) 40 meq PO ONETIME ONE Stop: 10/31/18 09:01 Last Admin: 10/31/18 11:22 Dose: 40 meq Potassium Chloride (Klor-Con M20) 40 meq PO ONETIME ONE Stop: 10/31/18 14:31 Last Admin: 10/31/18 15:30 Dose: 40 meq Potassium Chloride (Klor-Con M20) 40 meq PO ONETIME ONE Stop: 11/01/18 09:01 Last Admin: 11/01/18 15:31 Dose: 40 meq Potassium Chloride (Klor-Con M20) 40 meq PO ONETIME ONE Stop: 11/01/18 15:01 Last Admin: 11/01/18 15:51 Dose: 40 meq Potassium Chloride (Klor-Con M20) 40 meq PO ONETIME ONE Stop: 11/01/18 21:01 Last Admin: 11/01/18 22:02 Dose: 40 meq Potassium Chloride (Klor-Con M20) 40 meq PO ONETIME ONE Stop: 11/02/18 09:01 Last Admin: 11/02/18 09:08 Dose: 40 meq Potassium Chloride (Klor-Con M20) 40 meq PO ONETIME ONE Stop: 11/02/18 13:01 Last Admin: 11/02/18 13:07 Dose: 40 meq Potassium Chloride (Klor-Con M20) 40 meq PO ONETIME ONE Stop: 11/04/18 09:31 Last Admin: 11/04/18 11:10 Dose: 40 meq Potassium Chloride (Klor-Con M20) 40 meq PO ONETIME ONE Stop: 11/05/18 09:31 Last Admin: 11/05/18 08:45 Dose: 40 meq Propofol (Diprivan 20 Ml) Confirm Administered Dose 200 mg .ROUTE .STK-MED ONE Stop: 11/03/18 07:46 Propofol (Diprivan 20 Ml) Confirm Administered Dose 200 mg .ROUTE .STK-MED ONE Stop: 11/03/18 07:56 Sodium Chloride (Saline Flush) 10 ml FLUSH ONETIME PRN PRN Reason: PER RADIOLOGY PROTOCOL Last Admin: 10/30/18 15:09 Dose: 10 ml Sodium Chloride (Saline Flush) 10 ml FLUSH ONETIME ONE Stop: 11/02/18 12:05 Last Admin: 11/02/18 12:17 Dose: 10 ml Spironolactone (Aldactone) 25 mg PO BID [facility] Last Admin: 11/06/18 08:14 Dose: 25 mg - Exam Quality Assessment: No: Supplemental Oxygen General: Alert, Oriented, Cooperative, Mild Distress HEENT: Scleral Icterus Lungs: Normal Respiratory Effort Cardiovascular: Regular Rate, Regular Rhythm GI/Abdominal Exam: Distended. No: Soft Extremities: Pedal Edema. No: Increased Warmth Skin: Warm, Dry Psy/Mental Status: Alert, Normal Affect - Problem List Review Problem List Initiated/Reviewed/Updated: Yes - My Orders Last 24 Hours: My Active Orders 11/08/18 13:45 prednisoLONE [OraPred 15 MG/5ML Soln] 40 mg PO DAILY 11/09/18 05:00 CBC WITH AUTO DIFF [HEME] Timed COMPREHENSIVE METABOLIC PN,CMP [CHEM] Timed INR,PT,PROTHROMBIN TIME [COAG] Timed - Plan Plan:: ASSESSMENT AND PLAN Alcoholic hepatitis - complicated by significant bilirubin elevation, coagulopathy and ascites. History of chronic alcohol use and this is suspected to be the cause for his liver disease. Ferritin significantly elevated. Anti- smooth muscle antibody was mildly positive. JAQUELINE and hepatitis panel are negative. Alpha-1 antitrypsin mildly positive and ceruloplasmin was negative. CT scan showed cirrhosis. MRCP did not suggest obstruction. Bilirubin stable. Maddrey discriminant function is elevated at 43.7 suggesting he may benefit from glucocorticoids. -Trial of prednisolone -Complete alcohol abstinence -Saline lock IV -Medication for pain and nausea as needed -Outpatient referral to gastroenterology Scheduled for December 10 ACUTE CHOLECYSTITIS, suspected - evidence of gallbladder inflammation noted on MRCP as well as ultrasound. White blood cell count remains elevated but he does not have significant pain or fevers. No obvious indication for surgical intervention at this time. -Continue conservative management -Discontinue antibiotics with completion of treatment ASCITES - slow improvement with diuresis. -Spironolactone 25 mg by mouth twice daily -Furosemide 40 mg twice daily GASTRITIS AND DUODENITIS - hemoglobin stable. No significant pain issues in tolerating diet. -Protonix 40 mg twice daily -Surgical follow-up per Dr. Lowery CHRONIC ALCOHOL DEPENDENCE -Absolute Alcohol cessation -Outpatient alcohol treatment MAINTENANCE ISSUES -DVT prophylaxis; mechanical with elevated INR and recent bleeding -GI prophylaxis; not indicated -Oneal catheter; not indicated -Nutrition; regular diet DISPOSITION - anticipate discharge to home after the hospital stay. Magdaleno Hutchinson MD
[2018-11-08] MEDS: prednisoLONE 15 MG/5 ML Soln UD Cup PO SCH (14:57)
[2018-11-08] MEDS: Melatonin 3 MG Tab PO SCH (20:27)
[2018-11-08] MEDS: Baclofen 10 MG Tab PO SCH (20:28)
[2018-11-09] MEDS: oxyCODONE 5 MG Tab PO PRN ×2 (04:51→20:25)
[2018-11-09] MEDS: Potassium Chloride 20 MEQ Tab.ER PO SCH ×2 (08:49→20:18)
[2018-11-09] MEDS: prednisoLONE 15 MG/5 ML Soln UD Cup PO SCH (08:49)
[2018-11-09] MEDS: Pantoprazole 40 MG Tab.CR PO SCH ×2 (08:49→15:35)
[2018-11-09] MEDS: Furosemide 40 MG Tab PO SCH ×2 (08:49→14:08)
[2018-11-09] MEDS: Spironolactone 25 MG Tab PO SCH ×2 (08:49→14:08)
[2018-11-09] MEDS ORDERED: hydrOXYzine HCl 25 MG Tab PO PRN (13:18)
--- NOTE | 2018-11-09 13:20 | PCM.PN ---
- General Info Date of Service: 11/09/18 Subjective Update: There were no acute events overnight. Diffuse myalgias present yesterday have improved. Appetite has been good. He has been up and walking around. No fevers. No blood in the stool. Energy seems to be slowly improving. Laboratory studies stable. Edema stable to slightly improved. Functional Status: Reports: Pain Controlled, Tolerating Diet - Review of Systems General: Denies: Fever Cardiovascular: Reports: Edema Gastrointestinal: Reports: Abdominal Pain - Patient Data Vitals - Most Recent: Last Vital Signs Temp 36.2 C 11/09/18 13:03 Pulse 70 11/09/18 13:03 Resp 16 11/09/18 13:03 BP 120/82 11/09/18 13:03 Pulse Ox 98 11/09/18 13:03 Weight - Most Recent: 88.36 kg I&O - Last 24 Hours: Intake & Output 11/08/18 11/09/18 11/09/18 22:59 06:59 14:59 Intake Total 240 240 Output Total 750 850 250 Balance -969 -850 -10 Lab Results Last 24 Hours: Laboratory Results - last 24 hr 11/09/18 11/09/18 11/09/18 Range/Units 05:15 05:15 05:15 WBC 23.5 H (4.5-11.0) K/uL RBC 3.53 L (4.30-5.90) M/uL Hgb 12.3 (12.0-15.0) g/dL Hct 34.8 L (40.0-54.0) % MCV 99 H (80-98) fL MCH 35 H (27-31) pg MCHC 35 (32-36) % Plt Count 220 (150-400) K/uL Neut % (Auto) 91 H (36-66) % Lymph % (Auto) 4 L (24-44) % [place] % (Auto) 5 (2-6) % Eos % (Auto) 0 L (2-4) % Baso % (Auto) 0 (0-1) % PT 15.6 H (9.5-12.0) sec INR 1.45 H (0.80-1.20) Sodium 134 L (140-148) mmol/L Potassium 4.1 (3.6-5.2) mmol/L Chloride 101 (100-108) mmol/L Carbon Dioxide 24 (21-32) mmol/L Anion Gap 13.1 (5.0-14.0) mmol/L BUN 19 H (7-18) mg/dL Creatinine 1.1 (0.8-1.3) mg/dL Est Cr Clr Drug Dosing 81.18 mL/min Estimated GFR (MDRD) > 60 (>60) Glucose 113 H (74-106) mg/dL Calcium 8.3 L (8.5-10.1) mg/dL Total Bilirubin 20.5 H (0.2-1.0) mg/dL AST 164 H (15-37) U/L ALT 69 (12-78) U/L Alkaline Phosphatase 240 H (46-116) U/L Total Protein 6.5 (6.4-8.2) g/dL Albumin 1.3 L (3.4-5.0) g/dL Globulin 5.2 H (2.3-3.5) g/dL Albumin/Globulin Ratio 0.3 L (1.2-2.2) Med Orders - Current: Current Medications Al Hydroxide/Mg Hydroxide (Mag-Al Plus) 30 ml PO Q2H PRN PRN Reason: Epigastric pain Baclofen (Lioresal) 10 mg PO BEDTIME [facility] Last Admin: 11/08/18 20:28 Dose: 10 mg Furosemide (Lasix) 40 mg PO [facility]IDDIURETIC [facility] Last Admin: 11/09/18 08:49 Dose: 40 mg Hydroxyzine HCl (Atarax) 50 mg PO Q6H PRN PRN Reason: Itching Melatonin (Melatonin) 9 mg PO BEDTIME [facility] Last Admin: 11/08/18 20:27 Dose: 9 mg Ondansetron HCl (Zofran) 4 mg IV Q4H PRN PRN Reason: Nausea/Vomiting Oxycodone HCl (Oxycodone) 5 mg PO Q4H PRN PRN Reason: Pain (moderate 4-6) Last Admin: 11/09/18 04:51 Dose: 5 mg Pantoprazole Sodium (Protonix) 40 mg PO BIDAC [facility] Last Admin: 11/09/18 08:49 Dose: 40 mg Potassium Chloride (Klor-Con M20) 40 meq PO BID [facility] Last Admin: 11/09/18 08:49 Dose: 40 meq Prednisolone (Orapred 15 Mg/5ml Soln) 40 mg PO DAILY [facility] Last Admin: 11/09/18 08:49 Dose: 40 mg Senna/Docusate Sodium (Senna Plus) 1 tab PO BID PRN PRN Reason: Constipation Sodium Chloride (Saline Flush) 10 ml FLUSH ASDIRECTED PRN PRN Reason: Keep Vein Open Spironolactone (Aldactone) 25 mg PO [facility]URE[facility]IC [facility] Last Admin: 11/09/18 08:49 Dose: 25 mg Discontinued Medications Amoxicillin/Clavulanate Potassium (Augmentin 875 Mg/125 Mg) 1 tab PO Q12H [facility] Last Admin: 11/08/18 08:09 Dose: 1 tab Bisacodyl (Dulcolax) 10 mg RECTAL ONETIME ONE Stop: 10/30/18 15:03 Last Admin: 10/30/18 16:49 Dose: 10 mg Bisacodyl (Dulcolax) Confirm Administered Dose 10 mg .ROUTE .STK-MED ONE Stop: 10/30/18 16:54 Last Admin: 10/30/18 17:45 Dose: 10 mg Bisacodyl (Dulcolax) 10 mg PO ONETIME ONE Stop: 11/02/18 10:31 Last Admin: 11/02/18 10:38 Dose: 10 mg Bisacodyl (Dulcolax) 10 mg PO ONETIME ONE Stop: 11/02/18 20:01 Last Admin: 11/02/18 19:47 Dose: 10 mg Diphenhydramine HCl (Benadryl) 25 mg PO Q6H PRN PRN Reason: Itching Last Admin: 11/03/18 21:36 Dose: 25 mg Fentanyl (Sublimaze) Confirm Administered Dose 100 mcg .ROUTE .STK-MED ONE Stop: 11/03/18 07:46 Furosemide (Lasix) 20 mg IVPUSH NOW ONE Stop: 11/03/18 12:01 Last Admin: 11/03/18 12:17 Dose: 20 mg Furosemide (Lasix) 20 mg IVPUSH ONETIME ONE Stop: 11/04/18 10:16 Last Admin: 11/04/18 11:10 Dose: 20 mg Furosemide (Lasix) 20 mg IVPUSH ONETIME ONE Stop: 11/04/18 16:01 Last Admin: 11/04/18 16:22 Dose: 20 mg Hydroxyzine HCl (Atarax) 25 mg PO Q6H PRN PRN Reason: Itching Last Admin: 11/08/18 15:47 Dose: 25 mg Sodium Chloride (Normal Saline) 1,000 mls @ 500 mls/hr IV ASDIRECTED [facility] Last Admin: 10/30/18 13:44 Dose: 500 mls/hr Sodium Chloride (Normal Saline) 100 mls @ 3 mls/sec IV ONETIME ONE Stop: 10/30/18 14:33 Last Admin: 10/30/18 16:44 Dose: 3 mls/sec Sodium Chloride (Normal Saline) 79 mls @ 3 mls/sec IV ONETIME ONE Stop: 10/30/18 15:06 Last Admin: 10/30/18 15:09 Dose: 3 mls/sec Piperacillin/Tazobactam/ (Dextrose 3.375 gm/ Premix) 50 mls @ 100 mls/hr IV Q6H [facility] Last Admin: 10/31/18 05:38 Dose: 100 mls/hr Sodium Chloride (Normal Saline) 1,000 mls @ 125 mls/hr IV ASDIRECTED [facility] Last Admin: 10/31/18 11:23 Dose: 125 mls/hr Potassium Chloride 20 meq/ (Lidocaine HCl 2 ml/ Premix) 102 mls @ 51 mls/hr IV ONETIME ONE Stop: 10/31/18 07:59 Last Admin: 10/31/18 05:59 Dose: 51 mls/hr Potassium Chloride (Kcl 20 Meq In Water 100 Ml) Confirm Administered Dose 100 mls @ as directed .ROUTE .STK-MED ONE Stop: 10/31/18 05:55 Last Admin: 10/31/18 10:39 Dose: Not Given Piperacillin/Tazobactam/ (Dextrose 3.375 gm/ Premix) 50 mls @ 100 mls/hr IV Q6H [facility] Stop: 11/06/18 14:00 Last Admin: 11/06/18 13:02 Dose: 100 mls/hr Sodium Chloride (Normal Saline) 1,000 mls @ 500 mls/hr IV ASDIRECTED [facility] Last Admin: 11/01/18 20:50 Dose: 500 mls/hr Sodium Chloride (Normal Saline) 1,000 mls @ 125 mls/hr IV ASDIRECTED [facility] Last Admin: 11/02/18 05:52 Dose: 125 mls/hr Sodium Chloride (Normal Saline) 1,000 mls @ 50 mls/hr IV ASDIRECTED [facility] Last Admin: 11/02/18 19:47 Dose: 50 mls/hr Sodium Chloride (Normal Saline) 100 mls @ 3.5 mls/sec IV ONETIME ONE Stop: 11/02/18 12:05 Last Admin: 11/02/18 12:17 Dose: 3 mls/sec Potassium Chloride 20 meq/Lidocaine HCl 2 ml/ Sodium Chloride 112 mls @ 56 mls/ hr IV ONETIME ONE Stop: 11/07/18 09:59 Last Admin: 11/07/18 07:49 Dose: 56 mls/hr Ibuprofen (Motrin) 600 mg PO Q6H PRN PRN Reason: Fever Last Admin: 11/02/18 17:13 Dose: 600 mg Influenza Virus Vaccine (Pharmacy To Dose - Influenza Vaccine) 1 each IM ONETIME ONE Stop: 10/31/18 14:01 Last Admin: 10/31/18 15:14 Dose: Not Given Influenza Virus Vaccine (Fluzone Quad 1139-5451 Syringe) 60 mcg IM .ONCE ONE Stop: 11/01/18 10:01 Last Admin: 11/01/18 11:21 Dose: 60 mcg Iohexol (Omnipaque) 20 ml PO ASDIRECTED [facility] Last Admin: 11/02/18 12:18 Dose: 20 ml Iopamidol (Isovue-300 (61%)) 150 ml IV . DIRECTED [facility] Last Admin: 10/30/18 15:09 Dose: 128 ml Iopamidol (Isovue-300 (61%)) 128 ml IV . DIRECTED [facility] Iopamidol (Isovue-300 (61%)) 100 ml IV . DIRECTED [facility] Stop: 11/02/18 13:00 Last Admin: 11/02/18 12:23 Dose: 100 ml Midazolam HCl (Versed 1 Mg/Ml) Confirm Administered Dose 2 mg .ROUTE .STK-MED ONE Stop: 11/03/18 07:46 Pantoprazole Sodium (Protonix Iv) 40 mg IVPUSH Q12H [facility] Last Admin: 11/05/18 12:05 Dose: 40 mg Phytonadione (Aquamephyton) 5 mg PO DAILY [facility] Last Admin: 11/07/18 08:01 Dose: 5 mg Polyethylene Glycol (Miralax) 238 gm PO ONETIME ONE Stop: 11/02/18 17:01 Last Admin: 11/02/18 16:49 Dose: 238 gm Potassium Chloride (Klor-Con M20) 20 meq PO ONETIME ONE Stop: 10/31/18 05:39 Last Admin: 10/31/18 10:39 Dose: Not Given Potassium Chloride (Klor-Con M20) 40 meq PO ONETIME ONE Stop: 10/31/18 09:01 Last Admin: 10/31/18 11:22 Dose: 40 meq Potassium Chloride (Klor-Con M20) 40 meq PO ONETIME ONE Stop: 10/31/18 14:31 Last Admin: 10/31/18 15:30 Dose: 40 meq Potassium Chloride (Klor-Con M20) 40 meq PO ONETIME ONE Stop: 11/01/18 09:01 Last Admin: 11/01/18 15:31 Dose: 40 meq Potassium Chloride (Klor-Con M20) 40 meq PO ONETIME ONE Stop: 11/01/18 15:01 Last Admin: 11/01/18 15:51 Dose: 40 meq Potassium Chloride (Klor-Con M20) 40 meq PO ONETIME ONE Stop: 11/01/18 21:01 Last Admin: 11/01/18 22:02 Dose: 40 meq Potassium Chloride (Klor-Con M20) 40 meq PO ONETIME ONE Stop: 11/02/18 09:01 Last Admin: 11/02/18 09:08 Dose: 40 meq Potassium Chloride (Klor-Con M20) 40 meq PO ONETIME ONE Stop: 11/02/18 13:01 Last Admin: 11/02/18 13:07 Dose: 40 meq Potassium Chloride (Klor-Con M20) 40 meq PO ONETIME ONE Stop: 11/04/18 09:31 Last Admin: 11/04/18 11:10 Dose: 40 meq Potassium Chloride (Klor-Con M20) 40 meq PO ONETIME ONE Stop: 11/05/18 09:31 Last Admin: 11/05/18 08:45 Dose: 40 meq Propofol (Diprivan 20 Ml) Confirm Administered Dose 200 mg .ROUTE .STK-MED ONE Stop: 11/03/18 07:46 Propofol (Diprivan 20 Ml) Confirm Administered Dose 200 mg .ROUTE .STK-MED ONE Stop: 11/03/18 07:56 Sodium Chloride (Saline Flush) 10 ml FLUSH ONETIME PRN PRN Reason: PER RADIOLOGY PROTOCOL Last Admin: 10/30/18 15:09 Dose: 10 ml Sodium Chloride (Saline Flush) 10 ml FLUSH ONETIME ONE Stop: 11/02/18 12:05 Last Admin: 11/02/18 12:17 Dose: 10 ml Spironolactone (Aldactone) 25 mg PO BID [facility] Last Admin: 11/06/18 08:14 Dose: 25 mg - Exam Quality Assessment: No: Supplemental Oxygen General: Alert, Oriented, Cooperative, No Acute Distress HEENT: Scleral Icterus Lungs: Normal Respiratory Effort GI/Abdominal Exam: Distended. No: Soft Extremities: Pedal Edema Skin: Other (jaundice) Psy/Mental Status: Alert, Normal Affect - Problem List Review Problem List Initiated/Reviewed/Updated: Yes - My Orders Last 24 Hours: My Active Orders 11/08/18 13:45 prednisoLONE [OraPred 15 MG/5ML Soln] 40 mg PO DAILY 11/09/18 13:18 hydrOXYzine HCl [Atarax] 50 mg PO Q6H PRN 11/10/18 05:00 BASIC METABOLIC PANEL,BMP [CHEM] Timed CBC W/O DIFF,HEMOGRAM [HEME] Timed (1) - Plan Plan:: ASSESSMENT AND PLAN Alcoholic hepatitis - complicated by significant bilirubin elevation, coagulopathy and ascites. History of chronic alcohol use and this is suspected to be the cause for his liver disease. Ferritin significantly elevated. Anti- smooth muscle antibody was mildly positive. JAQUELINE and hepatitis panel are negative. Alpha-1 antitrypsin mildly positive and ceruloplasmin was negative. CT scan showed cirrhosis. MRCP did not suggest obstruction. Bilirubin stable. Maddrey discriminant function is elevated at 43.7 suggesting he may benefit from glucocorticoids. -Trial of prednisolone -Complete alcohol abstinence -Saline lock IV -Medication for pain and nausea as needed -Outpatient referral to gastroenterology Scheduled for December 10 ACUTE CHOLECYSTITIS, suspected - evidence of gallbladder inflammation noted on MRCP as well as ultrasound. White blood cell count remains elevated but he does not have significant pain or fevers. No obvious indication for surgical intervention at this time. -Continue conservative management -Discontinue antibiotics with completion of treatment ASCITES - slow improvement with diuresis. -Spironolactone 25 mg by mouth twice daily -Furosemide 40 mg twice daily GASTRITIS AND DUODENITIS - hemoglobin stable. No significant pain issues in tolerating diet. -Protonix 40 mg twice daily CHRONIC ALCOHOL DEPENDENCE -Absolute Alcohol cessation -Outpatient alcohol treatment MAINTENANCE ISSUES -DVT prophylaxis; mechanical with elevated INR and recent bleeding -GI prophylaxis; not indicated -Oneal catheter; not indicated -Nutrition; regular diet DISPOSITION - anticipate discharge to home after the hospital stay, hopefully tomorrow or the next day Magdaleno Hutchinson MD
[2018-11-09] MEDS: Melatonin 3 MG Tab PO SCH (20:19)
[2018-11-09] MEDS: Baclofen 10 MG Tab PO SCH (20:19)
[2018-11-10] MEDS: Spironolactone 25 MG Tab PO SCH ×2 (07:22→14:45)
[2018-11-10] MEDS: Pantoprazole 40 MG Tab.CR PO SCH ×2 (07:22→15:38)
[2018-11-10] MEDS: Furosemide 40 MG Tab PO SCH ×2 (07:23→14:45)
[2018-11-10] MEDS: Potassium Chloride 20 MEQ Tab.ER PO SCH ×2 (08:22→21:01)
[2018-11-10] MEDS: prednisoLONE 15 MG/5 ML Soln UD Cup PO SCH (08:22)
--- NOTE | 2018-11-10 11:53 | PCM.PN ---
- General Info Date of Service: 11/10/18 Subjective Update: Igor was admitted way back on November 30 for management of hepatic cirrhosis and alcoholic hepatitis. He has had a very prolonged hospital stay. Over the past week we have worked on diuresing his edema to improve abdominal distention and comfort as well as lower extremity edema. He was also started on steroids to help manage alcoholic hepatitis with a very elevated discriminant function ( 43.7). He has been slowly improving with improvement in his edema and abdominal distention and pain. He has not had any fevers. Rectal bleeding has stopped. Energy has been slowly improving. Antibiotics have been discontinued. White count has been stable to slightly increased. Bilirubin has been stable. Functional Status: Reports: Pain Controlled, Tolerating Diet - Review of Systems General: Denies: Fever Gastrointestinal: Reports: Abdominal Pain - Patient Data Vitals - Most Recent: Last Vital Signs Temp 36.2 C 11/10/18 07:37 Pulse 63 11/10/18 07:37 Resp 16 11/10/18 07:37 BP 111/73 11/10/18 07:37 Pulse Ox 98 11/10/18 07:37 Weight - Most Recent: 85.548 kg I&O - Last 24 Hours: Intake & Output 11/09/18 11/10/18 11/10/18 22:59 06:59 14:59 Intake Total 370 Output Total 4019 760 0513 Balance -1580 -600 -1650 Lab Results Last 24 Hours: Laboratory Results - last 24 hr 11/10/18 11/10/18 Range/Units 04:41 04:41 WBC 27.7 H (4.5-11.0) K/uL RBC 3.43 L (4.30-5.90) M/uL Hgb 11.9 L (12.0-15.0) g/dL Hct 33.9 L (40.0-54.0) % MCV 99 H (80-98) fL MCH 35 H (27-31) pg MCHC 35 (32-36) % Plt Count 210 (150-400) K/uL Sodium 136 L (140-148) mmol/L Potassium 4.0 (3.6-5.2) mmol/L Chloride 103 (100-108) mmol/L Carbon Dioxide 22 (21-32) mmol/L Anion Gap 15.0 H (5.0-14.0) mmol/L BUN 23 H (7-18) mg/dL Creatinine 1.0 (0.8-1.3) mg/dL Est Cr Clr Drug Dosing 89.30 mL/min Estimated GFR (MDRD) > 60 (>60) Glucose 138 H (74-106) mg/dL Calcium 8.0 L (8.5-10.1) mg/dL Med Orders - Current: Current Medications Al Hydroxide/Mg Hydroxide (Mag-Al Plus) 30 ml PO Q2H PRN PRN Reason: Epigastric pain Baclofen (Lioresal) 10 mg PO BEDTIME [facility] Last Admin: 11/09/18 20:19 Dose: 10 mg Furosemide (Lasix) 40 mg PO BIDDIURETIC [facility] Last Admin: 11/10/18 07:23 Dose: 40 mg Hydroxyzine HCl (Atarax) 50 mg PO Q6H PRN PRN Reason: Itching Melatonin (Melatonin) 9 mg PO BEDTIME [facility] Last Admin: 11/09/18 20:19 Dose: 9 mg Ondansetron HCl (Zofran) 4 mg IV Q4H PRN PRN Reason: Nausea/Vomiting Oxycodone HCl (Oxycodone) 5 mg PO Q4H PRN PRN Reason: Pain (moderate 4-6) Last Admin: 11/09/18 20:25 Dose: 5 mg Pantoprazole Sodium (Protonix) 40 mg PO BIDAC [facility] Last Admin: 11/10/18 07:22 Dose: 40 mg Potassium Chloride (Klor-Con M20) 40 meq PO BID [facility] Last Admin: 11/10/18 08:22 Dose: 40 meq Prednisolone (Orapred 15 Mg/5ml Soln) 40 mg PO DAILY [facility] Last Admin: 11/10/18 08:22 Dose: 40 mg Senna/Docusate Sodium (Senna Plus) 1 tab PO BID PRN PRN Reason: Constipation Sodium Chloride (Saline Flush) 10 ml FLUSH ASDIRECTED PRN PRN Reason: Keep Vein Open Spironolactone (Aldactone) 25 mg PO BIDDIURETIC [facility] Last Admin: 11/10/18 07:22 Dose: 25 mg Discontinued Medications Amoxicillin/Clavulanate Potassium (Augmentin 875 Mg/125 Mg) 1 tab PO Q12H [facility] Last Admin: 11/08/18 08:09 Dose: 1 tab Bisacodyl (Dulcolax) 10 mg RECTAL ONETIME ONE Stop: 10/30/18 15:03 Last Admin: 10/30/18 16:49 Dose: 10 mg Bisacodyl (Dulcolax) Confirm Administered Dose 10 mg .ROUTE .STK-MED ONE Stop: 10/30/18 16:54 Last Admin: 10/30/18 17:45 Dose: 10 mg Bisacodyl (Dulcolax) 10 mg PO ONETIME ONE Stop: 11/02/18 10:31 Last Admin: 11/02/18 10:38 Dose: 10 mg Bisacodyl (Dulcolax) 10 mg PO ONETIME ONE Stop: 11/02/18 20:01 Last Admin: 11/02/18 19:47 Dose: 10 mg Diphenhydramine HCl (Benadryl) 25 mg PO Q6H PRN PRN Reason: Itching Last Admin: 11/03/18 21:36 Dose: 25 mg Fentanyl (Sublimaze) Confirm Administered Dose 100 mcg .ROUTE .STK-MED ONE Stop: 11/03/18 07:46 Furosemide (Lasix) 20 mg IVPUSH NOW ONE Stop: 11/03/18 12:01 Last Admin: 11/03/18 12:17 Dose: 20 mg Furosemide (Lasix) 20 mg IVPUSH ONETIME ONE Stop: 11/04/18 10:16 Last Admin: 11/04/18 11:10 Dose: 20 mg Furosemide (Lasix) 20 mg IVPUSH ONETIME ONE Stop: 11/04/18 16:01 Last Admin: 11/04/18 16:22 Dose: 20 mg Hydroxyzine HCl (Atarax) 25 mg PO Q6H PRN PRN Reason: Itching Last Admin: 11/08/18 15:47 Dose: 25 mg Sodium Chloride (Normal Saline) 1,000 mls @ 500 mls/hr IV ASDIRECTED [facility] Last Admin: 10/30/18 13:44 Dose: 500 mls/hr Sodium Chloride (Normal Saline) 100 mls @ 3 mls/sec IV ONETIME ONE Stop: 10/30/18 14:33 Last Admin: 10/30/18 16:44 Dose: 3 mls/sec Sodium Chloride (Normal Saline) 79 mls @ 3 mls/sec IV ONETIME ONE Stop: 10/30/18 15:06 Last Admin: 10/30/18 15:09 Dose: 3 mls/sec Piperacillin/Tazobactam/ (Dextrose 3.375 gm/ Premix) 50 mls @ 100 mls/hr IV Q6H [facility] Last Admin: 10/31/18 05:38 Dose: 100 mls/hr Sodium Chloride (Normal Saline) 1,000 mls @ 125 mls/hr IV ASDIRECTED [facility] Last Admin: 10/31/18 11:23 Dose: 125 mls/hr Potassium Chloride 20 meq/ (Lidocaine HCl 2 ml/ Premix) 102 mls @ 51 mls/hr IV ONETIME ONE Stop: 10/31/18 07:59 Last Admin: 10/31/18 05:59 Dose: 51 mls/hr Potassium Chloride (Kcl 20 Meq In Water 100 Ml) Confirm Administered Dose 100 mls @ as directed .ROUTE .STK-MED ONE Stop: 10/31/18 05:55 Last Admin: 10/31/18 10:39 Dose: Not Given Piperacillin/Tazobactam/ (Dextrose 3.375 gm/ Premix) 50 mls @ 100 mls/hr IV Q6H [facility] Stop: 11/06/18 14:00 Last Admin: 11/06/18 13:02 Dose: 100 mls/hr Sodium Chloride (Normal Saline) 1,000 mls @ 500 mls/hr IV ASDIRECTED [facility] Last Admin: 11/01/18 20:50 Dose: 500 mls/hr Sodium Chloride (Normal Saline) 1,000 mls @ 125 mls/hr IV ASDIRECTED [facility] Last Admin: 11/02/18 05:52 Dose: 125 mls/hr Sodium Chloride (Normal Saline) 1,000 mls @ 50 mls/hr IV ASDIRECTED [facility] Last Admin: 11/02/18 19:47 Dose: 50 mls/hr Sodium Chloride (Normal Saline) 100 mls @ 3.5 mls/sec IV ONETIME ONE Stop: 11/02/18 12:05 Last Admin: 11/02/18 12:17 Dose: 3 mls/sec Potassium Chloride 20 meq/Lidocaine HCl 2 ml/ Sodium Chloride 112 mls @ 56 mls/ hr IV ONETIME ONE Stop: 11/07/18 09:59 Last Admin: 11/07/18 07:49 Dose: 56 mls/hr Ibuprofen (Motrin) 600 mg PO Q6H PRN PRN Reason: Fever Last Admin: 11/02/18 17:13 Dose: 600 mg Influenza Virus Vaccine (Pharmacy To Dose - Influenza Vaccine) 1 each IM ONETIME ONE Stop: 10/31/18 14:01 Last Admin: 10/31/18 15:14 Dose: Not Given Influenza Virus Vaccine (Fluzone Quad 6330-2308 Syringe) 60 mcg IM .ONCE ONE Stop: 11/01/18 10:01 Last Admin: 11/01/18 11:21 Dose: 60 mcg Iohexol (Omnipaque) 20 ml PO ASDIRECTED [facility] Last Admin: 11/02/18 12:18 Dose: 20 ml Iopamidol (Isovue-300 (61%)) 150 ml IV . DIRECTED [facility] Last Admin: 10/30/18 15:09 Dose: 128 ml Iopamidol (Isovue-300 (61%)) 128 ml IV . DIRECTED [facility] Iopamidol (Isovue-300 (61%)) 100 ml IV . DIRECTED [facility] Stop: 11/02/18 13:00 Last Admin: 11/02/18 12:23 Dose: 100 ml Midazolam HCl (Versed 1 Mg/Ml) Confirm Administered Dose 2 mg .ROUTE .STK-MED ONE Stop: 11/03/18 07:46 Pantoprazole Sodium (Protonix Iv) 40 mg IVPUSH Q12H [facility] Last Admin: 11/05/18 12:05 Dose: 40 mg Phytonadione (Aquamephyton) 5 mg PO DAILY [facility] Last Admin: 11/07/18 08:01 Dose: 5 mg Polyethylene Glycol (Miralax) 238 gm PO ONETIME ONE Stop: 11/02/18 17:01 Last Admin: 11/02/18 16:49 Dose: 238 gm Potassium Chloride (Klor-Con M20) 20 meq PO ONETIME ONE Stop: 10/31/18 05:39 Last Admin: 10/31/18 10:39 Dose: Not Given Potassium Chloride (Klor-Con M20) 40 meq PO ONETIME ONE Stop: 10/31/18 09:01 Last Admin: 10/31/18 11:22 Dose: 40 meq Potassium Chloride (Klor-Con M20) 40 meq PO ONETIME ONE Stop: 10/31/18 14:31 Last Admin: 10/31/18 15:30 Dose: 40 meq Potassium Chloride (Klor-Con M20) 40 meq PO ONETIME ONE Stop: 11/01/18 09:01 Last Admin: 11/01/18 15:31 Dose: 40 meq Potassium Chloride (Klor-Con M20) 40 meq PO ONETIME ONE Stop: 11/01/18 15:01 Last Admin: 11/01/18 15:51 Dose: 40 meq Potassium Chloride (Klor-Con M20) 40 meq PO ONETIME ONE Stop: 11/01/18 21:01 Last Admin: 11/01/18 22:02 Dose: 40 meq Potassium Chloride (Klor-Con M20) 40 meq PO ONETIME ONE Stop: 11/02/18 09:01 Last Admin: 11/02/18 09:08 Dose: 40 meq Potassium Chloride (Klor-Con M20) 40 meq PO ONETIME ONE Stop: 11/02/18 13:01 Last Admin: 11/02/18 13:07 Dose: 40 meq Potassium Chloride (Klor-Con M20) 40 meq PO ONETIME ONE Stop: 11/04/18 09:31 Last Admin: 11/04/18 11:10 Dose: 40 meq Potassium Chloride (Klor-Con M20) 40 meq PO ONETIME ONE Stop: 11/05/18 09:31 Last Admin: 11/05/18 08:45 Dose: 40 meq Propofol (Diprivan 20 Ml) Confirm Administered Dose 200 mg .ROUTE .STK-MED ONE Stop: 11/03/18 07:46 Propofol (Diprivan 20 Ml) Confirm Administered Dose 200 mg .ROUTE .STK-MED ONE Stop: 11/03/18 07:56 Sodium Chloride (Saline Flush) 10 ml FLUSH ONETIME PRN PRN Reason: PER RADIOLOGY PROTOCOL Last Admin: 10/30/18 15:09 Dose: 10 ml Sodium Chloride (Saline Flush) 10 ml FLUSH ONETIME ONE Stop: 11/02/18 12:05 Last Admin: 11/02/18 12:17 Dose: 10 ml Spironolactone (Aldactone) 25 mg PO BID [facility] Last Admin: 11/06/18 08:14 Dose: 25 mg - Exam Quality Assessment: No: Supplemental Oxygen General: Alert, Oriented, Cooperative, No Acute Distress Lungs: Normal Respiratory Effort GI/Abdominal Exam: Distended. No: Soft Extremities: Pedal Edema. No: Increased Warmth Skin: Warm, Dry Psy/Mental Status: Alert, Normal Affect - Problem List Review Problem List Initiated/Reviewed/Updated: Yes - My Orders Last 24 Hours: My Active Orders 11/09/18 13:18 hydrOXYzine HCl [Atarax] 50 mg PO Q6H PRN 11/11/18 05:00 CBC W/O DIFF,HEMOGRAM [HEME] Timed (1) COMPREHENSIVE METABOLIC PN,CMP [CHEM] Timed - Plan Plan:: ASSESSMENT AND PLAN Alcoholic hepatitis - complicated by significant bilirubin elevation, coagulopathy and ascites. History of chronic alcohol use and this is suspected to be the cause for his liver disease. Ferritin significantly elevated. Anti- smooth muscle antibody was mildly positive. JAQUELINE and hepatitis panel are negative. Alpha-1 antitrypsin mildly positive and ceruloplasmin was negative. CT scan showed cirrhosis. MRCP did not suggest obstruction. Bilirubin stable. Maddrey discriminant function is elevated at 43.7 suggesting he may benefit from glucocorticoids. -Trial of prednisolone (40 mg x28 days if helping then taper) -Complete alcohol abstinence -Saline lock IV -Medication for pain and nausea as needed -Outpatient referral to gastroenterology Scheduled for December 10 ACUTE CHOLECYSTITIS, suspected - evidence of gallbladder inflammation noted on MRCP as well as ultrasound. White blood cell count remains elevated but he does not have significant pain or fevers. No obvious indication for surgical intervention at this time. -Continue conservative management -Discontinue antibiotics with completion of treatment ASCITES - slow improvement with diuresis. -Spironolactone 25 mg by mouth twice daily -Furosemide 40 mg twice daily GASTRITIS AND DUODENITIS - hemoglobin stable. No significant pain issues in tolerating diet. -Protonix 40 mg twice daily CHRONIC ALCOHOL DEPENDENCE - patient is hoping to utilize community resources rather than inpatient treatment. -Absolute Alcohol cessation -Outpatient alcohol treatment MAINTENANCE ISSUES -DVT prophylaxis; mechanical with elevated INR and recent bleeding -GI prophylaxis; not indicated -Oneal catheter; not indicated -Nutrition; regular diet DISPOSITION - anticipate discharge to home after the hospital stay, hopefully tomorrow Magdaleno Hutchinson MD
[2018-11-10] MEDS: oxyCODONE 5 MG Tab PO PRN ×2 (12:28→21:00)
[2018-11-10] MEDS: Melatonin 3 MG Tab PO SCH (21:02)
[2018-11-10] MEDS: Baclofen 10 MG Tab PO SCH (21:02)
[2018-11-11] MEDS: oxyCODONE 5 MG Tab PO PRN ×2 (01:33→05:35)
[2018-11-11] MEDS: Pantoprazole 40 MG Tab.CR PO SCH (07:37)
[2018-11-11] MEDS: Spironolactone 25 MG Tab PO SCH ×2 (07:37→14:04)
[2018-11-11] MEDS: Furosemide 40 MG Tab PO SCH ×2 (07:37→14:04)
[2018-11-11 07:40] VITALS: BP 113/70
[2018-11-11] MEDS: prednisoLONE 15 MG/5 ML Soln UD Cup PO SCH (09:17)
[2018-11-11] MEDS: Potassium Chloride 20 MEQ Tab.ER PO SCH (09:17)
--- NOTE | 2018-11-11 13:57 | PCM.DCSUM1 ---
Discharge Summary - Hospital Course Brief History: Mr. Mckee is a 48-year-old gentleman who was admitted through the emergency department with weakness, nausea, and severe jaundice. Secondary to hepatic cirrhosis and acute alcoholic hepatitis. - Discharge Data Discharge Date: 11/11/18 Discharge Disposition: Home, Self-Care 01 Condition: Fair - Discharge Diagnosis/Problem(s) (1) Hepatic cirrhosis SNOMED Code(s): 66813902 ICD Code: K74.60 - UNSPECIFIED CIRRHOSIS OF LIVER Status: Acute Current Visit: Yes (2) Alcoholic hepatitis with ascites SNOMED Code(s): 597989391 ICD Code: K70.11 - ALCOHOLIC HEPATITIS WITH ASCITES Status: Acute Current Visit: Yes (3) Chronic alcohol abuse SNOMED Code(s): 730222143 ICD Code: F10.10 - ALCOHOL ABUSE, UNCOMPLICATED Status: Chronic Current Visit: No (4) Esophageal varices determined by endoscopy SNOMED Code(s): 13010806, 912500614 ICD Code: I85.00 - ESOPHAGEAL VARICES WITHOUT BLEEDING Status: Acute Current Visit: Yes (5) Gastritis and duodenitis SNOMED Code(s): 030030542 ICD Code: K29.90 - GASTRODUODENITIS, UNSPECIFIED, WITHOUT BLEEDING Status: Acute Current Visit: Yes (6) Cholecystitis, acute SNOMED Code(s): 16041291 ICD Code: K81.0 - ACUTE CHOLECYSTITIS Status: Acute Current Visit: Yes - Patient Summary/Data Consults: Consultations 11/02/18 09:46 Consult to Physician [CONS] Routine Consulting Provider: Valdemar Lowery Courtesy Call Completed to Consulting Physician: Yes Reason for Consult: Hematochezia, melena, cirrhosis, acute cholecystitis Hospital Course: Mr. Mckee is a 48-year-old gentleman who is admitted through the emergency department with jaundice and elevation in bilirubin of 24. He has a known and long-standing history of daily alcohol use, reporting 4-5 drinks per day. For the past week has noted development of significant jaundice and stop consuming alcohol about 6 days ago. He denies any preceding history of liver disease and also denies any family history of liver disease. Current medications include omeprazole, Lipitor, and trazodone. He has no significant risk factors for infectious hepatitis. Associated with development of jaundice has been some nausea and progressive weakness with fatigue. On admission he was noted to have elevation in white blood cell count, CT scan of the abdomen showed evidence of liver inflammation as well as possible gallbladder inflammation. Ultrasound was obtained which showed evidence of gallbladder wall thickening as well as sludge or stones within the gallbladder. He was felt to have acute cholecystitis and was started on IV antibiotic therapy. With this intervention white blood cell count gradually normalized and pain in the right upper quadrant improved. MRCP was obtained and showed no evidence of ductal obstruction. Laboratory studies were obtained to evaluate for other potential causes of liver disease in addition to his chronic alcohol use. Ferritin level was elevated at 2400 and should be repeated when he is more stable as an outpatient because of the potential for acute phase reaction. Iron saturation was also increased but his iron levels were found to be low. Other labs including serology for acute hepatitis, ceruloplasmin, alpha-1 antitrypsin , JAQUELINE, anti-smooth muscle antibody and anti-mitochondrial antibodies were all normal or only slightly elevated. Hospital course was otherwise complicated by intermittent episodes of red blood per rectum as well as melenic-appearing stools. Upper GI endoscopy was performed and showed evidence of esophageal varices as well as gastritis and duodenitis. Colonoscopy showed no obvious source of blood loss. He was treated with proton pump inhibitor therapy and by the time of discharge and had no further evidence of GI bleeding. During hospital course he did develop increasing ascites and was started on diuretic therapy with furosemide and spironolactone. He will be discharged on these medications and have follow-up electrolytes obtained at the clinic. INR was elevated on admission and after vitamin K was given did improve but did not totally normalized. Follow-up appointment is been scheduled with primary care later this week and they will continue his prednisone taper over the next month. Laboratory studies will be obtained at the time of that appointment. Consult will be obtained in the department of gastroenterology in the first part of December. He is been strongly encouraged to avoid all alcohol use and will need to consider formal alcohol treatment program and he is not interested in the present time. Activity will be as tolerated and he will be on a low- sodium low-fat diet. - Patient Instructions Diet: Low Sodium Diet, Other: Low fat Activity: As Tolerated Other/Special Instructions: Avoid all alcohol use. Follow-up appointments have been scheduled with primary care for , November 14 and gastroenterology for the first part of December. CMP and INR should be obtained at the time of follow-up appointment with primary care. - Discharge Plan Prescriptions/Med Rec: Furosemide [Lasix] 40 mg PO BIDDIURETIC #60 tablet Pantoprazole [ProTONIX] 40 mg PO DAILY #30 tab.cr Potassium Chloride [Klor-Con M20] 40 meq PO BID #120 tab.er predniSONE [Prednisone] 20 mg PO DAILY #100 tablet Spironolactone [Aldactone] 25 mg PO BIDDIURETIC #60 tablet Home Medications: Home Meds Baclofen 10 mg PO BEDTIME 10/30/18 [History] diphenhydrAMINE [Benadryl] 25 mg PO BEDTIME 10/30/18 [History] Furosemide [Lasix] 40 mg PO BIDDIURETIC #60 tablet 11/11/18 [Rx] Pantoprazole [ProTONIX] 40 mg PO DAILY #30 tab.cr 11/11/18 [Rx] Potassium Chloride [Klor-Con M20] 40 meq PO BID #120 tab.er 11/11/18 [Rx] Spironolactone [Aldactone] 25 mg PO BIDDIURETIC #60 tablet 11/11/18 [Rx] predniSONE [Prednisone] 20 mg PO DAILY #100 tablet 11/11/18 [Rx] Patient Handouts: Fat and Cholesterol Restricted Diet, Liver Function Tests, Gallbladder Eating Plan Referrals: Mi Friend PA [Ordering Only Provider] - 12/10/18 9:00 am Landon Koenig PA [Physician R Programmer] - 11/14/18 1:00 pm - Discharge Summary/Plan Comment DC Time >30 min.: No - Patient Data Vitals - Most Recent: Last Vital Signs Temp 97.6 F 11/11/18 07:39 Pulse 69 11/11/18 07:39 Resp 18 11/11/18 07:39 BP 113/70 11/11/18 07:39 Pulse Ox 95 11/11/18 05:00 Weight - Most Recent: 188 lb 9.6 oz I&O - Last 24 hours: Intake & Output 11/10/18 11/11/18 11/11/18 22:59 06:59 14:59 Output Total 7120 950 1500 Balance -2350 -950 -1500 Lab Results - Last 24 hrs: Laboratory Results - last 24 hr 11/11/18 11/11/18 Range/Units 05:30 05:30 WBC 25.0 H (4.5-11.0) K/uL RBC 3.74 L (4.30-5.90) M/uL Hgb 12.7 (12.0-15.0) g/dL Hct 36.7 L (40.0-54.0) % MCV 98 (80-98) fL MCH 34 H (27-31) pg MCHC 35 (32-36) % Plt Count 214 (150-400) K/uL Sodium 135 L (140-148) mmol/L Potassium 4.1 (3.6-5.2) mmol/L Chloride 103 (100-108) mmol/L Carbon Dioxide 23 (21-32) mmol/L Anion Gap 13.1 (5.0-14.0) mmol/L BUN 20 H (7-18) mg/dL Creatinine 0.9 (0.8-1.3) mg/dL Est Cr Clr Drug Dosing 99.22 mL/min Estimated GFR (MDRD) > 60 (>60) Glucose 94 (74-106) mg/dL Calcium 8.2 L (8.5-10.1) mg/dL Total Bilirubin 13.3 H (0.2-1.0) mg/dL AST 140 H (15-37) U/L ALT 87 H (12-78) U/L Alkaline Phosphatase 233 H (46-116) U/L Total Protein 6.5 (6.4-8.2) g/dL Albumin 1.3 L (3.4-5.0) g/dL Globulin 5.2 H (2.3-3.5) g/dL Albumin/Globulin Ratio 0.3 L (1.2-2.2) Med Orders - Current: Current Medications Al Hydroxide/Mg Hydroxide (Mag-Al Plus) 30 ml PO Q2H PRN PRN Reason: Epigastric pain Baclofen (Lioresal) 10 mg PO BEDTIME BONG Last Admin: 11/10/18 21:02 Dose: 10 mg Furosemide (Lasix) 40 mg PO BIDDIURETIC BONG Last Admin: 11/11/18 07:37 Dose: 40 mg Hydroxyzine HCl (Atarax) 50 mg PO Q6H PRN PRN Reason: Itching Last Admin: 11/11/18 01:33 Dose: 50 mg Melatonin (Melatonin) 9 mg PO BEDTIME BONG Last Admin: 11/10/18 21:02 Dose: 9 mg Ondansetron HCl (Zofran) 4 mg IV Q4H PRN PRN Reason: Nausea/Vomiting Oxycodone HCl (Oxycodone) 5 mg PO Q4H PRN PRN Reason: Pain (moderate 4-6) Last Admin: 11/11/18 05:35 Dose: 5 mg Pantoprazole Sodium (Protonix) 40 mg PO BIDAC [facility] Last Admin: 11/11/18 07:37 Dose: 40 mg Potassium Chloride (Klor-Con M20) 40 meq PO BID [facility] Last Admin: 11/11/18 09:17 Dose: 40 meq Prednisolone (Orapred 15 Mg/5ml Soln) 40 mg PO DAILY [facility] Last Admin: 11/11/18 09:17 Dose: 40 mg Senna/Docusate Sodium (Senna Plus) 1 tab PO BID PRN PRN Reason: Constipation Sodium Chloride (Saline Flush) 10 ml FLUSH ASDIRECTED PRN PRN Reason: Keep Vein Open Spironolactone (Aldactone) 25 mg PO BIDDIURETIC [facility] Last Admin: 11/11/18 07:37 Dose: 25 mg Discontinued Medications Amoxicillin/Clavulanate Potassium (Augmentin 875 Mg/125 Mg) 1 tab PO Q12H [facility] Last Admin: 11/08/18 08:09 Dose: 1 tab Bisacodyl (Dulcolax) 10 mg RECTAL ONETIME ONE Stop: 10/30/18 15:03 Last Admin: 10/30/18 16:49 Dose: 10 mg Bisacodyl (Dulcolax) Confirm Administered Dose 10 mg .ROUTE .STK-MED ONE Stop: 10/30/18 16:54 Last Admin: 10/30/18 17:45 Dose: 10 mg Bisacodyl (Dulcolax) 10 mg PO ONETIME ONE Stop: 11/02/18 10:31 Last Admin: 11/02/18 10:38 Dose: 10 mg Bisacodyl (Dulcolax) 10 mg PO ONETIME ONE Stop: 11/02/18 20:01 Last Admin: 11/02/18 19:47 Dose: 10 mg Diphenhydramine HCl (Benadryl) 25 mg PO Q6H PRN PRN Reason: Itching Last Admin: 11/03/18 21:36 Dose: 25 mg Fentanyl (Sublimaze) Confirm Administered Dose 100 mcg .ROUTE .STK-MED ONE Stop: 11/03/18 07:46 Furosemide (Lasix) 20 mg IVPUSH NOW ONE Stop: 11/03/18 12:01 Last Admin: 11/03/18 12:17 Dose: 20 mg Furosemide (Lasix) 20 mg IVPUSH ONETIME ONE Stop: 11/04/18 10:16 Last Admin: 11/04/18 11:10 Dose: 20 mg Furosemide (Lasix) 20 mg IVPUSH ONETIME ONE Stop: 11/04/18 16:01 Last Admin: 11/04/18 16:22 Dose: 20 mg Hydroxyzine HCl (Atarax) 25 mg PO Q6H PRN PRN Reason: Itching Last Admin: 11/08/18 15:47 Dose: 25 mg Sodium Chloride (Normal Saline) 1,000 mls @ 500 mls/hr IV ASDIRECTED [facility] Last Admin: 10/30/18 13:44 Dose: 500 mls/hr Sodium Chloride (Normal Saline) 100 mls @ 3 mls/sec IV ONETIME ONE Stop: 10/30/18 14:33 Last Admin: 10/30/18 16:44 Dose: 3 mls/sec Sodium Chloride (Normal Saline) 79 mls @ 3 mls/sec IV ONETIME ONE Stop: 10/30/18 15:06 Last Admin: 10/30/18 15:09 Dose: 3 mls/sec Piperacillin/Tazobactam/ (Dextrose 3.375 gm/ Premix) 50 mls @ 100 mls/hr IV Q6H [facility] Last Admin: 10/31/18 05:38 Dose: 100 mls/hr Sodium Chloride (Normal Saline) 1,000 mls @ 125 mls/hr IV ASDIRECTED [facility] Last Admin: 10/31/18 11:23 Dose: 125 mls/hr Potassium Chloride 20 meq/ (Lidocaine HCl 2 ml/ Premix) 102 mls @ 51 mls/hr IV ONETIME ONE Stop: 10/31/18 07:59 Last Admin: 10/31/18 05:59 Dose: 51 mls/hr Potassium Chloride (Kcl 20 Meq In Water 100 Ml) Confirm Administered Dose 100 mls @ as directed .ROUTE .STK-MED ONE Stop: 10/31/18 05:55 Last Admin: 10/31/18 10:39 Dose: Not Given Piperacillin/Tazobactam/ (Dextrose 3.375 gm/ Premix) 50 mls @ 100 mls/hr IV Q6H BONG Stop: 11/06/18 14:00 Last Admin: 11/06/18 13:02 Dose: 100 mls/hr Sodium Chloride (Normal Saline) 1,000 mls @ 500 mls/hr IV ASDIRECTED [facility] Last Admin: 11/01/18 20:50 Dose: 500 mls/hr Sodium Chloride (Normal Saline) 1,000 mls @ 125 mls/hr IV ASDIRECTED [facility] Last Admin: 11/02/18 05:52 Dose: 125 mls/hr Sodium Chloride (Normal Saline) 1,000 mls @ 50 mls/hr IV ASDIRECTED [facility] Last Admin: 11/02/18 19:47 Dose: 50 mls/hr Sodium Chloride (Normal Saline) 100 mls @ 3.5 mls/sec IV ONETIME ONE Stop: 11/02/18 12:05 Last Admin: 11/02/18 12:17 Dose: 3 mls/sec Potassium Chloride 20 meq/Lidocaine HCl 2 ml/ Sodium Chloride 112 mls @ 56 mls/ hr IV ONETIME ONE Stop: 11/07/18 09:59 Last Admin: 11/07/18 07:49 Dose: 56 mls/hr Ibuprofen (Motrin) 600 mg PO Q6H PRN PRN Reason: Fever Last Admin: 11/02/18 17:13 Dose: 600 mg Influenza Virus Vaccine (Pharmacy To Dose - Influenza Vaccine) 1 each IM ONETIME ONE Stop: 10/31/18 14:01 Last Admin: 10/31/18 15:14 Dose: Not Given Influenza Virus Vaccine (Fluzone Quad 7134-1988 Syringe) 60 mcg IM .ONCE ONE Stop: 11/01/18 10:01 Last Admin: 11/01/18 11:21 Dose: 60 mcg Iohexol (Omnipaque) 20 ml PO ASDIRECTED [facility] Last Admin: 11/02/18 12:18 Dose: 20 ml Iopamidol (Isovue-300 (61%)) 150 ml IV . DIRECTED [facility] Last Admin: 10/30/18 15:09 Dose: 128 ml Iopamidol (Isovue-300 (61%)) 128 ml IV . DIRECTED BONG Iopamidol (Isovue-300 (61%)) 100 ml IV . DIRECTED BONG Stop: 11/02/18 13:00 Last Admin: 11/02/18 12:23 Dose: 100 ml Midazolam HCl (Versed 1 Mg/Ml) Confirm Administered Dose 2 mg .ROUTE .STK-MED ONE Stop: 11/03/18 07:46 Pantoprazole Sodium (Protonix Iv) 40 mg IVPUSH Q12H [facility] Last Admin: 11/05/18 12:05 Dose: 40 mg Phytonadione (Aquamephyton) 5 mg PO DAILY [facility] Last Admin: 11/07/18 08:01 Dose: 5 mg Polyethylene Glycol (Miralax) 238 gm PO ONETIME ONE Stop: 11/02/18 17:01 Last Admin: 11/02/18 16:49 Dose: 238 gm Potassium Chloride (Klor-Con M20) 20 meq PO ONETIME ONE Stop: 10/31/18 05:39 Last Admin: 10/31/18 10:39 Dose: Not Given Potassium Chloride (Klor-Con M20) 40 meq PO ONETIME ONE Stop: 10/31/18 09:01 Last Admin: 10/31/18 11:22 Dose: 40 meq Potassium Chloride (Klor-Con M20) 40 meq PO ONETIME ONE Stop: 10/31/18 14:31 Last Admin: 10/31/18 15:30 Dose: 40 meq Potassium Chloride (Klor-Con M20) 40 meq PO ONETIME ONE Stop: 11/01/18 09:01 Last Admin: 11/01/18 15:31 Dose: 40 meq Potassium Chloride (Klor-Con M20) 40 meq PO ONETIME ONE Stop: 11/01/18 15:01 Last Admin: 11/01/18 15:51 Dose: 40 meq Potassium Chloride (Klor-Con M20) 40 meq PO ONETIME ONE Stop: 11/01/18 21:01 Last Admin: 11/01/18 22:02 Dose: 40 meq Potassium Chloride (Klor-Con M20) 40 meq PO ONETIME ONE Stop: 11/02/18 09:01 Last Admin: 11/02/18 09:08 Dose: 40 meq Potassium Chloride (Klor-Con M20) 40 meq PO ONETIME ONE Stop: 11/02/18 13:01 Last Admin: 11/02/18 13:07 Dose: 40 meq Potassium Chloride (Klor-Con M20) 40 meq PO ONETIME ONE Stop: 11/04/18 09:31 Last Admin: 11/04/18 11:10 Dose: 40 meq Potassium Chloride (Klor-Con M20) 40 meq PO ONETIME ONE Stop: 11/05/18 09:31 Last Admin: 11/05/18 08:45 Dose: 40 meq Propofol (Diprivan 20 Ml) Confirm Administered Dose 200 mg .ROUTE .STK-MED ONE Stop: 11/03/18 07:46 Propofol (Diprivan 20 Ml) Confirm Administered Dose 200 mg .ROUTE .STK-MED ONE Stop: 11/03/18 07:56 Sodium Chloride (Saline Flush) 10 ml FLUSH ONETIME PRN PRN Reason: PER RADIOLOGY PROTOCOL Last Admin: 10/30/18 15:09 Dose: 10 ml Sodium Chloride (Saline Flush) 10 ml FLUSH ONETIME ONE Stop: 11/02/18 12:05 Last Admin: 11/02/18 12:17 Dose: 10 ml Spironolactone (Aldactone) 25 mg PO BID BONG Last Admin: 11/06/18 08:14 Dose: 25 mg - Exam General: Reports: Alert, Oriented, Cooperative, No Acute Distress Lungs: Reports: Clear to Auscultation, Normal Respiratory Effort Cardiovascular: Reports: Regular Rate, Regular Rhythm, No Murmurs GI/Abdominal Exam: Soft, Non-Tender, No Organomegaly, No Distention
--- NOTE | 2018-11-15 10:42 | OR ---
DATE OF PROCEDURE: 11/03/2018 PREOPERATIVE DIAGNOSIS: Hepatic failure associated with right-sided abdominal pain. POSTOPERATIVE DIAGNOSES: 1. Upper gastrointestinal endoscopy showing: a. Minimal esophagitis. b. One mildly distended distal esophageal varix. c. Healing erosive gastritis and duodenitis. 2. Normal colonoscopic examination. PROCEDURES PERFORMED: 1. Upper gastrointestinal endoscopy with: a. Biopsies of antrum for CLOtest (15707). 2. Flexible colonoscopy (77287). ANESTHESIA: IV sedation. INDICATION FOR PROCEDURE: This is a 48-year-old male presenting with some ongoing quite severe hepatic insufficiency with his bilirubins running in the 20 range. The patient is complaining of some right-sided abdominal pain. He does have some distention of the gallbladder on imaging, but at this point, he is not particularly tender over the gallbladder per se. He does have a moderate amount of ascites present. Plan is to proceed with upper and lower endoscopy for evaluation of these symptoms. We will also be looking to see to what extent there are esophageal varices. Potential risks of procedure including bleeding and perforation were discussed, and the patient wishes to proceed. DETAILS OF PROCEDURE: The patient was taken to the operating room and placed in a left lateral decubitus position. IV sedation was administered, after which the upper GI endoscope was passed orally through the length of the esophagus and into the stomach with retroflexion view of the fundus and thereafter through the pyloric channel roughly to the level of the junction of the third and fourth portions of the duodenum. Findings included a normal esophageal body. As one passed into the more distal esophagus, there was one mildly distended esophageal varix present, but in general variceal disease was quite minimal. There was some minimal redness in the distal esophagus without erosions or ulcers and no stricturing at the site of the esophagogastric junction. No significant hiatal hernia was present. Within the antrum, there was some patchy erosive gastritis, which was now healing. This extended into the duodenum with some patchy redness in the duodenal bulb, along with some healing erosions there. Beyond the duodenal bulb, the duodenal findings normalized. At this point, biopsy was obtained from the antrum and sent for CLOtest for H. pylori. Minimal bleeding from the biopsy site was seen and the procedure then concluded. Attention was then taken to the colonoscopy. The initial digital rectal exam was performed and was unremarkable. Colonoscope was then passed to the level of the cecum. The prep was fairly good with only a small amount of liquid stool being present. To that level, no abnormalities were noted. Specifically, there was no dilation of the hemorrhoidal vessels. Otherwise no areas of diverticular disease, colitis, polyps, or other signs of neoplasia. The scope was then withdrawn. The above findings reconfirmed. The procedure concluded. The patient was taken to the recovery room in satisfactory condition. Valdemar Lowery MD /[id number]
== END 2018-11-11 14:39 | disposition home or self-care (01) | DRG 433 ==
LOC: JP.ED 13:00 → JP.MS 15:59
PROVIDERS: ADMIT Hospitalist; ATTEND Hospitalist
PROC: 3E02340 Introduction of Influenza Vaccine into Muscle, Percutaneous Approach (ICD-10-PCS; principal; 2018-11-01)
PROC: 0DB78ZX Excision of Stomach, Pylorus, Via Natural or Artificial Opening Endoscopic, Diagnostic (ICD-10-PCS; 2018-11-03)
PROC: 0DJD8ZZ Inspection of Lower Intestinal Tract, Via Natural or Artificial Opening Endoscopic (ICD-10-PCS; 2018-11-03)
DX: K70.31 Alcoholic cirrhosis of liver with ascites (principal); K81.0 Acute cholecystitis; K92.2 Gastrointestinal hemorrhage, unspecified; D68.9 Coagulation defect, unspecified; K92.1 Melena; I85.10 Secondary esophageal varices without bleeding; F10.20 Alcohol dependence, uncomplicated; K70.11 Alcoholic hepatitis with ascites; Z23 Encounter for immunization; Y90.9 Presence of alcohol in blood, level not specified; K29.90 Gastroduodenitis, unspecified, without bleeding; I78.1 Nevus, non-neoplastic; R06.02 Shortness of breath; K44.9 Diaphragmatic hernia without obstruction or gangrene; E87.6 Hypokalemia; R60.1 Generalized edema; Z87.891 Personal history of nicotine dependence; E78.00 Pure hypercholesterolemia, unspecified; R50.9 Fever, unspecified; Z79.52 Long term (current) use of systemic steroids; Z88.8 Allergy status to other drugs, medicaments and biological substances; K21.9 Gastro-esophageal reflux disease without esophagitis
CPT/HCPCS: 36415; 71046; 71046-26; 74019; 74019-26; 74177; 74181; 74181-26; 76705; 80048; 80053; 80074; 82103; 82140; 82248; 82390; 82728; 83516; 83550; 83605; 83735; 84132; 85018; 85025; 85027; 85610; 86038; 86255; 87081; 90686; 96361; 96374; 99222-AI; 99231; 99232; 99233; 99238; 99285; 99285-25; A9270-GY; C9113; G0008; J1940; J2001; J2250; J2543; J2704; J3010; J3480; J7030; Q9965; Q9967

== ENCOUNTER 2019-02-11 20:42 | Emergency (ER) | payer SELFPAY ==
[2019-02-11 21:01] VITALS: BP 130/88
[2019-02-11] MEDS ORDERED: Bacitracin Oint 1 GM U/D Packet TOP ONE (21:09)
[2019-02-11] MEDS ORDERED: Diphtheria,Pertussis(Acell),Tetanus Vaccine 0.5 ML SDV IM ONE (21:10)
--- NOTE | 2019-02-11 21:42 | EDM.PDOC ---
ED HPI GENERAL MEDICAL PROBLEM - General Chief Complaint: Bite:Animal, Insect Stated Complaint: DOG BITE Time Seen by Provider: 02/11/19 21:00 Source of Information: Reports: Patient History Limitations: Reports: No Limitations - History of Present Illness INITIAL COMMENTS - FREE TEXT/NARRATIVE: 48-year-old male was playing with his dogs when one of them jumped up and actually bit him on his upper lip. He has a few lacerations on the left upper lip including one crossing the vermilion border. No dental injury. No other injury. Onset: Sudden Duration: Hour(s): (Within the last couple hours) Location: Reports: Face Associated Symptoms: Reports: No Other Symptoms Upper Lip Pain Score (Numeric/FACES): 7 - Related Data Allergies Allergy/AdvReac Type Severity Reaction Status Date / Time simvastatin Allergy Cannot Verified 02/11/19 21:11 Remember Home Meds: Home Meds diphenhydrAMINE [Benadryl] 25 mg PO BEDTIME 10/30/18 [History] Furosemide [Lasix] 40 mg PO BIDDIURETIC #60 tablet 11/11/18 [Rx] Pantoprazole [ProTONIX] 40 mg PO DAILY #30 tab.cr 11/11/18 [Rx] Potassium Chloride [Klor-Con M20] 40 meq PO BID #120 tab.er 11/11/18 [Rx] Spironolactone [Aldactone] 25 mg PO BIDDIURETIC #60 tablet 11/11/18 [Rx] traZODone 100 mg PO BEDTIME 02/11/19 [History] Past Medical History HEENT History: Reports: Allergic Rhinitis Cardiovascular History: Reports: High Cholesterol Respiratory History: Reports: Bronchitis, Recurrent, COPD Gastrointestinal History: Reports: GERD, Hiatal Hernia Musculoskeletal History: Reports: Back Pain, Chronic, Fracture, Osteoarthritis Other Musculoskeletal History: Fracture: back, right hand, right big toe Psychiatric History: Reports: Anxiety Hematologic History: Reports: B12 Deficiency Dermatologic History: Reports: Eczema - Infectious Disease History Infectious Disease History: Reports: Chicken Pox - Past Surgical History Dermatological Surgical History: Reports: None Social & Family History - Family History HEENT: Reports: Cataract, Hearing Impairment, Impaired Vision Cardiac: Reports: CO Respiratory: Reports: Asthma, COPD, Sleep Apnea GI: Reports: Cholelithiasis, Colon Polyps, Jaundice : Reports: Diabetic Nephropathy Musculoskeletal: Reports: Back pain, Chronic, Gout, Osteoporosis, RA Neurological: Reports: CVA, Neuropathy, Diabetic, Vertigo Psychiatric: Reports: Anxiety, Depression, Panic Attack, Suicide Attempt Endocrine/Metabolic: Reports: Diabetes, type II, Obesity/MBI 30+, Osteoporosis Hematologic: Reports: Anemia, B12 Deficiency Dermatologic: Reports: Eczema Oncologic: Reports: Bone, Colon - Tobacco Use Smoking Status *Q: Current Every Day Smoker Years of Tobacco use: 30 Packs/Tins Daily: 0.1 - Caffeine Use Caffeine Use: Reports: Coffee, Tea ED ROS GENERAL - Review of Systems Review Of Systems: See Below Constitutional: Denies: Fever Respiratory: Denies: Shortness of Breath Cardiovascular: Denies: Chest Pain GI/Abdominal: Denies: Abdominal Pain, Nausea, Vomiting Neurological: Denies: Headache ED EXAM, ANIMAL BITE - Physical Exam Exam: See Below Exam Limited By: No Limitations General Appearance: Alert, No Apparent Distress Throat/Mouth: Other (Patient has a 1.5 cm curved laceration just under the left nares on the upper lip, and a 2.5 cm laceration just lateral that goes down and crosses the vermilion border) Course - Vital Signs Last Recorded V/S: Last Vital Signs Temp 95.9 F 02/11/19 21:27 Pulse 94 02/11/19 21:27 Resp 16 02/11/19 21:27 BP 130/88 02/11/19 21:27 Pulse Ox 98 02/11/19 21:27 - Orders/Labs/Meds Orders: Active Orders 24 hr Category Date Time Status Vaccines to be Administered [RC] PER UNIT ROUTINE Care 02/11/19 21:10 Active Meds: Medications Discontinued Medications Generic Name Dose Route Start Last Admin Trade Name Lori PRN Reason Stop Dose Admin Bacitracin 1 dose 02/11/19 21:09 02/11/19 21:38 Bacitracin Oint 1 Gm TOP 02/11/19 21:10 1 dose ONETIME ONE Administration Diphtheria/Tetanus/Acell Pertussis 0.5 ml 02/11/19 21:10 02/11/19 21:37 Adacel IM 02/11/19 21:11 0.5 ml .ONCE ONE Administration Lidocaine HCl 5 ml 02/11/19 21:09 02/11/19 21:38 Xylocaine-Mpf 1% INJECT 02/11/19 21:10 5 ml ONETIME ONE Administration - Re-Assessments/Exams Free Text/Narrative Re-Assessment/Exam: 02/11/19 21:39 The wounds were anesthetized with 1% lidocaine, the hair was trimmed and 5.0 sutures were used to close the lacerations. 2 sutures were used to close the small one, 3 sutures for the larger wound while lining up the vermilion border. Sutures can be removed in 6 days. Cool compresses may help, and he was placed on Augmentin twice a day for 7 days 02/11/19 21:42 Patient received a TDap Booster Departure - Departure Time of Disposition: 21:47 Disposition: Home, Self-Care 01 Condition: Good Clinical Impression: Dog bite of face Qualifiers: Encounter type: initial encounter Qualified Code(s): S01.85XA - Open bite of other part of head, initial encounter - Discharge Information Instructions: Animal Bite, [id number] Referrals: Landon Koenig PA [Primary Care Provider] - Forms: ED Department Discharge Care Plan Goals: Cool compresses to the area to reduce swelling would be beneficial. A small amount of topical bacitracin once or twice daily may be helpful. Take antibiotic twice daily for 7 days. Sutures can be removed in 6 days, next Sunday morning. Return sooner if concerns of infection or not healing satisfactorily. - My Orders Last 24 Hours: My Active Orders 02/11/19 21:10 Vaccines to be Administered [RC] PER UNIT ROUTINE - Assessment/Plan Last 24 Hours: My Active Orders 02/11/19 21:10 Vaccines to be Administered [RC] PER UNIT ROUTINE
== END 2019-02-11 21:48 | disposition home or self-care (01) ==
LOC: JP.ED 20:42
DX: S01.551A Open bite of lip, initial encounter (principal); F17.210 Nicotine dependence, cigarettes, uncomplicated; Z23 Encounter for immunization; W54.0XXA Bitten by dog, initial encounter; Z88.8 Allergy status to other drugs, medicaments and biological substances
CPT/HCPCS: 40650; 90471; 90715; 99283; J2001; 12013

== ENCOUNTER 2019-10-04 11:18 | Emergency (ER) | payer SELFPAY ==
[2019-10-04 11:42] VITALS: BP 89/43; PULSE 57
[2019-10-04] MEDS ORDERED: Lactated Ringers 1,000 ML IV ONE (12:18)
--- NOTE | 2019-10-04 12:25 | EDM.PDOC ---
ED HPI GENERAL MEDICAL PROBLEM - General Chief Complaint: General Stated Complaint: dizzy Time Seen by Provider: 10/04/19 12:00 Source of Information: Reports: Patient History Limitations: Reports: No Limitations - History of Present Illness INITIAL COMMENTS - FREE TEXT/NARRATIVE: 49-year-old with history of alcohol liver disease and known varices who presents with concerns of syncope. He reports that upon standing from a chair earlier this morning he began to feel very dizzy. He then proceeded to have a very brief episode of LOC during which his helped him to the ground, he regained consciousness almost immediately. Reports that since this time he continues to feel somewhat dizzy, even while lying in bed. He does not have any chest pain. He has no dyspnea. He is otherwise been feeling well, no fevers or chills. He has no abdominal pain. No black stools, no urinary difficulty. No history of cardiac disease. - Related Data Allergies Allergy/AdvReac Type Severity Reaction Status Date / Time simvastatin Allergy Cannot Verified 10/04/19 11:34 Remember Home Meds: Home Meds diphenhydrAMINE [Benadryl] 25 mg PO BEDTIME 10/30/18 [History] Furosemide [Lasix] 40 mg PO BIDDIURETIC #60 tablet 11/11/18 [Rx] Potassium Chloride [Klor-Con M20] 40 meq PO BID #120 tab.er 11/11/18 [Rx] Spironolactone [Aldactone] 25 mg PO BIDDIURETIC #60 tablet 11/11/18 [Rx] traZODone 100 mg PO BEDTIME 02/11/19 [History] Past Medical History HEENT History: Reports: Allergic Rhinitis Cardiovascular History: Reports: High Cholesterol Respiratory History: Reports: Bronchitis, Recurrent, COPD Gastrointestinal History: Reports: GERD, Hiatal Hernia Musculoskeletal History: Reports: Back Pain, Chronic, Fracture, Osteoarthritis Other Musculoskeletal History: Fracture: back, right hand, right big toe Psychiatric History: Reports: Anxiety Hematologic History: Reports: B12 Deficiency Dermatologic History: Reports: Eczema - Infectious Disease History Infectious Disease History: Reports: Chicken Pox - Past Surgical History Dermatological Surgical History: Reports: None Social & Family History - Family History HEENT: Reports: Cataract, Hearing Impairment, Impaired Vision Cardiac: Reports: [place] Respiratory: Reports: Asthma, COPD, Sleep Apnea GI: Reports: Cholelithiasis, Colon Polyps, Jaundice : Reports: Diabetic Nephropathy Musculoskeletal: Reports: Back pain, Chronic, Gout, Osteoporosis, RA Neurological: Reports: CVA, Neuropathy, Diabetic, Vertigo Psychiatric: Reports: Anxiety, Depression, Panic Attack, Suicide Attempt Endocrine/Metabolic: Reports: Diabetes, type II, Obesity/MBI 30+, Osteoporosis Hematologic: Reports: Anemia, B12 Deficiency Dermatologic: Reports: Eczema Oncologic: Reports: Bone, Colon - Tobacco Use Smoking Status *Q: Current Every Day Smoker Years of Tobacco use: 30 Packs/Tins Daily: 0.3 - Caffeine Use Caffeine Use: Reports: Coffee, Tea ED ROS GENERAL - Review of Systems Review Of Systems: See Below Constitutional: Reports: No Symptoms HEENT: Reports: No Symptoms Respiratory: Reports: No Symptoms Cardiovascular: Reports: Syncope Endocrine: Reports: No Symptoms GI/Abdominal: Reports: No Symptoms : Reports: No Symptoms Musculoskeletal: Reports: No Symptoms Skin: Reports: No Symptoms Neurological: Reports: No Symptoms Psychiatric: Reports: No Symptoms Hematologic/Lymphatic: Reports: No Symptoms Immunologic: Reports: No Symptoms ED EXAM, GENERAL - Physical Exam Exam: See Below Exam Limited By: No Limitations General Appearance: Alert, No Apparent Distress Ears: Normal External Exam Nose: Normal Inspection Throat/Mouth: Normal Inspection Head: Atraumatic, Normocephalic Neck: Normal Inspection Respiratory/Chest: Lungs Clear Cardiovascular: Regular Rate, Rhythm GI/Abdominal: Soft, Non-Tender Extremities: Normal Inspection, Pedal Edema (mild) Neurological: Alert, Oriented Psychiatric: Normal Affect, Normal Mood Skin Exam: Warm, Dry Course - Vital Signs Last Recorded V/S: Last Vital Signs Temp 36.4 C 10/04/19 11:41 Pulse 57 L 10/04/19 11:41 Resp 16 10/04/19 11:41 BP 89/43 L 10/04/19 11:41 Pulse Ox 97 10/04/19 11:41 - Orders/Labs/Meds Orders: Active Orders 24 hr Category Date Time Status EKG Documentation Completion [RC] ASDIRECTED Care 10/04/19 12:17 Active EKG 12 Lead [EK] Routine Ther 10/04/19 12:17 Ordered Labs: Laboratory Tests 10/04/19 10/04/19 Range/Units 12:21 12:21 WBC 4.4 L (4.5-11.0) K/uL RBC 3.88 L (4.30-5.90) M/uL Hgb 12.0 (12.0-15.0) g/dL Hct 35.7 L (40.0-54.0) % MCV 92 (80-98) fL MCH 31 (27-31) pg MCHC 34 (32-36) % Plt Count 144 L (150-400) K/uL Sodium 137 L (140-148) mmol/L Potassium 4.1 (3.6-5.2) mmol/L Chloride 105 (100-108) mmol/L Carbon Dioxide 21 (21-32) mmol/L Anion Gap 15.1 H (5.0-14.0) mmol/L BUN 12 (7-18) mg/dL Creatinine 1.3 (0.8-1.3) mg/dL Est Cr Clr Drug Dosing 67.96 mL/min Estimated GFR (MDRD) 59 L (>60) Glucose 100 (74-106) mg/dL Calcium 9.1 (8.5-10.1) mg/dL Total Bilirubin 1.3 H D (0.2-1.0) mg/dL AST 58 H (15-37) U/L ALT 38 (12-78) U/L Alkaline Phosphatase 100 (46-116) U/L Total Protein 6.9 (6.4-8.2) g/dL Albumin 3.0 L (3.4-5.0) g/dL Globulin 3.9 H (2.3-3.5) g/dL Albumin/Globulin Ratio 0.8 L (1.2-2.2) Meds: Medications Discontinued Medications Generic Name Dose Route Start Last Admin Trade Name Lori PRN Reason Stop Dose Admin Lactated Ringer's 1,000 mls @ 999 mls/hr 10/04/19 12:18 10/04/19 12:39 Ringers, Lactated IV 10/04/19 13:18 999 mls/hr BOLUS ONE Administration - Re-Assessments/Exams Free Text/Narrative Re-Assessment/Exam: 49-year-old with history of alcohol liver disease presents after syncopal episode. History this sounds most consistent with orthostatic hypotension, however it is odd that he continues to feel dizzy this long after the episode. He is mildly hypertensive on evaluation, with a systolic pressure around 90. He reports that he normally runs in the 120s. Remainder of his exam is unremarkable. We are going to check an EKG as well as some screening labs and administered IV fluid bolus then reassess. 10/04/19 12:23 Free Text/Narrative Re-Assessment/Exam: Labs unremarkable. Sinus bradycardia on EKG - patient reports he had history of this. Stable on monitor while in ED. Ambulated and patient reports symptoms resolved, feels at baseline. Recheck BP 100/53, patient reports this is low but question when his BPs are drifting down in setting of liver disease He is being discharged and will be home with today, they will return for recurrent/persistent symptoms. 10/04/19 14:04 Departure - Departure Time of Disposition: 14:06 Disposition: Home, Self-Care 01 Condition: Good Clinical Impression: Syncope and collapse - Discharge Information Referrals: Luis Fernando Loyd CHEMICAL SUPERVISOR [Primary Care Provider] - Forms: ED Department Discharge Additional Instructions: As discussed, please return to the ER for recurrent and persistent symptoms Use caution when standing today in case you become dizzy again. Continue to push fluids - My Orders Last 24 Hours: My Active Orders 10/04/19 12:17 EKG Documentation Completion [RC] ASDIRECTED EKG 12 Lead [EK] Routine - Assessment/Plan Last 24 Hours: My Active Orders 10/04/19 12:17 EKG Documentation Completion [RC] ASDIRECTED EKG 12 Lead [EK] Routine
== END 2019-10-04 14:16 | disposition home or self-care (01) ==
LOC: JP.ED 11:18
DX: R55 Syncope and collapse (principal); J44.9 Chronic obstructive pulmonary disease, unspecified; F17.210 Nicotine dependence, cigarettes, uncomplicated; Z88.8 Allergy status to other drugs, medicaments and biological substances
CPT/HCPCS: 36415; 80053; 85027; 93005; 96360; 99283; 99284; J7120

== ENCOUNTER 2022-05-19 22:40 | Emergency (ER) | payer MEDICAID ==
[2022-05-19 22:49] VITALS: BP 137/81; PULSE 65
[2022-05-19] MEDS ORDERED: predniSONE 20 MG Tab PO ONE (23:04)
[2022-05-19] MEDS ORDERED: Famotidine 20 MG Tab PO ONE (23:05)
== END 2022-05-19 23:58 | disposition home or self-care (01) ==
LOC: JP.ED 22:40
DX: T78.40XA Allergy, unspecified, initial encounter (principal); K21.9 Gastro-esophageal reflux disease without esophagitis; I10 Essential (primary) hypertension; Z88.8 Allergy status to other drugs, medicaments and biological substances; Z79.899 Other long term (current) drug therapy; Z86.16 Personal history of COVID-19; Z90.49 Acquired absence of other specified parts of digestive tract; W57.XXXA Bitten or stung by nonvenomous insect and other nonvenomous arthropods, initial encounter
CPT/HCPCS: 99281; 99283; A9270; J7512

== ENCOUNTER 2022-09-05 09:29 | Emergency (ER) | payer MEDICAID ==
[2022-09-05 09:59] VITALS: BP 141/87; PULSE 66
== END 2022-09-05 11:00 | disposition home or self-care (01) ==
LOC: JP.ED 09:29
DX: S63.501A Unspecified sprain of right wrist, initial encounter (principal); S54.01XA Injury of ulnar nerve at forearm level, right arm, initial encounter; I10 Essential (primary) hypertension; K21.9 Gastro-esophageal reflux disease without esophagitis; J44.9 Chronic obstructive pulmonary disease, unspecified; Z86.16 Personal history of COVID-19; Z72.0 Tobacco use; Z88.8 Allergy status to other drugs, medicaments and biological substances; Z79.899 Other long term (current) drug therapy; Y04.0XXA Assault by unarmed brawl or fight, initial encounter
CPT/HCPCS: 73080-26-RT; 73080-RT; 73110-26-RT; 73110-RT; 99283

== ENCOUNTER 2022-12-19 13:38 | Emergency (ER) | payer MEDICAID ==
[2022-12-19 14:04] VITALS: BP 127/83; PULSE 88
== END 2022-12-19 15:00 | disposition left against medical advice (07) ==
LOC: JP.ED 13:38
DX: M25.562 Pain in left knee (principal); I10 Essential (primary) hypertension; J44.9 Chronic obstructive pulmonary disease, unspecified; K21.9 Gastro-esophageal reflux disease without esophagitis; Z88.8 Allergy status to other drugs, medicaments and biological substances; Z79.899 Other long term (current) drug therapy
CPT/HCPCS: 73562-26-LT; 73562-LT; 99283

== ENCOUNTER 2022-12-26 08:07 | Emergency (ER) | payer MEDICAID ==
[2022-12-26] MEDS ORDERED: Morphine 4 MG/ML Syringe IVPUSH PRN (08:09)
[2022-12-26] MEDS ORDERED: Nitroglycerin 0.4 MG Tab.SL SL PRN (08:09)
[2022-12-26] MEDS ORDERED: Aspirin 81 MG Tab.Chew PO ONE (08:09)
[2022-12-26] MEDS ORDERED: Ondansetron 4 MG/2 ML SDV IVPUSH ONE ×2 (08:10→11:30)
[2022-12-26] MEDS: Sodium Chloride 0.9% 10 ML Syringe FLUSH PRN ×4 (08:22→13:03)
[2022-12-26 08:41] LABS: ESTIMATED GFR 92 mL/min (>60)
[2022-12-26] MEDS ORDERED: Potassium Chloride 10 MEQ in Premix Bag 1 BAG IV ONE (08:43)
[2022-12-26] MEDS ORDERED: Potassium Chloride 20 MEQ Tab.ER PO ONE (08:43)
[2022-12-26] MEDS ORDERED: Alum Hydrox/Mag Hydrox/Simeth 15 ML, Lidocaine 2% 15 ML PO ONE ×2 (09:09)
[2022-12-26] MEDS ORDERED: Ketorolac 30 MG/ML SDV IVPUSH ONE (11:31)
[2022-12-26 12:01] VITALS: BP 121/79; PULSE 62
[2022-12-26] MEDS ORDERED: Sodium Chloride 0.9% 10 ML SDV FLUSH ONE (12:36)
[2022-12-26] MEDS ORDERED: Iopamidol 755 Mg/ML 100 ML Bottle IV SCH (12:45)
[2022-12-26] MEDS ORDERED: Sodium Chloride 0.9% 100 ML IV SCH (12:45)
[2022-12-26] MEDS ORDERED: Prochlorperazine 10 MG/2 ML SDV IVPUSH ONE (13:06)
[2022-12-26] MEDS ORDERED: Famotidine 20 MG/2 ML SDV IVPUSH ONE (13:07)
== END 2022-12-26 14:16 | disposition home or self-care (01) ==
LOC: JP.ED 08:07
DX: R07.9 Chest pain, unspecified (principal); K74.60 Unspecified cirrhosis of liver; E78.00 Pure hypercholesterolemia, unspecified; I10 Essential (primary) hypertension; K21.9 Gastro-esophageal reflux disease without esophagitis; Z88.8 Allergy status to other drugs, medicaments and biological substances; Z79.899 Other long term (current) drug therapy; Z86.16 Personal history of COVID-19
CPT/HCPCS: 36415; 71045; 71275; 76705; 80053; 82150; 82272; 83690; 84484; 85025; 85379; 93005; 96365; 96375; 96376; 99285; A9270; J0780; J1885; J2270; J2405; J3480; J3490; Q9967

== ENCOUNTER 2023-02-02 06:49 | Day surgery (SDC) | payer MEDICAID ==
[2023-02-02] MEDS ORDERED: Sodium Chloride 0.9% 1,000 ML IV SCH (07:15)
[2023-02-02] MEDS ORDERED: fentaNYL 50 MCG/ML SDV ONE (07:43)
[2023-02-02] MEDS ORDERED: Propofol 200 MG/20 ML SDV ONE ×2 (07:43→08:14)
[2023-02-02] MEDS ORDERED: Midazolam 1 MG/ML 2 ML SDV ONE (07:43)
[2023-02-02] MEDS ORDERED: ceFAZolin 1 GM in Premix Bag 1 BAG IV ONE (07:50)
[2023-02-02 09:21] VITALS: BP 121/82; PULSE 62
== END 2023-02-02 09:05 | disposition home or self-care (01) ==
LOC: JP.SDS 06:49
PROVIDERS: ATTEND Surgery
DX: R19.4 Change in bowel habit (principal); K57.30 Diverticulosis of large intestine without perforation or abscess without bleeding; J44.9 Chronic obstructive pulmonary disease, unspecified; K21.9 Gastro-esophageal reflux disease without esophagitis; K74.60 Unspecified cirrhosis of liver; Z79.899 Other long term (current) drug therapy; Z88.8 Allergy status to other drugs, medicaments and biological substances
CPT/HCPCS: 45378; J0690; J2250; J2704; J3010; J7030

== ENCOUNTER 2023-03-23 19:08 | Emergency (ER) | payer MEDICAID, OTHER ==
[2023-03-23 20:05] LABS: BASOPHILS ABSOLUTE AUTO 0.03 K/uL (0.00-0.10); BASOPHILS PERCENT AUTO 0.6 % (0.1-1.3); EOSINOPHILS ABSOLUTE AUTO 0.15 K/uL (0.00-0.40); EOSINOPHILS PERCENT AUTO 2.9 % (0.0-5.4); HEMATOCRIT 30.7 % (38.4-49.7); HEMOGLOBIN 11.1 g/dL (12.9-16.9); IMMATURE GRAN PERCENT AUTO 0.2 % (0.0-0.7); LYMPHOCYTES ABSOLUTE AUTO 1.13 K/uL (0.8-3.3); LYMPHOCYTES PERCENT AUTO 21.9 % (11.4-47.7); MEAN CORPUSCULAR HEMOGLOBIN 34.3 pg (31.6-35.5); MEAN CORPUSCULAR HGB CONC 36.2 g/dL (31.6-35.5); MEAN CORPUSCULAR VOLUME 94.8 fL (81.4-99.0); MONOCYTES ABSOLUTE AUTO 0.81 K/uL (0.20-0.90); MONOCYTES PERCENT AUTO 15.7 % (3.3-12.6); NEUTROPHILS ABSOLUTE AUTO 3.04 K/uL (1.0-7.6); NEUTROPHILS PERCENT AUTO 58.7 % (40.0-78.1); PLATELET COUNT,PLT 46 K/uL (130-375); RED BLOOD CELL COUNT 3.24 M/uL (4.14-5.76); WHITE BLOOD CELL COUNT,WBC 5.2 K/uL (3.2-11.0)
[2023-03-23 20:11] LABS: IMMATURE GRAN ABSOLUTE AUTO 0.01 K/uL (0.00-0.23)
[2023-03-23 20:27] LABS: INR 1.4; PROTHROMBIN TIME 13.7 sec (9.2-10.6); PTT,PARTIAL THROMBOPLSTIN TIME 28.3 sec (21.8-27.3)
[2023-03-23 20:33] LABS: C-REACTIVE PROTEIN 1.16 mg/dL (0.0-0.3); TROPONIN I HIGH SENSITIVITY 18.1 pg/mL (<=60.3)
[2023-03-23] MEDS ORDERED: Sodium Chloride 0.9% 50 ML IV SCH (21:00)
[2023-03-23] MEDS ORDERED: Iopamidol 612 MG/ML 100 ML Bottle IV SCH (21:00)
[2023-03-23 21:09] LABS: A/G RATIO 0.6 (1.2-2.2); ALANINE AMINOTRANSFERASE,ALT 81 U/L (12-78); ALBUMIN 2.4 g/dL (3.4-5.0); ALKALINE PHOSPHATASE 163 U/L (46-116); ASPARTATE AMNIOTRANSFERASE,AST 155 U/L (15-37); BILIRUBIN TOTAL 3.8 mg/dL (0.2-1.0); BLOOD UREA NITROGEN,BUN 7 mg/dL (7-18); CALCIUM 7.8 mg/dL (8.5-10.1); CARBON DIOXIDE,CO2 22 mmol/L (21-32); CHLORIDE,CL 108 mmol/L (100-108); CREATININE 0.9 mg/dL (0.8-1.3); ESTIMATED GFR 104 mL/min (>60); GLUCOSE RANDOM 92 mg/dL (74-106); POTASSIUM,K 3.3 mmol/L (3.6-5.2); PROTEIN TOTAL,TP 6.6 g/dL (6.4-8.2); SODIUM,NA 140 mmol/L (140-148)
[2023-03-23 21:20] LABS: ANION GAP 13.3 mmol/L (5.0-14.0)
[2023-03-23 22:15] VITALS: BP 119/71; PULSE 60
== END 2023-03-23 22:45 | disposition home or self-care (01) ==
LOC: JP.ED 19:08
DX: J44.9 Chronic obstructive pulmonary disease, unspecified (principal); K74.60 Unspecified cirrhosis of liver; J20.9 Acute bronchitis, unspecified; R04.2 Hemoptysis; D69.6 Thrombocytopenia, unspecified; I10 Essential (primary) hypertension; Z86.16 Personal history of COVID-19; Z87.891 Personal history of nicotine dependence; Z88.8 Allergy status to other drugs, medicaments and biological substances; Z79.899 Other long term (current) drug therapy
CPT/HCPCS: 36415; 71046; 71275; 80053; 84484; 85025; 85379; 85610; 85730; 86140; 93005; 99284; J3490; Q9967

== ENCOUNTER 2024-02-24 07:38 | Emergency (ER) | payer MEDICAID ==
[2024-02-24 08:53] LABS: HEMOGLOBIN 11.9 g/dL (12.9-16.9); PLATELET COUNT,PLT 122 K/uL (130-375); WHITE BLOOD CELL COUNT,WBC 8.4 K/uL (3.2-11.0)
[2024-02-24 08:58] LABS: EOSINOPHILS ABSOLUTE MAN 0.34 K/uL (0.00-0.40); EOSINOPHILS PERCENT MAN 4 % (2-4); LYMPHOCYTES ABSOLUTE MAN 1.93 K/uL (0.8-3.3); LYMPHOCYTES PERCENT MAN 23 % (24-44); MONOCYTES ABSOLUTE MAN 0.59 K/uL (0.20-0.90); MONOCYTES PERCENT MAN 7 % (2-6); NEUTROPHILS ABSOLUTE MAN 5.54 K/uL (1.0-7.6); SEG NEUTROPHILS PERCENT MAN 66 % (36-66)
[2024-02-24] MEDS: Sodium Chloride 0.9% 1,000 ML IV SCH (08:58)
[2024-02-24] MEDS: Ketorolac 15 MG/ML SDV IVPUSH ONE (08:58)
[2024-02-24 08:59] LABS: A/G RATIO 0.6 (1.2-2.2); ALANINE AMINOTRANSFERASE,ALT 38 U/L (12-78); ALBUMIN 2.5 g/dL (3.4-5.0); ALKALINE PHOSPHATASE 140 U/L (46-116); ASPARTATE AMNIOTRANSFERASE,AST 79 U/L (15-37); BILIRUBIN TOTAL 3.3 mg/dL (0.2-1.0); BLOOD UREA NITROGEN,BUN 7 mg/dL (7-18); CALCIUM 8.3 mg/dL (8.5-10.1); CARBON DIOXIDE,CO2 25 mmol/L (21-32); CHLORIDE,CL 108 mmol/L (100-108); CREATININE 1.2 mg/dL (0.8-1.3); ESTIMATED GFR 73 mL/min (>60); GLUCOSE RANDOM 109 mg/dL (74-106); POTASSIUM,K 3.3 mmol/L (3.6-5.2); SODIUM,NA 143 mmol/L (140-148)
[2024-02-24] MEDS: Prochlorperazine 10 MG/2 ML SDV IVPUSH ONE (08:59)
[2024-02-24 09:01] LABS: ANION GAP 13.3 mmol/L (5.0-14.0); C-REACTIVE PROTEIN < 0.50 mg/dL (<0.50)
[2024-02-24 09:24] LABS: CORONAVIRUS COVID-19 NAA NEGATIVE (NEGATIVE); INFLUENZA A NAA NEGATIVE (NEGATIVE); INFLUENZA B NAA NEGATIVE (NEGATIVE); RESPIRATORY SYNCYTIAL VIR NAA NEGATIVE (NEGATIVE)
[2024-02-24] MEDS: Potassium Chloride 20 MEQ Tab.ER PO ONE (09:36)
[2024-02-24] MEDS: Alum Hydrox/Mag Hydrox/Simeth 15 ML, Lidocaine 2% 15 ML PO ONE (10:04)
[2024-02-24] MEDS: Sodium Chloride 0.9% 10 ML Syringe FLUSH PRN (10:16)
[2024-02-24] MEDS: Iopamidol 612 MG/ML 100 ML Bottle IV PRN (10:16)
[2024-02-24] MEDS: Sodium Chloride 0.9% 75 ML IV ONE (10:16)
[2024-02-24 10:52] VITALS: BP 120/70; PULSE 60
== END 2024-02-24 11:39 | disposition home or self-care (01) ==
LOC: JP.ED 07:38
DX: K70.31 Alcoholic cirrhosis of liver with ascites (principal); F10.10 Alcohol abuse, uncomplicated; I10 Essential (primary) hypertension; J44.9 Chronic obstructive pulmonary disease, unspecified; K21.9 Gastro-esophageal reflux disease without esophagitis; F17.200 Nicotine dependence, unspecified, uncomplicated; Z88.8 Allergy status to other drugs, medicaments and biological substances; Z79.899 Other long term (current) drug therapy; Z79.51 Long term (current) use of inhaled steroids; Y90.0 Blood alcohol level of less than 20 mg/100 ml
CPT/HCPCS: 0241U; 36415; 74177; 80053; 80307; 83690; 84484; 85025; 86140; 93005; 96361; 96374; 96375; 99284; A9270; J0780; J1885; J3490; J7030; Q9967

== ENCOUNTER 2024-04-25 14:22 | Emergency (ER) | payer MEDICAID ==
[2024-04-25 14:38] VITALS: BP 149/87
[2024-04-25 14:42] VITALS: PULSE 68
== END 2024-04-25 15:20 | disposition home or self-care (01) ==
LOC: JP.ED 14:22
DX: A69.20 Lyme disease, unspecified (principal); I10 Essential (primary) hypertension; E78.00 Pure hypercholesterolemia, unspecified; J44.9 Chronic obstructive pulmonary disease, unspecified; F17.210 Nicotine dependence, cigarettes, uncomplicated; Z88.1 Allergy status to other antibiotic agents; Z79.899 Other long term (current) drug therapy; Z79.51 Long term (current) use of inhaled steroids
CPT/HCPCS: 99283

== ENCOUNTER 2024-07-01 21:39 | Emergency (ER) | payer MEDICAID ==
[2024-07-01 21:51] VITALS: BP 141/91; PULSE 69
[2024-07-01 22:11] LABS: BASOPHILS ABSOLUTE AUTO 0.03 K/uL (0.00-0.10); BASOPHILS PERCENT AUTO 0.7 % (0.1-1.3); EOSINOPHILS ABSOLUTE AUTO 0.13 K/uL (0.00-0.40); EOSINOPHILS PERCENT AUTO 3.2 % (0.0-5.4); HEMATOCRIT 29.7 % (38.4-49.7); IMMATURE GRAN PERCENT AUTO 0.2 % (0.0-0.7); LYMPHOCYTES ABSOLUTE AUTO 0.93 K/uL (0.8-3.3); LYMPHOCYTES PERCENT AUTO 22.7 % (11.4-47.7); MEAN CORPUSCULAR HEMOGLOBIN 33.2 pg (31.6-35.5); MEAN CORPUSCULAR VOLUME 89.7 fL (81.4-99.0); MONOCYTES ABSOLUTE AUTO 0.66 K/uL (0.20-0.90); MONOCYTES PERCENT AUTO 16.1 % (3.3-12.6); NEUTROPHILS ABSOLUTE AUTO 2.34 K/uL (1.0-7.6); NEUTROPHILS PERCENT AUTO 57.1 % (40.0-78.1); PLATELET COUNT,PLT 43 K/uL (130-375); RED BLOOD CELL COUNT 3.31 M/uL (4.14-5.76); WHITE BLOOD CELL COUNT,WBC 4.1 K/uL (3.2-11.0)
[2024-07-01 22:12] LABS: IMMATURE GRAN ABSOLUTE AUTO 0.01 K/uL (0.00-0.23)
[2024-07-01 22:30] LABS: A/G RATIO 0.8 (1.2-2.2); ALANINE AMINOTRANSFERASE,ALT 118 U/L (12-78); ALBUMIN 2.7 g/dL (3.4-5.0); ALKALINE PHOSPHATASE 156 U/L (46-116); ASPARTATE AMNIOTRANSFERASE,AST 468 U/L (15-37); BILIRUBIN TOTAL 3.4 mg/dL (0.2-1.0); BLOOD UREA NITROGEN,BUN 8 mg/dL (7-18); CALCIUM 7.4 mg/dL (8.5-10.1); CARBON DIOXIDE,CO2 21 mmol/L (21-32); CHLORIDE,CL 107 mmol/L (100-108); CREATININE 1.1 mg/dL (0.8-1.3); EST CRCL DRUG DOSING (CG) 78.56 mL/min; ESTIMATED GFR 81 mL/min (>60); GLUCOSE RANDOM 91 mg/dL (74-106); PROTEIN TOTAL,TP 6.2 g/dL (6.4-8.2); SODIUM,NA 141 mmol/L (140-148)
[2024-07-01 22:31] LABS: ANION GAP 15.9 mmol/L (5.0-14.0); POTASSIUM,K 2.9 mmol/L (3.6-5.2)
[2024-07-01] MEDS: Potassium Chloride 20 MEQ Tab.ER PO ONE (22:46)
== END 2024-07-01 22:54 | disposition home or self-care (01) ==
LOC: JP.ED 21:39
DX: R07.89 Other chest pain (principal); K70.30 Alcoholic cirrhosis of liver without ascites; E87.6 Hypokalemia; E72.20 Disorder of urea cycle metabolism, unspecified; I10 Essential (primary) hypertension; J44.9 Chronic obstructive pulmonary disease, unspecified; K21.9 Gastro-esophageal reflux disease without esophagitis; Z90.49 Acquired absence of other specified parts of digestive tract; F17.210 Nicotine dependence, cigarettes, uncomplicated; Z79.899 Other long term (current) drug therapy; Z88.8 Allergy status to other drugs, medicaments and biological substances
CPT/HCPCS: 36415; 71046; 80053; 82140; 85025; 99285; A9270

== ENCOUNTER 2024-08-22 11:44 | Emergency (ER) | payer MEDICAID ==
[2024-08-22] MEDS: Lactated Ringers 1,000 ML IV SCH ×3 (12:16→14:18)
[2024-08-22] MEDS: Morphine 2 MG/ML SYRINGE IVPUSH ONE (12:16)
[2024-08-22] MEDS: Sodium Chloride 0.9% 10 ML Syringe FLUSH PRN (12:17)
[2024-08-22 12:20] LABS: BASOPHILS ABSOLUTE AUTO 0.04 K/uL (0.00-0.10); BASOPHILS PERCENT AUTO 0.2 % (0.1-1.3); EOSINOPHILS PERCENT AUTO 0.1 % (0.0-5.4); HEMOGLOBIN 14.7 g/dL (12.9-16.9); IMMATURE GRAN ABSOLUTE AUTO 0.04 K/uL (0.00-0.23); IMMATURE GRAN PERCENT AUTO 0.2 % (0.0-0.7); LYMPHOCYTES ABSOLUTE AUTO 1.08 K/uL (0.8-3.3); LYMPHOCYTES PERCENT AUTO 6.2 % (11.4-47.7); MEAN CORPUSCULAR HEMOGLOBIN 33.2 pg (31.6-35.5); MEAN CORPUSCULAR HGB CONC 35.9 g/dL (31.6-35.5); MEAN CORPUSCULAR VOLUME 92.6 fL (81.4-99.0); MONOCYTES ABSOLUTE AUTO 1.65 K/uL (0.20-0.90); MONOCYTES PERCENT AUTO 9.4 % (3.3-12.6); NEUTROPHILS ABSOLUTE AUTO 14.66 K/uL (1.0-7.6); NEUTROPHILS PERCENT AUTO 83.9 % (40.0-78.1); PLATELET COUNT,PLT 99 K/uL (130-375); RED BLOOD CELL COUNT 4.43 M/uL (4.14-5.76); WHITE BLOOD CELL COUNT,WBC 17.5 K/uL (3.2-11.0)
[2024-08-22 12:21] LABS: EOSINOPHILS ABSOLUTE AUTO 0.01 K/uL (0.00-0.40)
[2024-08-22 12:33] LABS: ANION GAP 11.9 mmol/L (5.0-14.0); BLOOD UREA NITROGEN,BUN 12 mg/dL (7-18); CARBON DIOXIDE,CO2 21 mmol/L (21-32); CHLORIDE,CL 107 mmol/L (100-108); CREATININE 1.7 mg/dL (0.8-1.3); ESTIMATED GFR 48 mL/min (>60); GLUCOSE RANDOM 112 mg/dL (74-106); POTASSIUM,K 3.7 mmol/L (3.6-5.2); SODIUM,NA 140 mmol/L (140-148)
[2024-08-22] MEDS: Diphtheria,Pertussis(Acell),Tetanus Vaccine 0.5 ML Syringe IM ONE (12:33)
[2024-08-22] MEDS: Morphine 4 MG/ML Syringe IVPUSH ONE (13:00)
[2024-08-22 14:20] VITALS: BP 104/55; PULSE 60
== END 2024-08-22 14:45 ==
LOC: JP.ED 11:44
DX: T22.222A Burn of second degree of left elbow, initial encounter (principal); T21.24XA Burn of second degree of lower back, initial encounter; T31.11 Burns involving 10-19% of body surface with 10-19% third degree burns; I10 Essential (primary) hypertension; E78.00 Pure hypercholesterolemia, unspecified; Z79.899 Other long term (current) drug therapy; Z23 Encounter for immunization; K21.9 Gastro-esophageal reflux disease without esophagitis; Z88.8 Allergy status to other drugs, medicaments and biological substances
CPT/HCPCS: 16030; 36415; 80048; 80307; 85025; 90471; 90715; 96361; 96374; 96376; 99285; J2270; J3490; J7120

== ENCOUNTER 2024-11-05 13:26 | Emergency (ER) | payer MEDICAID ==
[2024-11-05 15:29] VITALS: BP 160/86; PULSE 58
[2024-11-05 16:07] LABS: BASOPHILS ABSOLUTE AUTO 0.04 K/uL (0.00-0.10); BASOPHILS PERCENT AUTO 1.1 % (0.1-1.3); EOSINOPHILS ABSOLUTE AUTO 0.18 K/uL (0.00-0.40); EOSINOPHILS PERCENT AUTO 4.7 % (0.0-5.4); HEMATOCRIT 28.4 % (38.4-49.7); HEMOGLOBIN 9.7 g/dL (12.9-16.9); IMMATURE GRAN PERCENT AUTO 0.3 % (0.0-0.7); LYMPHOCYTES ABSOLUTE AUTO 1.35 K/uL (0.8-3.3); LYMPHOCYTES PERCENT AUTO 35.5 % (11.4-47.7); MEAN CORPUSCULAR HEMOGLOBIN 29.2 pg (31.6-35.5); MEAN CORPUSCULAR HGB CONC 34.2 g/dL (31.6-35.5); MEAN CORPUSCULAR VOLUME 85.5 fL (81.4-99.0); MONOCYTES ABSOLUTE AUTO 0.77 K/uL (0.20-0.90); MONOCYTES PERCENT AUTO 20.3 % (3.3-12.6); NEUTROPHILS ABSOLUTE AUTO 1.45 K/uL (1.0-7.6); NEUTROPHILS PERCENT AUTO 38.1 % (40.0-78.1); PLATELET COUNT,PLT 104 K/uL (130-375); RED BLOOD CELL COUNT 3.32 M/uL (4.14-5.76); WHITE BLOOD CELL COUNT,WBC 3.8 K/uL (3.2-11.0)
[2024-11-05 16:09] LABS: IMMATURE GRAN ABSOLUTE AUTO 0.01 K/uL (0.00-0.23)
[2024-11-05 16:30] LABS: A/G RATIO 0.7 (1.2-2.2); ALANINE AMINOTRANSFERASE,ALT 25 U/L (12-78); ALBUMIN 2.8 g/dL (3.4-5.0); ALKALINE PHOSPHATASE 125 U/L (46-116); ASPARTATE AMNIOTRANSFERASE,AST 41 U/L (15-37); BILIRUBIN TOTAL 1.9 mg/dL (0.2-1.0); BLOOD UREA NITROGEN,BUN 10 mg/dL (7-18); CALCIUM 8.6 mg/dL (8.5-10.1); CARBON DIOXIDE,CO2 24 mmol/L (21-32); CHLORIDE,CL 111 mmol/L (100-108); CREATININE 1.3 mg/dL (0.8-1.3); EST CRCL DRUG DOSING (CG) 66.47 mL/min; ESTIMATED GFR 66 mL/min (>60); GLUCOSE RANDOM 94 mg/dL (74-106); POTASSIUM,K 3.5 mmol/L (3.6-5.2); PROTEIN TOTAL,TP 6.7 g/dL (6.4-8.2); SODIUM,NA 144 mmol/L (140-148)
[2024-11-05 16:31] LABS: ANION GAP 12.5 mmol/L (5.0-14.0)
== END 2024-11-05 17:23 | disposition home or self-care (01) ==
LOC: JP.ED 13:26
DX: S06.0XAA Concussion with loss of consciousness status unknown, initial encounter (principal); I10 Essential (primary) hypertension; K21.9 Gastro-esophageal reflux disease without esophagitis; J44.9 Chronic obstructive pulmonary disease, unspecified; E78.00 Pure hypercholesterolemia, unspecified; Z88.8 Allergy status to other drugs, medicaments and biological substances; Z79.899 Other long term (current) drug therapy; Z90.49 Acquired absence of other specified parts of digestive tract; W00.9XXA Unspecified fall due to ice and snow, initial encounter
CPT/HCPCS: 36415; 70450; 80053; 80307; 82140; 85025; 99283; 99285

== ENCOUNTER 2025-03-01 04:21 | Observation (INO) | payer MEDICAID ==
[2025-03-01 04:56] LABS: BASOPHILS ABSOLUTE AUTO 0.05 K/uL (0.00-0.10); BASOPHILS PERCENT AUTO 0.9 % (0.1-1.3); EOSINOPHILS ABSOLUTE AUTO 0.26 K/uL (0.00-0.40); EOSINOPHILS PERCENT AUTO 4.6 % (0.0-5.4); HEMATOCRIT 33.4 % (38.4-49.7); HEMOGLOBIN 11.2 g/dL (12.9-16.9); IMMATURE GRAN PERCENT AUTO 0.2 % (0.0-0.7); LYMPHOCYTES ABSOLUTE AUTO 1.55 K/uL (0.8-3.3); LYMPHOCYTES PERCENT AUTO 27.6 % (11.4-47.7); MEAN CORPUSCULAR HEMOGLOBIN 30.4 pg (31.6-35.5); MEAN CORPUSCULAR HGB CONC 33.5 g/dL (31.6-35.5); MEAN CORPUSCULAR VOLUME 90.8 fL (81.4-99.0); MONOCYTES ABSOLUTE AUTO 1.14 K/uL (0.20-0.90); MONOCYTES PERCENT AUTO 20.3 % (3.3-12.6); NEUTROPHILS PERCENT AUTO 46.4 % (40.0-78.1); PLATELET COUNT,PLT 87 K/uL (130-375); WHITE BLOOD CELL COUNT,WBC 5.6 K/uL (3.2-11.0)
[2025-03-01 04:57] LABS: IMMATURE GRAN ABSOLUTE AUTO 0.01 K/uL (0.00-0.23)
[2025-03-01 05:00] LABS: RED BLOOD CELL COUNT 3.68 M/uL (4.14-5.76)
[2025-03-01 05:03] LABS: INR 1.3; PROTHROMBIN TIME 13.2 sec (9.2-10.6)
[2025-03-01 05:08] LABS: A/G RATIO 0.7 (1.2-2.2); ALANINE AMINOTRANSFERASE,ALT 29 U/L (12-78); ALBUMIN 2.6 g/dL (3.4-5.0); ALKALINE PHOSPHATASE 164 U/L (46-116); ASPARTATE AMNIOTRANSFERASE,AST 34 U/L (15-37); BILIRUBIN TOTAL 2.2 mg/dL (0.2-1.0); BLOOD UREA NITROGEN,BUN 7 mg/dL (7-18); CALCIUM 8.5 mg/dL (8.5-10.1); CARBON DIOXIDE,CO2 25 mmol/L (21-32); CHLORIDE,CL 111 mmol/L (100-108); CREATININE 1.2 mg/dL (0.8-1.3); EST CRCL DRUG DOSING (CG) 72.01 mL/min; ESTIMATED GFR 73 mL/min (>60); GLUCOSE RANDOM 108 mg/dL (74-106); POTASSIUM,K 3.2 mmol/L (3.6-5.2); PROTEIN TOTAL,TP 6.3 g/dL (6.4-8.2); SODIUM,NA 146 mmol/L (140-148)
[2025-03-01 05:11] LABS: ANION GAP 13.2 mmol/L (5.0-14.0)
[2025-03-01] MEDS: Potassium Chloride 20 MEQ Tab.ER PO ONE (06:01)
[2025-03-01] MEDS: Lactulose Soln 10 GM/15 ML 15 ML UD Cup PO ONE (06:01)
[2025-03-01] MEDS ORDERED: Ondansetron 4 MG Tab.DIS PO PRN (09:42)
[2025-03-01] MEDS ORDERED: Sennosides/Docusate Sodium 50-8.6 MG Tab PO PRN (09:42)
[2025-03-01] MEDS ORDERED: Magnesium Hydroxide 400 MG/5 ML Susp 30 ML Cup PO PRN (09:42)
[2025-03-01] MEDS ORDERED: Ondansetron 4 MG/2 ML SDV IV PRN (09:42)
[2025-03-01] MEDS ORDERED: Acetaminophen/HYDROcodone 325-5 MG Tab PO PRN (09:42)
[2025-03-01] MEDS ORDERED: Acetaminophen 325 MG Tab PO PRN (09:42)
[2025-03-01] MEDS ORDERED: LORazepam 2 MG/ML SDV IVPUSH PRN (09:42)
[2025-03-01] MEDS: Sodium Chloride 0.9% 1,000 ML IV SCH (10:12)
[2025-03-01] MEDS: Magnesium Sulfate 2 GM/50 mL 2 GM in Premix Bag 1 BAG IV ONE (20:43)
[2025-03-02 05:33] VITALS: BP 133/80; PULSE 61
[2025-03-02 05:45] LABS: HEMATOCRIT 33.9 % (38.4-49.7); HEMOGLOBIN 11.4 g/dL (12.9-16.9); MEAN CORPUSCULAR HEMOGLOBIN 30.4 pg (31.6-35.5); MEAN CORPUSCULAR HGB CONC 33.6 g/dL (31.6-35.5); MEAN CORPUSCULAR VOLUME 90.4 fL (81.4-99.0); RED BLOOD CELL COUNT 3.75 M/uL (4.14-5.76); WHITE BLOOD CELL COUNT,WBC 4.5 K/uL (3.2-11.0)
[2025-03-02 06:04] LABS: A/G RATIO 0.7 (1.2-2.2); ALANINE AMINOTRANSFERASE,ALT 28 U/L (12-78); ALBUMIN 2.4 g/dL (3.4-5.0); ALKALINE PHOSPHATASE 105 U/L (46-116); ASPARTATE AMNIOTRANSFERASE,AST 35 U/L (15-37); BILIRUBIN TOTAL 2.6 mg/dL (0.2-1.0); BLOOD UREA NITROGEN,BUN 8 mg/dL (7-18); CALCIUM 7.7 mg/dL (8.5-10.1); CARBON DIOXIDE,CO2 22 mmol/L (21-32); CHLORIDE,CL 111 mmol/L (100-108); CREATININE 1.2 mg/dL (0.8-1.3); EST CRCL DRUG DOSING (CG) 72.01 mL/min; ESTIMATED GFR 73 mL/min (>60); GLUCOSE RANDOM 114 mg/dL (74-106); MAGNESIUM 1.7 mg/dL (1.8-2.4); POTASSIUM,K 3.4 mmol/L (3.6-5.2); PROTEIN TOTAL,TP 5.9 g/dL (6.4-8.2); SODIUM,NA 142 mmol/L (140-148); TROPONIN I HIGH SENSITIVITY 19.4 pg/mL (<=60.3)
[2025-03-02 06:17] LABS: ANION GAP 12.4 mmol/L (5.0-14.0)
[2025-03-02] MEDS: Lactulose Soln 10 GM/15 ML 15 ML UD Cup PO ONE (07:57)
[2025-03-02] MEDS ORDERED: Lactulose Soln 10 GM/15 ML 15 ML UD Cup PO SCH (09:00)
== END 2025-03-02 10:15 | disposition home or self-care (01) ==
LOC: JP.ED 04:21 → JP.MS 08:21
PROVIDERS: ADMIT Hospitalist; ATTEND Hospitalist
DX: K85.20 Alcohol induced acute pancreatitis without necrosis or infection (principal); E72.20 Disorder of urea cycle metabolism, unspecified; R07.9 Chest pain, unspecified; I10 Essential (primary) hypertension; E78.00 Pure hypercholesterolemia, unspecified; J44.9 Chronic obstructive pulmonary disease, unspecified; F32.A Depression, unspecified; K21.9 Gastro-esophageal reflux disease without esophagitis; F17.210 Nicotine dependence, cigarettes, uncomplicated; Z79.82 Long term (current) use of aspirin; Z79.899 Other long term (current) drug therapy
CPT/HCPCS: 36415; 70450; 71046; 80053; 80307; 82140; 83605; 83690; 83735; 84484; 85025; 85027; 85610; 93005; 99222; 99239; 99285; A9270; J3475; J7030; 96365; 96366; G0378

== ENCOUNTER 2025-08-19 12:07 | Emergency (ER) | payer MEDICAID ==
[2025-08-19 12:18] VITALS: BP 141/85; PULSE 87
[2025-08-19] MEDS: Ondansetron 4 MG Tab.DIS PO ONE (13:02)
[2025-08-19 13:07] LABS: BASOPHILS ABSOLUTE AUTO 0.06 K/uL (0.00-0.10); BASOPHILS PERCENT AUTO 1.0 % (0.1-1.3); EOSINOPHILS ABSOLUTE AUTO 0.38 K/uL (0.00-0.40); EOSINOPHILS PERCENT AUTO 6.6 % (0.0-5.4); IMMATURE GRAN PERCENT AUTO 0.2 % (0.0-0.7); LYMPHOCYTES ABSOLUTE AUTO 1.54 K/uL (0.8-3.3); LYMPHOCYTES PERCENT AUTO 26.6 % (11.4-47.7); MONOCYTES ABSOLUTE AUTO 1.41 K/uL (0.20-0.90); MONOCYTES PERCENT AUTO 24.4 % (3.3-12.6); NEUTROPHILS ABSOLUTE AUTO 2.38 K/uL (1.0-7.6); NEUTROPHILS PERCENT AUTO 41.2 % (40.0-78.1); PLATELET COUNT,PLT 118 K/uL (130-375); RED BLOOD CELL COUNT 3.61 M/uL (4.14-5.76); WHITE BLOOD CELL COUNT,WBC 5.8 K/uL (3.2-11.0)
[2025-08-19 13:08] LABS: IMMATURE GRAN ABSOLUTE AUTO 0.01 K/uL (0.00-0.23)
[2025-08-19 13:28] LABS: A/G RATIO 0.6 (1.2-2.2); ALANINE AMINOTRANSFERASE,ALT 31 U/L (12-78); ASPARTATE AMNIOTRANSFERASE,AST 54 U/L (15-37); BILIRUBIN TOTAL 1.7 mg/dL (0.2-1.0); BLOOD UREA NITROGEN,BUN 8 mg/dL (7-18); CARBON DIOXIDE,CO2 25 mmol/L (21-32); CHLORIDE,CL 113 mmol/L (100-108); CREATININE 1.3 mg/dL (0.8-1.3); ESTIMATED GFR 66 mL/min (>60); GLUCOSE RANDOM 88 mg/dL (74-106); POTASSIUM,K 3.7 mmol/L (3.6-5.2); PROTEIN TOTAL,TP 6.0 g/dL (6.4-8.2); SODIUM,NA 145 mmol/L (140-148); TROPONIN I HIGH SENSITIVITY 9.5 pg/mL (<=60.3)
== END 2025-08-19 14:50 | disposition home or self-care (01) ==
LOC: JP.ED 12:07
DX: R11.0 Nausea (principal); E78.00 Pure hypercholesterolemia, unspecified; I10 Essential (primary) hypertension; J44.9 Chronic obstructive pulmonary disease, unspecified; K21.9 Gastro-esophageal reflux disease without esophagitis; Z86.16 Personal history of COVID-19; F17.210 Nicotine dependence, cigarettes, uncomplicated; Z88.1 Allergy status to other antibiotic agents; Z79.899 Other long term (current) drug therapy; Z79.82 Long term (current) use of aspirin
CPT/HCPCS: 36415; 71045; 80053; 83605; 84484; 85025; 93005; 99285; A9270; Q0162

== ENCOUNTER 2025-08-28 09:50 | Emergency (ER) | payer MEDICAID ==
[2025-08-28 11:20] LABS: APPEARANCE,URINE CLEAR (CLEAR); GLUCOSE,URINE NEGATIVE (NEGATIVE); OCCULT BLOOD,URINE TRACE-LYSED (NEGATIVE)
[2025-08-28 11:28] LABS: BASOPHILS ABSOLUTE AUTO 0.07 K/uL (0.00-0.10); BASOPHILS PERCENT AUTO 1.2 % (0.1-1.3); EOSINOPHILS ABSOLUTE AUTO 0.66 K/uL (0.00-0.40); EOSINOPHILS PERCENT AUTO 11.1 % (0.0-5.4); IMMATURE GRAN PERCENT AUTO 0.2 % (0.0-0.7); LYMPHOCYTES ABSOLUTE AUTO 1.56 K/uL (0.8-3.3); LYMPHOCYTES PERCENT AUTO 26.4 % (11.4-47.7); MONOCYTES ABSOLUTE AUTO 1.22 K/uL (0.20-0.90); MONOCYTES PERCENT AUTO 20.6 % (3.3-12.6); NEUTROPHILS ABSOLUTE AUTO 2.40 K/uL (1.0-7.6); NEUTROPHILS PERCENT AUTO 40.5 % (40.0-78.1); PLATELET COUNT,PLT 114 K/uL (130-375); RED BLOOD CELL COUNT 4.10 M/uL (4.14-5.76); WHITE BLOOD CELL COUNT,WBC 5.9 K/uL (3.2-11.0)
[2025-08-28 11:39] LABS: SQUAMOUS EPITHELIAL CELLS,UR NOT SEEN /HPF; UROTHELIAL CELLS,URINE NOT SEEN /HPF
[2025-08-28 11:45] LABS: A/G RATIO 0.7 (1.2-2.2); ALANINE AMINOTRANSFERASE,ALT 32 U/L (12-78); ASPARTATE AMNIOTRANSFERASE,AST 51 U/L (15-37); BILIRUBIN TOTAL 2.4 mg/dL (0.2-1.0); BLOOD UREA NITROGEN,BUN 8 mg/dL (7-18); CARBON DIOXIDE,CO2 23 mmol/L (21-32); CHLORIDE,CL 113 mmol/L (100-108); CREATININE 1.1 mg/dL (0.8-1.3); EST CRCL DRUG DOSING (CG) 77.66 mL/min; ESTIMATED GFR 80 mL/min (>60); GLUCOSE RANDOM 128 mg/dL (74-106); POTASSIUM,K 3.6 mmol/L (3.6-5.2); PROTEIN TOTAL,TP 6.5 g/dL (6.4-8.2); SODIUM,NA 142 mmol/L (140-148)
[2025-08-28 11:54] LABS: IMMATURE GRAN ABSOLUTE AUTO 0.01 K/uL (0.00-0.23)
[2025-08-28] MEDS: Lactulose Soln 10 GM/15 ML 15 ML UD Cup PO ONE (12:21)
[2025-08-28 12:30] VITALS: BP 147/83; PULSE 51
[2025-08-28] MEDS: Ondansetron 4 MG/2 ML SDV IVPUSH ONE (12:44)
== END 2025-08-28 13:27 | disposition home or self-care (01) ==
LOC: JP.ED 09:50
DX: R41.0 Disorientation, unspecified (principal); E72.20 Disorder of urea cycle metabolism, unspecified; E86.0 Dehydration; I10 Essential (primary) hypertension; E78.00 Pure hypercholesterolemia, unspecified; J44.9 Chronic obstructive pulmonary disease, unspecified; M19.90 Unspecified osteoarthritis, unspecified site; Z86.16 Personal history of COVID-19; Z90.49 Acquired absence of other specified parts of digestive tract; Z88.8 Allergy status to other drugs, medicaments and biological substances; Z79.82 Long term (current) use of aspirin; Z79.899 Other long term (current) drug therapy
CPT/HCPCS: 36415; 80053; 81001; 82140; 82947; 85025; 96360; 99285; A9270; J7030

== ENCOUNTER 2025-09-04 21:58 | Emergency (ER) | payer MEDICAID ==
[2025-09-04 22:05] VITALS: BP 180/89; PULSE 57
== END 2025-09-04 23:46 | disposition home or self-care (01) ==
LOC: JP.ED 21:58
DX: E72.20 Disorder of urea cycle metabolism, unspecified (principal); I10 Essential (primary) hypertension; E78.00 Pure hypercholesterolemia, unspecified; J44.9 Chronic obstructive pulmonary disease, unspecified; M19.90 Unspecified osteoarthritis, unspecified site; F17.200 Nicotine dependence, unspecified, uncomplicated; Z86.16 Personal history of COVID-19; Z90.49 Acquired absence of other specified parts of digestive tract; Z88.8 Allergy status to other drugs, medicaments and biological substances; Z79.82 Long term (current) use of aspirin; Z79.899 Other long term (current) drug therapy
CPT/HCPCS: 36415; 82140; 99283

== ENCOUNTER 2025-09-19 08:44 | Inpatient (IN) | payer MEDICAID ==
[2025-09-19 09:50] LABS: BASOPHILS ABSOLUTE AUTO 0.05 K/uL (0.00-0.10); BASOPHILS PERCENT AUTO 0.9 % (0.1-1.3); EOSINOPHILS ABSOLUTE AUTO 0.32 K/uL (0.00-0.40); EOSINOPHILS PERCENT AUTO 5.7 % (0.0-5.4); IMMATURE GRAN PERCENT AUTO 0.2 % (0.0-0.7); LYMPHOCYTES ABSOLUTE AUTO 1.40 K/uL (0.8-3.3); LYMPHOCYTES PERCENT AUTO 25.0 % (11.4-47.7); MONOCYTES ABSOLUTE AUTO 0.64 K/uL (0.20-0.90); MONOCYTES PERCENT AUTO 11.4 % (3.3-12.6); NEUTROPHILS ABSOLUTE AUTO 3.17 K/uL (1.0-7.6); NEUTROPHILS PERCENT AUTO 56.8 % (40.0-78.1); PLATELET COUNT,PLT 115 K/uL (130-375); RED BLOOD CELL COUNT 4.12 M/uL (4.14-5.76); WHITE BLOOD CELL COUNT,WBC 5.6 K/uL (3.2-11.0)
[2025-09-19 09:52] LABS: IMMATURE GRAN ABSOLUTE AUTO 0.01 K/uL (0.00-0.23)
[2025-09-19 10:12] LABS: INR 1.2
[2025-09-19 10:13] LABS: A/G RATIO 0.7 (1.2-2.2); ALANINE AMINOTRANSFERASE,ALT 37 U/L (12-78); ASPARTATE AMNIOTRANSFERASE,AST 61 U/L (15-37); BILIRUBIN TOTAL 2.0 mg/dL (0.2-1.0); BLOOD UREA NITROGEN,BUN 9 mg/dL (7-18); CARBON DIOXIDE,CO2 25 mmol/L (21-32); CHLORIDE,CL 113 mmol/L (100-108); CREATININE 1.6 mg/dL (0.8-1.3); EST CRCL DRUG DOSING (CG) 48.18 mL/min; ESTIMATED GFR 51 mL/min (>60); GLUCOSE RANDOM 98 mg/dL (74-106); POTASSIUM,K 4.0 mmol/L (3.6-5.2); PROTEIN TOTAL,TP 7.0 g/dL (6.4-8.2); SODIUM,NA 148 mmol/L (140-148)
[2025-09-19] MEDS: Lactulose Soln 10 GM/15 ML 15 ML UD Cup PO ONE ×2 (13:09→20:08)
[2025-09-19] MEDS: LORazepam 2 MG/ML SDV IVPUSH ONE (13:25)
[2025-09-19] MEDS: LORazepam 2 MG/ML SDV IV SCH (14:46)
[2025-09-19] MEDS ORDERED: Ondansetron 4 MG Tab.DIS PO PRN (15:06)
[2025-09-19] MEDS ORDERED: Ondansetron 4 MG/2 ML SDV IV PRN (15:06)
[2025-09-19] MEDS ORDERED: Magnesium Hydroxide 400 MG/5 ML Susp 30 ML Cup PO PRN (15:06)
[2025-09-19] MEDS ORDERED: Sennosides/Docusate Sodium 50-8.6 MG Tab PO PRN (15:06)
[2025-09-19] MEDS: MVI, Adult with Vitamin K 10 ML, Thiamine 100 MG, Folic Acid 1 MG, Magnesium Sulf 1 GM/... IV ONE (15:34)
[2025-09-19] MEDS: LORazepam 2 MG/ML SDV ONE (16:01)
[2025-09-19 16:28] LABS: APPEARANCE,URINE CLEAR (CLEAR); GLUCOSE,URINE NEGATIVE (NEGATIVE); OCCULT BLOOD,URINE SMALL (NEGATIVE)
[2025-09-19 16:41] LABS: SQUAMOUS EPITHELIAL CELLS,UR RARE /HPF; UROTHELIAL CELLS,URINE NOT SEEN /HPF
[2025-09-19 16:42] LABS: AMPHETAMINES SCREEN, URINE NEGATIVE (NEGATIVE); METHADONE SCREEN, URINE NEGATIVE (NEGATIVE); METHAMPHETAMINES SCREEN, URINE NEGATIVE (NEGATIVE); OXYCODONE SCREEN,URINE NEGATIVE (NEGATIVE); PROPOXYPHENE SCREEN,URINE NEGATIVE (NEGATIVE); THC SCREEN,URINE 50 NG/ML NEGATIVE (NEGATIVE)
[2025-09-20 05:39] LABS: PLATELET COUNT,PLT 96.0 K/uL (130-375); RED BLOOD CELL COUNT 3.66 M/uL (4.14-5.76); WHITE BLOOD CELL COUNT,WBC 7.3 K/uL (3.2-11.0)
[2025-09-20 06:01] LABS: A/G RATIO 0.7 (1.2-2.2); ALANINE AMINOTRANSFERASE,ALT 32 U/L (12-78); ASPARTATE AMNIOTRANSFERASE,AST 55 U/L (15-37); BILIRUBIN TOTAL 3.0 mg/dL (0.2-1.0); BLOOD UREA NITROGEN,BUN 10 mg/dL (7-18); CARBON DIOXIDE,CO2 23 mmol/L (21-32); CHLORIDE,CL 116 mmol/L (100-108); CREATININE 1.4 mg/dL (0.8-1.3); EST CRCL DRUG DOSING (CG) 55.35 mL/min; ESTIMATED GFR 60 mL/min (>60); GLUCOSE RANDOM 85 mg/dL (74-106); POTASSIUM,K 3.8 mmol/L (3.6-5.2); PROTEIN TOTAL,TP 6.1 g/dL (6.4-8.2); SODIUM,NA 148 mmol/L (140-148)
[2025-09-20] MEDS: Lactulose Soln 10 GM/15 ML 15 ML UD Cup PO SCH (14:39)
[2025-09-20] MEDS: Lactulose Soln 10 GM/15 ML 15 ML UD Cup PO ONE (20:55)
[2025-09-21 05:44] LABS: PLATELET COUNT,PLT 84.0 K/uL (130-375); RED BLOOD CELL COUNT 3.62 M/uL (4.14-5.76); WHITE BLOOD CELL COUNT,WBC 6.7 K/uL (3.2-11.0)
[2025-09-21 06:16] LABS: A/G RATIO 0.7 (1.2-2.2); ALANINE AMINOTRANSFERASE,ALT 31 U/L (12-78); ASPARTATE AMNIOTRANSFERASE,AST 65 U/L (15-37); BILIRUBIN TOTAL 3.2 mg/dL (0.2-1.0); BLOOD UREA NITROGEN,BUN 12 mg/dL (7-18); CARBON DIOXIDE,CO2 21 mmol/L (21-32); CHLORIDE,CL 118 mmol/L (100-108); CREATININE 1.3 mg/dL (0.8-1.3); EST CRCL DRUG DOSING (CG) 59.60 mL/min; ESTIMATED GFR 66 mL/min (>60); GLUCOSE RANDOM 85 mg/dL (74-106); POTASSIUM,K 3.4 mmol/L (3.6-5.2); PROTEIN TOTAL,TP 5.9 g/dL (6.4-8.2); SODIUM,NA 148 mmol/L (140-148)
[2025-09-21] MEDS: Potassium Chloride 20 MEQ Tab.ER PO ONE (11:43)
[2025-09-21] MEDS: Lactulose Soln 10 GM/15 ML 15 ML UD Cup PO SCH (20:54)
[2025-09-22 05:40] LABS: PLATELET COUNT,PLT 78.0 K/uL (130-375); RED BLOOD CELL COUNT 3.65 M/uL (4.14-5.76); WHITE BLOOD CELL COUNT,WBC 6.7 K/uL (3.2-11.0)
[2025-09-22 05:57] LABS: INR 1.4
[2025-09-22 06:00] LABS: A/G RATIO 0.7 (1.2-2.2); ALANINE AMINOTRANSFERASE,ALT 32 U/L (12-78); ASPARTATE AMNIOTRANSFERASE,AST 100 U/L (15-37); BILIRUBIN TOTAL 3.2 mg/dL (0.2-1.0); BLOOD UREA NITROGEN,BUN 11 mg/dL (7-18); CARBON DIOXIDE,CO2 20 mmol/L (21-32); CHLORIDE,CL 117 mmol/L (100-108); CREATININE 1.1 mg/dL (0.8-1.3); EST CRCL DRUG DOSING (CG) 70.44 mL/min; ESTIMATED GFR 80 mL/min (>60); GLUCOSE RANDOM 84 mg/dL (74-106); POTASSIUM,K 3.4 mmol/L (3.6-5.2); PROTEIN TOTAL,TP 5.8 g/dL (6.4-8.2); SODIUM,NA 148 mmol/L (140-148)
[2025-09-22] MEDS ORDERED: Potassium Chloride 20 MEQ Tab.ER PO ONE (08:00)
[2025-09-23 06:38] LABS: PLATELET COUNT,PLT 74.0 K/uL (130-375); RED BLOOD CELL COUNT 3.8 M/uL (4.14-5.76); WHITE BLOOD CELL COUNT,WBC 8.1 K/uL (3.2-11.0)
[2025-09-23 06:48] LABS: ALANINE AMINOTRANSFERASE,ALT 42 U/L (12-78); ASPARTATE AMNIOTRANSFERASE,AST 136 U/L (15-37); BILIRUBIN TOTAL 3.3 mg/dL (0.2-1.0); BLOOD UREA NITROGEN,BUN 12 mg/dL (7-18); CARBON DIOXIDE,CO2 19 mmol/L (21-32); CHLORIDE,CL 116 mmol/L (100-108); CREATININE 1.1 mg/dL (0.8-1.3); EST CRCL DRUG DOSING (CG) 70.44 mL/min; ESTIMATED GFR 80 mL/min (>60); GLUCOSE RANDOM 84 mg/dL (74-106); POTASSIUM,K 3.4 mmol/L (3.6-5.2); PROTEIN TOTAL,TP 6.1 g/dL (6.4-8.2); SODIUM,NA 147 mmol/L (140-148)
[2025-09-23 06:49] LABS: A/G RATIO 0.7 (1.2-2.2)
[2025-09-23] MEDS ORDERED: PHENobarbital Sodium 65 MG/ML SDV IVPUSH PRN (15:00)
[2025-09-23] MEDS: PHENobarbitaL sodium 260 MG in Sodium Chloride 0.9% 100 ML IV ONE (15:03)
[2025-09-23] MEDS: Metoprolol Tartrate 5 MG/5 ML SDV IVPUSH PRN (21:49)
[2025-09-24 06:22] LABS: BLOOD UREA NITROGEN,BUN 12.0 mg/dL (7-18); CARBON DIOXIDE,CO2 18.0 mmol/L (21-32); CHLORIDE,CL 116.0 mmol/L (100-108); CREATININE 1.0 mg/dL (0.8-1.3); EST CRCL DRUG DOSING (CG) 77.48 mL/min; ESTIMATED GFR 90.0 mL/min (>60); GLUCOSE RANDOM 84.0 mg/dL (74-106); POTASSIUM,K 3.7 mmol/L (3.6-5.2); SODIUM,NA 146.0 mmol/L (140-148)
[2025-09-24] MEDS: Lactulose Soln 10 GM/15 ML ML 473 ML Bottle RECTAL ONE (09:35)
[2025-09-25 06:02] LABS: BLOOD UREA NITROGEN,BUN 8.0 mg/dL (7-18); CARBON DIOXIDE,CO2 19.0 mmol/L (21-32); CHLORIDE,CL 117.0 mmol/L (100-108); CREATININE 1.0 mg/dL (0.8-1.3); EST CRCL DRUG DOSING (CG) 77.48 mL/min; ESTIMATED GFR 90.0 mL/min (>60); GLUCOSE RANDOM 93.0 mg/dL (74-106); POTASSIUM,K 3.5 mmol/L (3.6-5.2); SODIUM,NA 146.0 mmol/L (140-148)
[2025-09-25] MEDS: Lactulose Soln 10 GM/15 ML 15 ML UD Cup PO SCH (08:19)
[2025-09-25] MEDS: Potassium Chloride 20 MEQ Tab.ER PO ONE (17:03)
[2025-09-26 06:15] LABS: BLOOD UREA NITROGEN,BUN 10.0 mg/dL (7-18); CARBON DIOXIDE,CO2 18.0 mmol/L (21-32); CHLORIDE,CL 116.0 mmol/L (100-108); CREATININE 1.0 mg/dL (0.8-1.3); EST CRCL DRUG DOSING (CG) 77.48 mL/min; ESTIMATED GFR 90.0 mL/min (>60); GLUCOSE RANDOM 93.0 mg/dL (74-106); POTASSIUM,K 3.5 mmol/L (3.6-5.2); SODIUM,NA 143.0 mmol/L (140-148)
[2025-09-26] MEDS: Potassium Chloride 20 MEQ Tab.ER PO ONE (08:59)
[2025-09-26 12:24] VITALS: BP 126/81; PULSE 65
== END 2025-09-26 12:20 | disposition home or self-care (01) | DRG 442 ==
LOC: JP.ED 08:44 → JP.ICU 13:47
PROVIDERS: ADMIT Internal Medicine; ATTEND Hospitalist
DX: K76.82 Hepatic encephalopathy (principal); E72.20 Disorder of urea cycle metabolism, unspecified; F10.931 Alcohol use, unspecified with withdrawal delirium; F10.921 Alcohol use, unspecified with intoxication delirium; E87.6 Hypokalemia; Y90.7 Blood alcohol level of 200-239 mg/100 ml; K70.31 Alcoholic cirrhosis of liver with ascites; H54.7 Unspecified visual loss; E78.00 Pure hypercholesterolemia, unspecified; I10 Essential (primary) hypertension; K21.9 Gastro-esophageal reflux disease without esophagitis; M19.90 Unspecified osteoarthritis, unspecified site; G89.29 Other chronic pain; N40.0 Benign prostatic hyperplasia without lower urinary tract symptoms; F41.9 Anxiety disorder, unspecified; F32.A Depression, unspecified; Z79.82 Long term (current) use of aspirin; Z79.899 Other long term (current) drug therapy; Z79.1 Long term (current) use of non-steroidal anti-inflammatories (NSAID); Z98.890 Other specified postprocedural states; Z98.49 Cataract extraction status, unspecified eye; Z96.649 Presence of unspecified artificial hip joint; Z72.0 Tobacco use
CPT/HCPCS: 36415; 70450; 71045; 71045-26; 80048; 80053; 80305-QW; 80307; 81001; 82140; 85025; 85027; 85610; 93005; 97163-GP; 97530-GP; 99223; 99232; 99233; 99238; A9270-GY; J0616; J1630; J1808; J2060; J2270; J3411; J3480; J7030

== ENCOUNTER 2025-10-29 16:52 | Emergency (ER) | payer MEDICAID ==
[2025-10-29] MEDS ORDERED: Sodium Chloride 0.9% 10 ML Syringe FLUSH PRN (17:32)
[2025-10-29 17:42] LABS: BASOPHILS ABSOLUTE AUTO 0.05 K/uL (0.00-0.10); BASOPHILS PERCENT AUTO 0.9 % (0.1-1.3); EOSINOPHILS ABSOLUTE AUTO 0.42 K/uL (0.00-0.40); EOSINOPHILS PERCENT AUTO 7.6 % (0.0-5.4); IMMATURE GRAN ABSOLUTE AUTO 0.01 K/uL (0.00-0.23); IMMATURE GRAN PERCENT AUTO 0.2 % (0.0-0.7); LYMPHOCYTES ABSOLUTE AUTO 2.00 K/uL (0.8-3.3); LYMPHOCYTES PERCENT AUTO 36.0 % (11.4-47.7); MONOCYTES ABSOLUTE AUTO 1.34 K/uL (0.20-0.90); MONOCYTES PERCENT AUTO 24.1 % (3.3-12.6); NEUTROPHILS ABSOLUTE AUTO 1.73 K/uL (1.0-7.6); NEUTROPHILS PERCENT AUTO 31.2 % (40.0-78.1); PLATELET COUNT,PLT 100 K/uL (130-375); RED BLOOD CELL COUNT 3.82 M/uL (4.14-5.76); WHITE BLOOD CELL COUNT,WBC 5.6 K/uL (3.2-11.0)
[2025-10-29 17:47] LABS: BASE EXCESS VENOUS -4.6 mm/L; BICARBONATE,VENOUS 18.2 mmol/L; O2 SATURATION VENOUS 89.4; OXYHEMOGLOBIN 87.1 %; PCO2 VENOUS 28.1 mm/Hg; PH,VENOUS 7.426 (7.350-7.450); PO2 VENOUS 60.7 mm/Hg; TOTAL HEMOGLOBIN 12.6 g/dL (13.5-18.0)
[2025-10-29 17:49] LABS: INR 1.3; PTT,PARTIAL THROMBOPLSTIN TIME 26.7 sec (21.8-27.3)
[2025-10-29] MEDS: Iopamidol 755 Mg/ML 100 ML Bottle IV SCH (17:50)
[2025-10-29 17:53] LABS: A/G RATIO 0.6 (1.2-2.2); ALANINE AMINOTRANSFERASE,ALT 23 U/L (12-78); ASPARTATE AMNIOTRANSFERASE,AST 33 U/L (15-37); BILIRUBIN TOTAL 1.9 mg/dL (0.2-1.0); BLOOD UREA NITROGEN,BUN 12 mg/dL (7-18); CARBON DIOXIDE,CO2 20 mmol/L (21-32); CHLORIDE,CL 114 mmol/L (100-108); CREATININE 1.4 mg/dL (0.8-1.3); EST CRCL DRUG DOSING (CG) 61.02 mL/min; ESTIMATED GFR 60 mL/min (>60); GLUCOSE RANDOM 130 mg/dL (74-106); POTASSIUM,K 3.6 mmol/L (3.6-5.2); PROTEIN TOTAL,TP 6.8 g/dL (6.4-8.2); SODIUM,NA 144 mmol/L (140-148); TROPONIN I HIGH SENSITIVITY 8.6 pg/mL (<=60.3)
[2025-10-29] MEDS: Cyanocobalamin (Vitamin B12) 1,000 MCG/ML SDV IM ONE (18:03)
[2025-10-29] MEDS: MVI, Adult with Vitamin K 10 ML, Thiamine 100 MG, Folic Acid 1 MG, Magnesium Sulf 1 GM/... IV SCH (18:15)
[2025-10-29] MEDS: Lactulose Soln 10 GM/15 ML 15 ML UD Cup PO ONE (18:20)
[2025-10-29 18:25] LABS: APPEARANCE,URINE CLEAR (CLEAR); GLUCOSE,URINE NEGATIVE (NEGATIVE); OCCULT BLOOD,URINE TRACE-INTACT (NEGATIVE)
[2025-10-29 18:28] VITALS: PULSE 51
[2025-10-29 18:30] LABS: SQUAMOUS EPITHELIAL CELLS,UR NOT SEEN /HPF; UROTHELIAL CELLS,URINE NOT SEEN /HPF
[2025-10-29 18:31] LABS: AMPHETAMINES SCREEN, URINE NEGATIVE (NEGATIVE); METHADONE SCREEN, URINE NEGATIVE (NEGATIVE); METHAMPHETAMINES SCREEN, URINE NEGATIVE (NEGATIVE); OXYCODONE SCREEN,URINE NEGATIVE (NEGATIVE); PROPOXYPHENE SCREEN,URINE NEGATIVE (NEGATIVE); THC SCREEN,URINE 50 NG/ML NEGATIVE (NEGATIVE)
[2025-10-29 19:23] VITALS: BP 151/87
== END 2025-10-29 20:59 | disposition home or self-care (01) ==
LOC: JP.ED 16:52
DX: N17.9 Acute kidney failure, unspecified (principal); I10 Essential (primary) hypertension; E78.00 Pure hypercholesterolemia, unspecified; K21.9 Gastro-esophageal reflux disease without esophagitis; E83.42 Hypomagnesemia; Z79.899 Other long term (current) drug therapy; Z79.82 Long term (current) use of aspirin; Z91.013 Allergy to seafood; Z86.16 Personal history of COVID-19; Z90.49 Acquired absence of other specified parts of digestive tract
CPT/HCPCS: 36415; 70450; 70496; 70498; 71045; 80053; 80305; 80307; 81001; 82140; 82803; 83735; 84484; 85025; 85610; 85730; 86140; 93005; 96365; 96372; 99285; A9270; J1808; J3411; J3420; J7030; Q9967; 93010; 99284